=== PATIENT | male | born 1960 | race Two or more races ===

== ENCOUNTER 2017-07-05 09:19 | Inpatient (IN) | payer OTHER ==
[~2017-07-05] VITALS: Ht 182.9 cm; Wt 124.0 kg
[2017-07-05] VITALS (15 sets, daily range): BP systolic 103–157; BP diastolic 64–80; PULSE 75–94; RESP 16–24; TEMP 99–100.5; O2SAT 100
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
[2017-07-05 09:39] LABS: AUTOMATED NEUTROPHIL # 6.2 TH/MM3 (1.8-7.7); BASOPHIL # 0.1 TH/MM3 (0-0.2); BASOPHIL % 0.9 % (0.0-2.0); EOSINOPHIL # 0.1 TH/MM3 (0-0.4); EOSINOPHIL % 1.5 % (0.0-4.0); HEMATOCRIT 39.9 % (39.0-51.0); HEMOGLOBIN 13.8 GM/DL (13.0-17.0); LYMPH % 23.9 % (9.0-44.0); LYMPHOCYTE # 2.3 TH/MM3 (1.0-4.8); MEAN CELL VOLUME 92.2 FL (80.0-100.0); MEAN CORPUSCULAR HEMOGLOBIN 31.9 PG (27.0-34.0); MEAN CORPUSCULAR HGB CONC 34.6 % (32.0-36.0); MEAN PLATELET VOLUME 9.3 FL (7.0-11.0); MONO % 8.8 % (0.0-8.0); MONOCYTE # 0.8 TH/MM3 (0-0.9); NEUT % 64.9 % (16.0-70.0); PLATELET COUNT 201 TH/MM3 (150-450); RED BLOOD COUNT 4.33 MIL/MM3 (4.50-5.90); RED CELL DISTRIBUTION WIDTH 13.5 % (11.6-17.2); WHITE BLOOD COUNT 9.5 TH/MM3 (4.0-11.0)
[2017-07-05] MEDS ORDERED: ceFAZolin 2 GM PREMIX 50 ML IV STA (09:42)
[2017-07-05 09:48] LABS: PROTHROMBIN TIME - PATIENT 10.4 SEC (9.8-11.6)
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
[2017-07-05] MEDS ORDERED: DIPHTH/TETANUS/ACEL PERTUSSIS (BOOSTER) 0.5 ML VIAL/PFS IM ONE ×2 (10:00→10:08)
[2017-07-05] MEDS ORDERED: MISCELLANEOUS NURSING INFORMATION XX SCH (10:00)
[2017-07-05] MEDS ORDERED: ONDANSETRON HCL 4 MG/2 ML VIAL IV PUSH PRN (10:00)
[2017-07-05] MEDS ORDERED: SODIUM CHLOR 0.9% 1000 ML INJ 1,000 ML IV ONE ×2 (10:00→16:15)
[2017-07-05] MEDS ORDERED: SODIUM CHLOR 0.9% 1000 ML INJ 1,000 ML IV SCH (10:00)
[2017-07-05] MEDS ORDERED: CHLORHEXIDINE GLUCONATE 2 % 1 PACK (2 CLOTHS) TOP PRN (10:00)
[2017-07-05] MEDS ORDERED: SODIUM CHLORIDE 0.9% FLUSH 10 ML FLUSH IV FLUSH PRN (10:00)
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
[2017-07-05] MEDS ORDERED: ceFAZolin 2 GM PREMIX 50 ML ONE ×2 (10:08→23:28)
[2017-07-05] MEDS: DOCUSATE SODIUM 100 MG CAP PO SCH ×2 (10:15→20:30)
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
[2017-07-05] MEDS: PROPOFOL 1000 MG/100 ML INJ 100 ML IV PRN ×3 (10:30→20:29)
[2017-07-05] MEDS ORDERED: ROCURONIUM INJ 50 MG/5 ML VIAL ONE (10:38)
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
[2017-07-05] MEDS ORDERED: LIDOCAINE HCL 1% 50 ML VIAL ONE (10:45)
[2017-07-05] MEDS: PANTOPRAZOLE SODIUM 40 MG VIAL IVP SCH (11:00)
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
[2017-07-05] MEDS ORDERED: IOHEXOL 350 MG/ML 10 ML VIAL (for RAD DIAG) IVCONTRAST ONE ×2 (11:23→18:32)
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
[2017-07-05] MEDS ORDERED: Post-op Orders (for Pharmacy) XX ONE (12:15)
[2017-07-05] MEDS ORDERED: fentaNYL DRIP 250 ML IV PRN (12:15)
[2017-07-05] MEDS ORDERED: NALOXONE HCL 0.4 MG/ML AMP IV PUSH PRN (12:15)
[2017-07-05] MEDS: SODIUM CHLOR 0.9% 1000 ML INJ 1,000 ML IV SCH ×4 (12:15→22:15)
[2017-07-05] MEDS ORDERED: ALBUMIN 5% INJ 500 ML IV ONE ×2 (12:15→12:30)
[2017-07-05] MEDS ORDERED: PROPOFOL 1000 MG/100 ML INJ 100 ML IV PRN (12:15)
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
[2017-07-05 13:16] LABS: BILIRUBIN, URINE NEG (NEG); BLOOD, URINE MOD (NEG); GLUCOSE,URINE 300 mg/dL (NEG); KETONE, URINE TRACE mg/dL (NEG); NITRITE,URINE NEG (NEG); PH, URINE 6.5 (5.0-8.5); SQUAMOUS EPITHELIAL CELL URINE <1 /hpf (0-5); URINE COLOR YELLOW (YELLW/STRAW); URINE LEUKOCYTE ESTERASE NEG (NEG)
--- NOTE | 2017-07-05 15:02 | RADRPT ---
EXAM DATE/TIME: 07/05/2017 14:38 [facility] COMPARISON: CHEST SINGLE AP, July 05, 2017, 9:22. INDICATIONS : Central line and chest tube placement. MEDICAL HISTORY : None. SURGICAL HISTORY : None. ENCOUNTER: Initial ACUITY: 1 day PAIN SCORE: Non-responsive. LOCATION: Bilateral chest FINDINGS: A single AP supine portable view of the chest was obtained and demonstrates interval placement of a r ight-sided chest tube with no visualized pneumothorax. A right subclavian central venous line has bee n place with tip projected over the superior vena cava. The endotracheal tube remains in place with t he tip 3 cm above the chung. A nasogastric tube is been placed and is seen coursing through the esop hagus and into the stomach. The heart size remains within normal limits. There are no confluent infil trates or effusions. The known rib fractures are not distinctly visualized. CONCLUSION: 1. Interval placement of right-sided chest tube and right subclavian central venous line with no visu alized pneumothorax. 2. The patient remains intubated with no acute cardiopulmonary disease. 3. Interval placement of nasogastric tube. Joselo Ortega MD on July 05, 2017 at 14:59 Board Certified Radiologist. This report was verified electronically.
[2017-07-05] MEDS: fentaNYL DRIP 250 ML IV PRN (15:22)
[2017-07-05 15:45] LABS: AUTOMATED NEUTROPHIL # 11.6 TH/MM3 (1.8-7.7); BASOPHIL % 0.1 % (0.0-2.0); HEMATOCRIT 26.3 % (39.0-51.0); HEMOGLOBIN 9.1 GM/DL (13.0-17.0); LYMPH % 6.5 % (9.0-44.0); LYMPHOCYTE # 0.9 TH/MM3 (1.0-4.8); MEAN CELL VOLUME 94.7 FL (80.0-100.0); MEAN CORPUSCULAR HEMOGLOBIN 32.6 PG (27.0-34.0); MEAN CORPUSCULAR HGB CONC 34.4 % (32.0-36.0); MEAN PLATELET VOLUME 9.8 FL (7.0-11.0); MONO % 11.6 % (0.0-8.0); MONOCYTE # 1.6 TH/MM3 (0-0.9); NEUT % 81.8 % (16.0-70.0); PLATELET COUNT 136 TH/MM3 (150-450); RED BLOOD COUNT 2.78 MIL/MM3 (4.50-5.90); RED CELL DISTRIBUTION WIDTH 13.3 % (11.6-17.2); WHITE BLOOD COUNT 14.2 TH/MM3 (4.0-11.0)
--- NOTE | 2017-07-05 16:06 | PD.PROCEDR ---
Procedure Note Procedure DX: Closed head injury, coma OP: Insertion left radial arterial line ([id number]) Procedure: Gerald test normal left hand. Left wrist supinated, prepped and draped. Left radial artery cannulated with 20 guage needle and wire easily advanced. Cannula passed over wire to 3 cm. Good waveform observed. Dressing applied. Circulation to left hand intact after procedure. Juanjose Allen MD Jul 05, 2017 16:06
[2017-07-05 16:11] LABS: BICARBONATE 21.9 MEQ/L (21.0-32.0); CALCIUM 8.2 MG/DL (8.5-10.1); CREATININE 1.89 MG/DL (0.60-1.30)
--- NOTE | 2017-07-05 16:56 | RADRPT ---
EXAM DATE/TIME: 07/05/2017 16:14 [facility] COMPARISON: CT THORACIC SPINE W CONTRAST, July 05, 2017, 9:52. INDICATIONS : Trauma. T9 fracture. MEDICAL HISTORY : Unknown. Cleared by Rad. SURGICAL HISTORY : Unknown. ENCOUNTER: Initial ACUITY: 1 day PAIN SCORE: Nonresponsive. LOCATION: t-spine TECHNIQUE: Multiplanar multisequence MRI of the thoracic spine was performed. FINDINGS: MRI examination again demonstrates a transverse 3 column T9 superior endplate fracture with associate d distraction and subluxation of the T8-T9 facet joints. There is a 3 mm anterolisthesis of T9 on T8. There is disruption of the anterior and posterior longitudinal ligaments as well as the interspinous ligaments. There is heterogeneous signal posterior epidural hematoma at T8-9 with complete effacemen t of the anterior thecal sac. There is increased T2 signal in the anterior thoracic cord at T9. Remai gualberto vertebral body heights are intact. Central canal is otherwise patent. CONCLUSION: 1. Redemonstration of 3 column chance fracture at T9 with associated distraction and subluxation of t he T8-T9 facet joints and disruption of the longitudinal and interspinous ligaments. 2. Large posterior epidural hematoma with near complete effacement of the thecal sac at T9 level. 3. Focal anterior thoracic cord edema at T9 level like reflects cord contusion. Seven Franco MD on July 05, 2017 at 16:45 Board Certified Radiologist. This report was verified electronically.
--- NOTE | 2017-07-05 16:59 | RADRPT ---
EXAM DATE/TIME: 07/05/2017 16:14 [facility] COMPARISON: CT BRAIN W/O CONTRAST, July 05, 2017, 9:35. INDICATIONS : Trauma. MEDICAL HISTORY : Drain placed in head. SURGICAL HISTORY : Unknown. Cleared by Rad. ENCOUNTER: Initial ACUITY: 1 day PAIN SCORE: Nonresponsive. LOCATION: head TECHNIQUE: Multiplanar, multisequence MRI of the brain was performed without contrast. FINDINGS: Traumatic brain injury which includes small amount of subarachnoid hemorrhage, intraventricular blood and posterior interhemispheric small subdural hematoma is again noted and has remained stable compar ed to the recent CT. A right frontal ventriculostomy has been placed. There is no evidence of significant restricted diffusion or mass effect. No discrete parenchymal hemo rrhages are noted. CONCLUSION: Stable hemorrhage status post traumatic brain injury as described above. No evidence of acute infarct, significant mass effect or edema. New right frontal ventriculostomy. Kade Lima MD on July 05, 2017 at 16:52 Board Certified Radiologist. This report was verified electronically.
--- NOTE | 2017-07-05 18:00 | PD.OP ---
Operative Report Date of Surgery: Jul 05, 2017 Preoperative Diagnosis: (1) Intracranial hemorrhage Intracranial - subarachnoid hemorrhage Postoperative Diagnosis: (1) Intracranial hemorrhage Intracranial - subarachnoid hemorrhage Procedure: Right frontal twist drill for ventriculostomy placement Anesthesia: Intravenous sedation. 1% Xylocaine local anesthetic Surgeon: Martin Akins Pole Incisor Operator(s): None Operation and Findings: The procedure was performed in the surgical intensive care unit. No family was available for informed consent. The procedure was considered medically necessary on a emergency basis. Appropriate timeout procedure was performed with all personnel present and in agreement The patient was placed in supine position with the head and neck in neutral position and the head of the bed elevated approximately 20 The right frontal region was shaved with clippers and sterilely prepped and draped. One percent Xylocaine without epinephrine was used for local infiltration over the small incision site which was made approximately 9-10 cm above the right supraorbital rim, approximately 3-1/2 to 4 cm lateral to the midline, in the mid pupillary line just anterior to the coronal suture. The hand drill was used to make a single twist drill opening in the cranium and the dura was perforated with the trocar. The Codman Bactiseal ventriculostomy catheter was advanced to a depth of 6-7 cm intracranial in a single pass with good return of spinal fluid. Opening pressure was 5 centimeter water The catheter was tunneled to the posterior frontal region with a trocar and secured to the skin with 3-0 nylon suture which was also used to close the small incision. A sterile bactericidal dressing was applied The catheter was connected to the drainage reservoir, and there was good drainage of fluid. The patient's neurologic exam remained stable following the procedure No specimen was sent There was no significant bleeding Martin Akins MD Jul 05, 2017 18:00
--- NOTE | 2017-07-05 18:10 | RADRPT ---
EXAM DATE/TIME: 07/05/2017 17:04 [facility] COMPARISON: CT BRAIN W/O CONTRAST, July 05, 2017, 9:35. INDICATIONS : Tramatic bleed,evaluate for aneurysm IV CONTRAST: 70 cc Omnipaque 350 (iohexol) IV ; Cumulative dose for multiple exams. RADIATION DOSE: 18.62 CTDIvol (mGy) ; Combined studies MEDICAL HISTORY : Non-responsive. SURGICAL HISTORY : Non-responsive. ENCOUNTER: Initial ACUITY: 1 day PAIN SCALE: Non-responsive LOCATION: CTA Brain TECHNIQUE: Volumetric scanning was performed using a multi-row detector CT scanner. The data was post processed with a variety of visualization algorithms including full volume maximum intensity projection, multi -planar sliding thin slab reformation, curved planar reformation, and surface rendering techniques. Using automated exposure control and adjustment of the mA and/or kV according to patient size, radiat ion dose was kept as low as reasonably achievable to obtain optimal diagnostic quality images. DICO M format image data is available electronically for review and comparison. FINDINGS: Anterior circulation: Distal intracranial internal carotid arteries are patent with flow extending to the middle and anteri or cerebral arteries. There is no evidence for aneurysm, vessel truncation or stenosis, and no eviden ce for vascular malformation. Posterior circulation: Symmetric distal vertebral arteries with flow extending to basilar artery. Left [employer] origin. Th ere is no evidence for aneurysm, vessel truncation or stenosis, and no evidence for vascular malforma tion. Interval placement of right frontal ventriculostomy catheter with tip near the third ventricle. CONCLUSION: 1. Unremarkable CTA examination of the brain. Specifically, no evidence for aneurysm or vascular malf ormation. Seven Franco MD on July 05, 2017 at 18:06 Board Certified Radiologist. This report was verified electronically.
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
[2017-07-05] MEDS: CHLORHEXIDINE 0.12% (ORAL KIT) 15 ML CUP MT SCH (20:00)
[2017-07-05] MEDS: levETIRAcetam INJ 500 MG in SODIUM CHLORIDE 0.9% INJ 100 ML IV SCH (20:30)
[2017-07-06] VITALS (18 sets, daily range): BP systolic 116–145; BP diastolic 54–79; PULSE 54–93; RESP 11–19; TEMP 97.8–101.4; O2SAT 98–100
[2017-07-06] MEDS: PROPOFOL 1000 MG/100 ML INJ 100 ML IV PRN ×5 (01:40→22:03)
[2017-07-06] MEDS: fentaNYL DRIP 250 ML IV PRN ×2 (02:24→14:27)
[2017-07-06 03:28] LABS: AUTOMATED NEUTROPHIL # 9.3 TH/MM3 (1.8-7.7); BASOPHIL % 0.2 % (0.0-2.0); HEMATOCRIT 25.8 % (39.0-51.0); HEMOGLOBIN 8.8 GM/DL (13.0-17.0); LYMPH % 14.3 % (9.0-44.0); LYMPHOCYTE # 1.9 TH/MM3 (1.0-4.8); MEAN CELL VOLUME 93.2 FL (80.0-100.0); MEAN CORPUSCULAR HEMOGLOBIN 31.7 PG (27.0-34.0); MEAN PLATELET VOLUME 9.9 FL (7.0-11.0); MONO % 13.5 % (0.0-8.0); MONOCYTE # 1.7 TH/MM3 (0-0.9); PLATELET COUNT 131 TH/MM3 (150-450); RED BLOOD COUNT 2.76 MIL/MM3 (4.50-5.90); RED CELL DISTRIBUTION WIDTH 13.8 % (11.6-17.2); WHITE BLOOD COUNT 12.9 TH/MM3 (4.0-11.0)
[2017-07-06 03:43] LABS: BICARBONATE 22.1 MEQ/L (21.0-32.0); CALCIUM 7.5 MG/DL (8.5-10.1); CREATININE 2.41 MG/DL (0.60-1.30)
[2017-07-06] MEDS: CHLORHEXIDINE GLUCONATE 2 % 1 PACK (2 CLOTHS) TOP SCH (04:00)
[2017-07-06] MEDS ORDERED: SODIUM CHLORID 0.9% 500 ML INJ 500 ML IV ONE (04:15)
[2017-07-06] MEDS ORDERED: SODIUM CHLOR 0.9% 250 ML INJ 250 ML IV ONE (04:15)
[2017-07-06] MEDS ORDERED: ACETAMINOPHEN 1000 MG/100 ML 65 ML IV ONE (04:15)
[2017-07-06 04:30] LABS: DIRECT BILIRUBIN ADULT 0.1 MG/DL (0.0-0.2)
[2017-07-06 04:32] LABS: INDIRECT BILIRUBIN 0.2 MG/DL (0.0-0.8); TOTAL BILIRUBIN ADULT 0.3 MG/DL (0.2-1.0); TOTAL PROTEIN 5.7 GM/DL (6.4-8.2)
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
--- NOTE | 2017-07-06 06:47 | MP ---
cc: ANTONY COPELAND MD DATE OF SURGERY 07/05/2017 PREOPERATIVE DIAGNOSIS Right hemothorax, trauma. POSTOPERATIVE DIAGNOSIS Right hemothorax, trauma. OPERATIVE PROCEDURE Chest tube placement. SURGEON Antony Copeland MD ANESTHESIA 1% Xylocaine ESTIMATED BLOOD LOSS Minimal PROCEDURE NOTE The patient prepped and draped in the usual fashion. I infiltrated 1% Xylocaine. An incision made in the midaxillary line at about the sixth intercostal space, deepened down with a hemostat into the pleural space and then a 32-[place] chest tube placed in the posterior sulcus, sutured in place with 0-silk and connected to Pleur-Evac. About 700 cc of dark old blood is drained and lung fully expanded. Antony TREVIZO/DJL /2:14 PM /6:21 AM
[2017-07-06] MEDS: DOCUSATE SODIUM 100 MG CAP PO SCH ×2 (08:31→21:00)
[2017-07-06] MEDS: levETIRAcetam INJ 500 MG in SODIUM CHLORIDE 0.9% INJ 100 ML IV SCH ×2 (08:32→21:56)
[2017-07-06] MEDS: SODIUM CHLOR 0.9% 1000 ML INJ 1,000 ML IV SCH ×2 (08:32→21:55)
[2017-07-06] MEDS: CHLORHEXIDINE 0.12% (ORAL KIT) 15 ML CUP MT SCH ×2 (08:37→21:43)
[2017-07-06] MEDS ORDERED: GLUCAGON 1 MG/ML VIAL OTHER PRN (09:45)
[2017-07-06] MEDS ORDERED: DEXTROSE 50% IN WATER 50 ML SYRINGE IV PUSH PRN (09:45)
[2017-07-06] MEDS: MAGNESIUM HYDROXIDE SUSP 30 ML CUP PO SCH ×2 (10:09→21:55)
[2017-07-06] MEDS: PANTOPRAZOLE SODIUM 40 MG VIAL IVP SCH (10:09)
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
[2017-07-06] MEDS: INSULIN ASPART SUPPLEMENTAL SCALE SQ SCH ×2 (11:29→23:13)
[2017-07-06 11:36] LABS: HEMATOCRIT 25.8 % (39.0-51.0); HEMOGLOBIN 8.7 GM/DL (13.0-17.0)
[2017-07-06] MEDS ORDERED: ROCURONIUM INJ 50 MG/5 ML SYRINGE IV PUSH ONE (12:00)
[2017-07-06] MEDS ORDERED: PHENYLEPH/NS 1000 MCG/10 ML SYR IV ONE (12:00)
[2017-07-06] MEDS ORDERED: NORMOSOL R INJ 2,000 ML IV ONE (12:00)
[2017-07-06] MEDS ORDERED: PHENYLEPHRINE HCL 10 MG/ML VIAL IV ONE (12:00)
[2017-07-06] MEDS ORDERED: PROPOFOL 200 MG/20 ML AMP IV ONE (12:00)
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
[2017-07-06] MEDS ORDERED: HEPARIN SODIUM - SQ 10,000 UNITS/ML VIAL ONE (13:15)
[2017-07-06] MEDS ORDERED: GENTAMICIN SULFATE 80 MG/2 ML VIAL ONE (13:16)
[2017-07-06] MEDS ORDERED: LIDOCAINE 1%/EPINEPHrine 1:100,000 SOLN 20 ML VIAL ONE (13:16)
[2017-07-06] MEDS ORDERED: THROMBIN (TOPICAL) 5,000 UNIT VIAL ONE (13:16)
[2017-07-06] MEDS ORDERED: GELFOAM SIZE 100 ONE (13:16)
[2017-07-06] MEDS ORDERED: PROPOFOL 500 MG/50 ML INJ 100 ML ONE (15:31)
[2017-07-06] MEDS ORDERED: ARTIFICIAL TEARS OPTH OINT 3.5 APPLIC/3.5 GM TUBO ONE (15:31)
[2017-07-06] MEDS ORDERED: ceFAZolin 2 GM PREMIX 50 ML ONE (15:41)
[2017-07-06] MEDS ORDERED: BUPIVACAINE LIPOSOME PF 1.3% 20 ML VIAL ONE (15:41)
[2017-07-06] MEDS ORDERED: BUPIVACAINE HCL PF 0.25% 30 ML VIAL ONE (15:44)
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
--- NOTE | 2017-07-06 23:20 | EKG ---
Date Performed: 07/05/2017 Time Performed: 14:54:38 PTAGE: 89 years EKG: Sinus rhythm . Normal ECG NO PREVIOUS TRACING DOCTOR: Shawn Hodgson Interpretating Date/Time 07/06/2017 23:19:48
[2017-07-07] VITALS (19 sets, daily range): BP systolic 121–149; BP diastolic 50–68; PULSE 69–100; RESP 11–17; TEMP 97.3–99.7; O2SAT 100
[2017-07-07] MEDS: fentaNYL DRIP 250 ML IV PRN ×2 (02:28→15:14)
[2017-07-07] MEDS: PROPOFOL 1000 MG/100 ML INJ 100 ML IV PRN ×5 (02:28→20:23)
[2017-07-07] MEDS: CHLORHEXIDINE GLUCONATE 2 % 1 PACK (2 CLOTHS) TOP SCH (04:00)
[2017-07-07 04:06] LABS: AUTOMATED NEUTROPHIL # 8.1 TH/MM3 (1.8-7.7); BASOPHIL # 0.1 TH/MM3 (0-0.2); BASOPHIL % 0.6 % (0.0-2.0); EOSINOPHIL # 0.2 TH/MM3 (0-0.4); EOSINOPHIL % 1.6 % (0.0-4.0); LYMPHOCYTE # 1.7 TH/MM3 (1.0-4.8); MEAN CELL VOLUME 93.7 FL (80.0-100.0); MEAN CORPUSCULAR HEMOGLOBIN 32.6 PG (27.0-34.0); MEAN CORPUSCULAR HGB CONC 34.8 % (32.0-36.0); MEAN PLATELET VOLUME 9.3 FL (7.0-11.0); MONO % 11.7 % (0.0-8.0); MONOCYTE # 1.3 TH/MM3 (0-0.9); NEUT % 71.1 % (16.0-70.0); PLATELET COUNT 98 TH/MM3 (150-450); RED BLOOD COUNT 2.45 MIL/MM3 (4.50-5.90); RED CELL DISTRIBUTION WIDTH 13.8 % (11.6-17.2); WHITE BLOOD COUNT 11.4 TH/MM3 (4.0-11.0)
[2017-07-07] MEDS: SODIUM CHLOR 0.9% 1000 ML INJ 1,000 ML IV SCH ×2 (04:15→13:48)
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
[2017-07-07 04:50] LABS: ALBUMIN 2.4 GM/DL (3.4-5.0); BICARBONATE 20.2 MEQ/L (21.0-32.0); CALCIUM 7.2 MG/DL (8.5-10.1); CALCIUM-PROTEIN CORRECTED 8.3 MG/DL (8.5-10.1); CREATININE 1.65 MG/DL (0.60-1.30); TOTAL BILIRUBIN ADULT 0.4 MG/DL (0.2-1.0)
[2017-07-07] MEDS: INSULIN ASPART SUPPLEMENTAL SCALE SQ SCH ×2 (05:04→11:38)
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
[2017-07-07] MEDS: DOCUSATE SODIUM 100 MG CAP PO SCH ×2 (09:26→20:22)
[2017-07-07] MEDS: MAGNESIUM HYDROXIDE SUSP 30 ML CUP PO SCH ×2 (09:27→20:22)
[2017-07-07] MEDS: levETIRAcetam INJ 500 MG in SODIUM CHLORIDE 0.9% INJ 100 ML IV SCH ×2 (09:27→20:22)
[2017-07-07] MEDS: CHLORHEXIDINE 0.12% (ORAL KIT) 15 ML CUP MT SCH ×2 (09:27→20:00)
[2017-07-07] MEDS: PROPRANOLOL HCL 10 MG TAB PO SCH ×3 (10:47→21:45)
[2017-07-07] MEDS: PANTOPRAZOLE SODIUM 40 MG VIAL IVP SCH (10:47)
[2017-07-07] MEDS ORDERED: SODIUM CHLOR 0.9% 1000 ML INJ 1,000 ML IV ONE (15:30)
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
[2017-07-07] MEDS ORDERED: GLUCAGON 1 MG/ML VIAL OTHER PRN (16:00)
[2017-07-07] MEDS ORDERED: DEXTROSE 50% IN WATER 50 ML VIAL(D50) IV PUSH PRN (16:00)
[2017-07-07] MEDS: MEDIUM DOSE INSULIN NOVOLOG SUPPLEMENTAL SCALE SQ SCH ×2 (18:34→23:37)
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
[2017-07-08] VITALS (24 sets, daily range): BP systolic 120–165; BP diastolic 53–72; PULSE 76–101; RESP 14–16; TEMP 98.9–100.6; O2SAT 96–100
[2017-07-08] MEDS: SODIUM CHLOR 0.9% 1000 ML INJ 1,000 ML IV SCH ×2 (00:33→14:17)
[2017-07-08] MEDS: hydrALAZINE HCL 20 MG/ML VIAL IV PRN ×3 (03:23→20:09)
[2017-07-08] MEDS: CHLORHEXIDINE GLUCONATE 2 % 1 PACK (2 CLOTHS) TOP SCH (04:00)
[2017-07-08 04:43] LABS: AUTOMATED NEUTROPHIL # 5.7 TH/MM3 (1.8-7.7); BASOPHIL % 0.3 % (0.0-2.0); EOSINOPHIL # 0.3 TH/MM3 (0-0.4); HEMOGLOBIN 7.2 GM/DL (13.0-17.0); LYMPH % 11.7 % (9.0-44.0); LYMPHOCYTE # 0.9 TH/MM3 (1.0-4.8); MEAN CELL VOLUME 94.5 FL (80.0-100.0); MEAN CORPUSCULAR HEMOGLOBIN 32.5 PG (27.0-34.0); MEAN CORPUSCULAR HGB CONC 34.4 % (32.0-36.0); MEAN PLATELET VOLUME 9.6 FL (7.0-11.0); MONO % 12.5 % (0.0-8.0); NEUT % 71.5 % (16.0-70.0); PLATELET COUNT 99 TH/MM3 (150-450); RED BLOOD COUNT 2.22 MIL/MM3 (4.50-5.90); RED CELL DISTRIBUTION WIDTH 13.8 % (11.6-17.2)
[2017-07-08 05:06] LABS: ALBUMIN 2.1 GM/DL (3.4-5.0); ALT (GPT) 50 U/L (12-78); AST (GOT) 44 U/L (15-37); BICARBONATE 21.5 MEQ/L (21.0-32.0); BLOOD UREA NITROGEN 24 MG/DL (7-18); CALCIUM 7.7 MG/DL (8.5-10.1); CHLORIDE 117 MEQ/L (98-107); CREATININE 1.18 MG/DL (0.60-1.30); GLOMERULAR FILTRATION RATE 64 ML/MIN (>89); GLUCOSE,RANDOM 237 MG/DL (74-106); SODIUM (NA) 146 MEQ/L (136-145)
[2017-07-08 05:09] LABS: ALKALINE PHOSPHATASE 52 U/L (45-117); TOTAL BILIRUBIN ADULT 0.3 MG/DL (0.2-1.0); TOTAL PROTEIN 5.2 GM/DL (6.4-8.2)
[2017-07-08] MEDS: MEDIUM DOSE INSULIN NOVOLOG SUPPLEMENTAL SCALE SQ SCH ×3 (06:00→19:57)
[2017-07-08] MEDS: PROPRANOLOL HCL 10 MG TAB PO SCH ×2 (06:00→22:38)
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
[2017-07-08] MEDS: CHLORHEXIDINE 0.12% (ORAL KIT) 15 ML CUP MT SCH ×2 (08:58→20:10)
[2017-07-08] MEDS: levETIRAcetam INJ 500 MG in SODIUM CHLORIDE 0.9% INJ 100 ML IV SCH ×2 (09:02→20:09)
[2017-07-08] MEDS: DOCUSATE SODIUM 100 MG CAP PO SCH ×2 (09:02→20:09)
[2017-07-08] MEDS: MAGNESIUM HYDROXIDE SUSP 30 ML CUP PO SCH ×2 (09:02→20:09)
[2017-07-08] MEDS ORDERED: FUROSEMIDE 40 MG/4 ML VIAL IV PUSH ONE (10:00)
[2017-07-08] MEDS ORDERED: SODIUM CHLOR 0.9% 250 ML INJ 250 ML IV ONE (10:00)
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
[2017-07-08] MEDS: INSULIN DETEMIR 100 UNITS/ML VIAL SQ SCH ×2 (12:49→20:10)
[2017-07-08] MEDS: PANTOPRAZOLE SODIUM 40 MG VIAL IVP SCH (12:49)
[2017-07-08] MEDS: ENOXAPARIN SODIUM 40 MG/0.4 ML SYRINGE SQ SCH (13:00)
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
[2017-07-08] MEDS: PROPOFOL 1000 MG/100 ML INJ 100 ML IV PRN (22:39)
[2017-07-09] VITALS (18 sets, daily range): BP systolic 120–160; BP diastolic 54–77; PULSE 8–100; RESP 14–18; TEMP 98.7–99.7; O2SAT 97–100
[2017-07-09] MEDS: MEDIUM DOSE INSULIN NOVOLOG SUPPLEMENTAL SCALE SQ SCH ×4 (00:11→18:55)
[2017-07-09] MEDS: SODIUM CHLOR 0.9% 1000 ML INJ 1,000 ML IV SCH (03:37)
[2017-07-09] MEDS: CHLORHEXIDINE GLUCONATE 2 % 1 PACK (2 CLOTHS) TOP SCH (04:00)
[2017-07-09] MEDS: PROPRANOLOL HCL 10 MG TAB PO SCH ×3 (05:01→22:25)
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
[2017-07-09] MEDS: hydrALAZINE HCL 20 MG/ML VIAL IV PRN (06:01)
[2017-07-09] MEDS: PROPOFOL 1000 MG/100 ML INJ 100 ML IV PRN ×3 (06:02→21:05)
[2017-07-09 06:12] LABS: BASOPHIL % 0.3 % (0.0-2.0); EOSINOPHIL # 0.6 TH/MM3 (0-0.4); EOSINOPHIL % 5.1 % (0.0-4.0); HEMATOCRIT 26.5 % (39.0-51.0); HEMOGLOBIN 9.4 GM/DL (13.0-17.0); LYMPHOCYTE # 1.1 TH/MM3 (1.0-4.8); MEAN CELL VOLUME 90.8 FL (80.0-100.0); MEAN CORPUSCULAR HEMOGLOBIN 32.1 PG (27.0-34.0); MEAN CORPUSCULAR HGB CONC 35.3 % (32.0-36.0); MEAN PLATELET VOLUME 9.8 FL (7.0-11.0); MONO % 10.3 % (0.0-8.0); MONOCYTE # 1.2 TH/MM3 (0-0.9); NEUT % 75.3 % (16.0-70.0); PLATELET COUNT 133 TH/MM3 (150-450); RED BLOOD COUNT 2.91 MIL/MM3 (4.50-5.90); RED CELL DISTRIBUTION WIDTH 15.1 % (11.6-17.2); WHITE BLOOD COUNT 11.9 TH/MM3 (4.0-11.0)
[2017-07-09 06:31] LABS: ALBUMIN 2.1 GM/DL (3.4-5.0); AST (GOT) 35 U/L (15-37); BICARBONATE 27.2 MEQ/L (21.0-32.0); BLOOD UREA NITROGEN 24 MG/DL (7-18); CHLORIDE 116 MEQ/L (98-107); CREATININE 1.11 MG/DL (0.60-1.30); GLOMERULAR FILTRATION RATE 68 ML/MIN (>89); GLUCOSE,RANDOM 141 MG/DL (74-106); SODIUM (NA) 150 MEQ/L (136-145)
[2017-07-09 06:34] LABS: ALKALINE PHOSPHATASE 55 U/L (45-117); ALT (GPT) 44 U/L (12-78); TOTAL BILIRUBIN ADULT 0.4 MG/DL (0.2-1.0); TOTAL PROTEIN 5.9 GM/DL (6.4-8.2)
[2017-07-09] MEDS: CHLORHEXIDINE 0.12% (ORAL KIT) 15 ML CUP MT SCH ×2 (08:00→20:00)
[2017-07-09] MEDS: DOCUSATE SODIUM 100 MG CAP PO SCH ×2 (09:42→22:24)
[2017-07-09] MEDS: LACTULOSE SYRUP 20 GM/30 ML CUP PO SCH (09:42)
[2017-07-09] MEDS: levETIRAcetam INJ 500 MG in SODIUM CHLORIDE 0.9% INJ 100 ML IV SCH ×2 (09:42→22:24)
[2017-07-09] MEDS: MAGNESIUM HYDROXIDE SUSP 30 ML CUP PO SCH ×2 (09:43→22:25)
[2017-07-09] MEDS: INSULIN DETEMIR 100 UNITS/ML VIAL SQ SCH ×2 (09:53→22:25)
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
[2017-07-09] MEDS: RESP: ALBUTEROL 2.5 MG/IPRATROPIUM 0.5 MG NEB (PRN) NEB (11:21)
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
[2017-07-09] MEDS: PANTOPRAZOLE SODIUM 40 MG VIAL IVP SCH (11:48)
[2017-07-09] MEDS: ENOXAPARIN SODIUM 40 MG/0.4 ML SYRINGE SQ SCH (13:50)
[2017-07-09] MEDS: fentaNYL DRIP 250 ML IV PRN (14:03)
[2017-07-09] MEDS: RESP: ALBUTEROL 2.5 MG/IPRATROPIUM 0.5 MG NEB (SCH) NEB ×2 (16:23→20:29)
[2017-07-10] VITALS (20 sets, daily range): BP systolic 112–179; BP diastolic 52–99; PULSE 69–121; RESP 14–15; TEMP 97.4–100.7; O2SAT 93–100
[2017-07-10] MEDS: MEDIUM DOSE INSULIN NOVOLOG SUPPLEMENTAL SCALE SQ SCH ×4 (00:24→18:00)
[2017-07-10] MEDS: CHLORHEXIDINE GLUCONATE 2 % 1 PACK (2 CLOTHS) TOP SCH ×2 (03:19→19:45)
[2017-07-10] MEDS: PROPOFOL 1000 MG/100 ML INJ 100 ML IV PRN ×2 (03:19→06:11)
[2017-07-10] MEDS: RESP: ALBUTEROL 2.5 MG/IPRATROPIUM 0.5 MG NEB (SCH) NEB ×4 (04:09→20:07)
[2017-07-10 05:26] LABS: AUTOMATED NEUTROPHIL # 8.1 TH/MM3 (1.8-7.7); BASOPHIL % 0.4 % (0.0-2.0); EOSINOPHIL # 0.8 TH/MM3 (0-0.4); EOSINOPHIL % 7.2 % (0.0-4.0); HEMATOCRIT 27.5 % (39.0-51.0); HEMOGLOBIN 9.4 GM/DL (13.0-17.0); LYMPH % 10.9 % (9.0-44.0); LYMPHOCYTE # 1.3 TH/MM3 (1.0-4.8); MEAN CELL VOLUME 92.3 FL (80.0-100.0); MEAN CORPUSCULAR HEMOGLOBIN 31.5 PG (27.0-34.0); MEAN CORPUSCULAR HGB CONC 34.1 % (32.0-36.0); MEAN PLATELET VOLUME 9.4 FL (7.0-11.0); MONO % 12.1 % (0.0-8.0); MONOCYTE # 1.4 TH/MM3 (0-0.9); NEUT % 69.4 % (16.0-70.0); PLATELET COUNT 156 TH/MM3 (150-450); RED BLOOD COUNT 2.98 MIL/MM3 (4.50-5.90); RED CELL DISTRIBUTION WIDTH 14.7 % (11.6-17.2); WHITE BLOOD COUNT 11.6 TH/MM3 (4.0-11.0)
[2017-07-10 05:44] LABS: ALBUMIN 1.9 GM/DL (3.4-5.0); AST (GOT) 28 U/L (15-37); BICARBONATE 28.2 MEQ/L (21.0-32.0); BLOOD UREA NITROGEN 28 MG/DL (7-18); CALCIUM 8.4 MG/DL (8.5-10.1); CHLORIDE 114 MEQ/L (98-107); CREATININE 1.03 MG/DL (0.60-1.30); GLOMERULAR FILTRATION RATE 74 ML/MIN (>89); GLUCOSE,RANDOM 231 MG/DL (74-106); SODIUM (NA) 147 MEQ/L (136-145)
[2017-07-10 05:45] LABS: ALT (GPT) 41 U/L (12-78)
[2017-07-10 05:47] LABS: ALKALINE PHOSPHATASE 110 U/L (45-117); TOTAL BILIRUBIN ADULT 0.4 MG/DL (0.2-1.0); TOTAL PROTEIN 6.1 GM/DL (6.4-8.2)
--- NOTE | 2017-07-10 06:05 | RADRPT ---
EXAM DATE/TIME: 07/10/2017 05:11 [facility] COMPARISON: CHEST SINGLE AP, July 09, 2017, 4:15. INDICATIONS : Shortness of breath, possible pulmonary disease. MEDICAL HISTORY : None. SURGICAL HISTORY : None. ENCOUNTER: Subsequent ACUITY: 1 week PAIN SCORE: Non-responsive. LOCATION: Bilateral chest FINDINGS: Single portable frontal view of the chest shows a right thoracostomy tube and right subclavian centra l line. Tip of the endotracheal tube 1 cm from the chung. Nasogastric tube coiled in the stomach. No pneumothorax. Bibasilar consolidations left more so than right. These are unchanged. Heart is normal in size. Orthopedic hardware. CONCLUSION: Unchanged bibasilar infiltrates. Giacomo Ervin Jr., MD on July 10, 2017 at 6:03 Board Certified Radiologist. This report was verified electronically.
[2017-07-10] MEDS: PROPRANOLOL HCL 10 MG TAB PO SCH ×3 (06:10→22:58)
[2017-07-10] MEDS: CHLORHEXIDINE 0.12% (ORAL KIT) 15 ML CUP MT SCH ×2 (08:00→20:00)
[2017-07-10] MEDS: LACTULOSE SYRUP 20 GM/30 ML CUP PO SCH (08:55)
[2017-07-10] MEDS: MAGNESIUM HYDROXIDE SUSP 30 ML CUP PO SCH ×2 (08:55→22:57)
[2017-07-10] MEDS: levETIRAcetam INJ 500 MG in SODIUM CHLORIDE 0.9% INJ 100 ML IV SCH ×2 (08:55→22:57)
[2017-07-10] MEDS: INSULIN DETEMIR 100 UNITS/ML VIAL SQ SCH ×2 (08:56→22:58)
[2017-07-10] MEDS: DOCUSATE SODIUM 100 MG CAP PO SCH ×2 (09:00→19:44)
[2017-07-10] MEDS: SODIUM CHLORIDE FLUSH BID IV FLUSH SCH ×2 (09:00→22:57)
[2017-07-10] MEDS: hydrALAZINE HCL 20 MG/ML VIAL IV PRN (09:33)
[2017-07-10] MEDS: PANTOPRAZOLE SODIUM 40 MG VIAL IVP SCH (09:33)
[2017-07-10] MEDS ORDERED: BISACODYL 10 MG SUPP RECTAL ONE (10:00)
[2017-07-10] MEDS ORDERED: FUROSEMIDE 40 MG/4 ML VIAL IV PUSH ONE (10:15)
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
[2017-07-10] MEDS: ENOXAPARIN SODIUM 40 MG/0.4 ML SYRINGE SQ SCH (13:00)
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
[2017-07-10] MEDS ORDERED: IOHEXOL 350 MG/ML 10 ML VIAL (for RAD DIAG) IVCONTRAST ONE (17:05)
--- NOTE | 2017-07-10 17:26 | RADRPT ---
EXAM DATE/TIME: 07/10/2017 16:39 [facility] COMPARISON: CT THORAX W CONTRAST, July 05, 2017, 9:52. INDICATIONS : Respiratory distress. IV CONTRAST: 65 cc Omnipaque 350 (iohexol) IV RADIATION DOSE: 21.66 CTDIvol (mGy) ; Patient body habitus MEDICAL HISTORY : Hypertension. diabetes SURGICAL HISTORY : None. ENCOUNTER: Initial ACUITY: 1 day PAIN SCALE: Non-responsive LOCATION: Bilateral chest TECHNIQUE: Volumetric scanning of the chest was performed using a pulmonary embolism protocol MIP images were re constructed. Using automated exposure control and adjustment of the mA and/or kV according to patien t size, radiation dose was kept as low as reasonably achievable to obtain optimal diagnostic quality images. DICOM format image data is available electronically for review and comparison. Follow-up recommendations for detected pulmonary nodules are based at a minimum on nodule size and pa tient risk factors according to Fleischner Society Guidelines. FINDINGS: Multiple fractures are again seen. Chest tube is present on the right side. There is a small ant erior pneumothorax on the right. Extensive bibasilar consolidation is present with scattered parenchy mal infiltrates in both lungs. There is a tiny left pleural effusion. There is no evidence for PE for technique. There is an approximate 3.7 cm soft tissue density within the mediastinum in the substern al location probably a hematoma slightly larger since the prior study at which time it measured 3.4 c m. There are postsurgical changes in lower thoracic spine otherwise no change. CONCLUSION: 1. Substernal hematoma is slightly larger. 2. Small left pleural effusion and right pneumothorax. 3. Bibasilar consolidation and bilateral infiltrates. Kaylene Sharp MD on July 10, 2017 at 17:19 Board Certified Radiologist. This report was verified electronically.
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
[2017-07-11] VITALS (17 sets, daily range): BP systolic 103–151; BP diastolic 46–70; PULSE 69–106; RESP 14–18; TEMP 98.8–99.6; O2SAT 90–100
[2017-07-11] MEDS: PROPOFOL 1000 MG/100 ML INJ 100 ML IV PRN ×3 (03:16→17:28)
[2017-07-11] MEDS: RESP: ALBUTEROL 2.5 MG/IPRATROPIUM 0.5 MG NEB (SCH) NEB ×4 (03:31→20:55)
[2017-07-11 04:13] LABS: AUTOMATED NEUTROPHIL # 7.4 TH/MM3 (1.8-7.7); BASOPHIL # 0.1 TH/MM3 (0-0.2); BASOPHIL % 0.7 % (0.0-2.0); EOSINOPHIL # 0.6 TH/MM3 (0-0.4); EOSINOPHIL % 5.6 % (0.0-4.0); HEMATOCRIT 25.5 % (39.0-51.0); HEMOGLOBIN 8.6 GM/DL (13.0-17.0); LYMPH % 15.8 % (9.0-44.0); LYMPHOCYTE # 1.8 TH/MM3 (1.0-4.8); MEAN CELL VOLUME 92.5 FL (80.0-100.0); MEAN CORPUSCULAR HEMOGLOBIN 31.3 PG (27.0-34.0); MEAN CORPUSCULAR HGB CONC 33.9 % (32.0-36.0); MEAN PLATELET VOLUME 9.5 FL (7.0-11.0); MONO % 12.2 % (0.0-8.0); MONOCYTE # 1.4 TH/MM3 (0-0.9); NEUT % 65.7 % (16.0-70.0); PLATELET COUNT 202 TH/MM3 (150-450); RED BLOOD COUNT 2.75 MIL/MM3 (4.50-5.90); RED CELL DISTRIBUTION WIDTH 14.6 % (11.6-17.2); WHITE BLOOD COUNT 11.3 TH/MM3 (4.0-11.0)
[2017-07-11 04:57] LABS: ALBUMIN 1.8 GM/DL (3.4-5.0); ALKALINE PHOSPHATASE 74 U/L (45-117); ALT (GPT) 41 U/L (12-78); AST (GOT) 28 U/L (15-37); BLOOD UREA NITROGEN 41 MG/DL (7-18); CALCIUM 8.4 MG/DL (8.5-10.1); CHLORIDE 113 MEQ/L (98-107); CREATININE 1.47 MG/DL (0.60-1.30); GLOMERULAR FILTRATION RATE 49 ML/MIN (>89); GLUCOSE,RANDOM 238 MG/DL (74-106); SODIUM (NA) 149 MEQ/L (136-145); TOTAL BILIRUBIN ADULT 0.4 MG/DL (0.2-1.0)
[2017-07-11] MEDS: MEDIUM DOSE INSULIN NOVOLOG SUPPLEMENTAL SCALE SQ SCH ×4 (05:19→18:00)
--- NOTE | 2017-07-11 05:28 | RADRPT ---
EXAM DATE/TIME: 07/11/2017 04:58 [facility] COMPARISON: CHEST SINGLE AP, July 10, 2017, 5:11. INDICATIONS : Respiratory distress. MEDICAL HISTORY : Hypertension. Diabetes. SURGICAL HISTORY : None. ENCOUNTER: Subsequent ACUITY: 1 week PAIN SCORE: Non-responsive. LOCATION: Bilateral chest FINDINGS: 2 portable frontal views of the chest show bilateral pulmonary infiltrates more pronounced on the lef t. These have progressed in the prior study. Heart is normal in size. Right thoracostomy tube without pneumothorax. Right subclavian central line. Tip of the endotracheal tube 2 cm from the chung. Naso gastric tube coiled in the body the stomach. Heart is normal in size. Orthopedic hardware involving t he thoracic spine. CONCLUSION: Worsening bilateral pulmonary infiltrates. Giacomo Ervin Jr., MD on July 11, 2017 at 5:26 Board Certified Radiologist. This report was verified electronically.
[2017-07-11] MEDS: PROPRANOLOL HCL 10 MG TAB PO SCH ×3 (06:00→20:53)
[2017-07-11] MEDS ORDERED: BISACODYL 10 MG SUPP RECTAL ONE (07:15)
[2017-07-11] MEDS ORDERED: BISACODYL 10 MG SUPP RECTAL PRN (07:15)
[2017-07-11] MEDS: INSULIN DETEMIR 100 UNITS/ML VIAL SQ SCH ×2 (07:52→21:00)
[2017-07-11] MEDS: LACTULOSE SYRUP 20 GM/30 ML CUP PO SCH (07:52)
[2017-07-11] MEDS: LANSOPRAZOLE SOLUTAB 30 MG TAB NG SCH (07:52)
[2017-07-11] MEDS: MAGNESIUM HYDROXIDE SUSP 30 ML CUP PO SCH ×2 (07:52→20:53)
[2017-07-11] MEDS: CHLORHEXIDINE 0.12% (ORAL KIT) 15 ML CUP MT SCH ×2 (07:53→20:00)
[2017-07-11] MEDS: fentaNYL DRIP 250 ML IV PRN ×2 (07:53→22:38)
[2017-07-11] MEDS: SODIUM CHLORIDE FLUSH BID IV FLUSH SCH ×2 (07:53→20:53)
[2017-07-11] MEDS: levETIRAcetam INJ 500 MG in SODIUM CHLORIDE 0.9% INJ 100 ML IV SCH ×2 (07:53→20:48)
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
--- NOTE | 2017-07-11 12:57 | RADRPT ---
EXAM DATE/TIME: 07/11/2017 11:44 [facility] COMPARISON: MRI BRAIN W/O CONTRAST, July 05, 2017, 16:14. INDICATIONS : Hemorrhage. Trauma. MEDICAL HISTORY : None. SURGICAL HISTORY : Fusion, thoracic. ENCOUNTER: Subsequent ACUITY: 4-6 days PAIN SCORE: Nonresponsive. LOCATION: head. TECHNIQUE: Multiplanar, multisequence MRI of the brain was performed without contrast. FINDINGS: Again seen are changes of traumatic brain injury with a persistent small amount of subarachnoid hemor rhage. There is also persistent intraventricular hemorrhage and trace residual subdural hemorrhage po steriorly. Bifrontal ventriculostomy present. Ventricular size is stable. No recent infarct. No mass effect or shift. CONCLUSION: 1. Relatively stable posttraumatic changes in the brain as above compared with July 05. Right fro ntal ventriculostomy. No recent infarct. Billy Aponte MD on July 11, 2017 at 12:51 Board Certified Radiologist. This report was verified electronically.
--- NOTE | 2017-07-11 12:59 | RADRPT ---
EXAM DATE/TIME: 07/11/2017 11:44 [facility] COMPARISON: CT CERVICAL SPINE W/O CONTRAST, July 05, 2017, 9:35. INDICATIONS : Quadriparesis. Post op. MEDICAL HISTORY : None. SURGICAL HISTORY : Fusion, thoracic. ENCOUNTER: Subsequent ACUITY: 4-6 days PAIN SCORE: Nonresponsive. LOCATION: neck. TECHNIQUE: Multiplanar, multisequence MRI examination of the cervical spine was performed. FINDINGS: The marrow signal appears intact, and the spinal cord appears intact with technique. C2-C3: No appreciable compromise to the thecal sac, exiting nerve roots are seen. The neural forami na are patent bilaterally. No appreciable thecal sac stenosis is seen. C3-C4: No appreciable compromise to the thecal sac, exiting nerve roots are seen. The neural forami na are patent bilaterally. No appreciable thecal sac stenosis is seen. C4-C5: There is slight neural foramina compromise on the right due to asymmetrical bulging disc and hypertrophic changes. C5-C6: No appreciable compromise to the thecal sac, exiting nerve roots are seen. The neural foramin a are patent bilaterally. No appreciable thecal sac stenosis is seen. C6-C7: No appreciable compromise to the thecal sac, exiting nerve roots are seen. The neural foramin a are patent bilaterally. No appreciable thecal sac stenosis is seen. C7-T1: No appreciable compromise to the thecal sac, exiting nerve roots are seen. The neural foramin a are patent bilaterally. No appreciable thecal sac stenosis is seen. CONCLUSION: Slight neural foramina compromise right C4-C5 and spinal cord appears intact without any significant thecal sac stenosis. Kaylene Sharp MD on July 11, 2017 at 12:51 Board Certified Radiologist. This report was verified electronically.
[2017-07-11] MEDS: ENOXAPARIN SODIUM 40 MG/0.4 ML SYRINGE SQ SCH (13:00)
--- NOTE | 2017-07-11 13:05 | RADRPT ---
EXAM DATE/TIME: 07/11/2017 11:44 [facility] COMPARISON: MRI THORACIC SPINE W/O CONTRAST, July 05, 2017, 16:14. CT THORACIC SPINE W CONTRAST, June, 9:52. CT THORAX W CONTRAST, July 05, 2017, 9:52. INDICATIONS : Myelopathy. Post op. MEDICAL HISTORY : None. SURGICAL HISTORY : Fusion, thoracic. ENCOUNTER: Subsequent ACUITY: 4-6 days PAIN SCORE: Nonresponsive. LOCATION: spine. TECHNIQUE: Multiplanar multisequence MRI of the thoracic spine was performed. FINDINGS: The marrow signal appears intact. No significant compression deformities are seen. No significant c ord compression is identified. The spinal cord appears intact. Surgical screws traverse the bodies of T7, T8, T9, T10 with posterior stabilization hardware in place. Right chest tube is present with p arenchymal consolidation in the right lung not adequately characterized. Previously seen fracture of T9 vertebrae is difficult to visualize due to magnetic susceptibility artifact. T1-T2: No appreciable compromise to the thecal sac, spinal cord, or the exiting nerve roots are seen. The neural foramina are grossly patent bilaterally. T2-T3: No appreciable compromise to the thecal sac, spinal cord, or the exiting nerve roots are seen. The neural foramina are grossly patent bilaterally. T3-T4: No appreciable compromise to the thecal sac, spinal cord, or the exiting nerve roots are seen. The neural foramina are grossly patent bilaterally. T4-T5: No appreciable compromise to the thecal sac, spinal cord, or the exiting nerve roots are seen. The neural foramina are grossly patent bilaterally. T5-T6: No appreciable compromise to the thecal sac, spinal cord, or the exiting nerve roots are seen. The neural foramina are grossly patent bilaterally. T6-T7: No appreciable compromise to the thecal sac, spinal cord, or the exiting nerve roots are seen. The neural foramina are grossly patent bilaterally. T7-T8: There is effacement of the anterior CSF space due to chronic hypertrophic changes with co mpromise to the anterior CSF space, however overall no significant thecal sac stenosis is seen. T8-T9: There is significant thecal sac stenosis due to anterior extradural impression at this lev el from mixed signal intensity material probably hemorrhage causing cord compression. T9-T10: No appreciable compromise to the thecal sac, spinal cord, or the exiting nerve roots are see n. The neural foramina are grossly patent bilaterally. T10-T11: No appreciable compromise to the thecal sac, spinal cord, or the exiting nerve roots are se en. The neural foramina are grossly patent bilaterally. T11-T12: No appreciable compromise to the thecal sac, spinal cord, or the exiting nerve roots are se en. The neural foramina are grossly patent bilaterally. T12-L1: No appreciable compromise to the thecal sac, spinal cord, or the exiting nerve roots are s een. The neural foramina are grossly patent bilaterally. CONCLUSION: Postsurgical changes and significant stenosis at T8-T9 causing cord compression. Kaylene Sharp MD on July 11, 2017 at 12:57 Board Certified Radiologist. This report was verified electronically.
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
[2017-07-11] MEDS: CEFEPIME INJ 2,000 MG in SODIUM CHLORIDE 0.9% INJ 100 ML IV SCH ×2 (16:00→22:37)
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
[2017-07-12] VITALS (17 sets, daily range): BP systolic 127–176; BP diastolic 54–72; PULSE 72–100; RESP 14–19; TEMP 98.5–100.9; O2SAT 92–100
[2017-07-12] MEDS: RESP: ALBUTEROL 2.5 MG/IPRATROPIUM 0.5 MG NEB (SCH) NEB ×4 (03:14→19:39)
[2017-07-12] MEDS: CHLORHEXIDINE GLUCONATE 2 % 1 PACK (2 CLOTHS) TOP SCH (04:00)
[2017-07-12 05:37] LABS: HEMOGLOBIN 8.1 GM/DL (13.0-17.0); MEAN CELL VOLUME 93.8 FL (80.0-100.0); MEAN CORPUSCULAR HEMOGLOBIN 31.6 PG (27.0-34.0); MEAN CORPUSCULAR HGB CONC 33.7 % (32.0-36.0); MEAN PLATELET VOLUME 9.6 FL (7.0-11.0); PLATELET COUNT 216 TH/MM3 (150-450); RED BLOOD COUNT 2.56 MIL/MM3 (4.50-5.90); RED CELL DISTRIBUTION WIDTH 14.5 % (11.6-17.2); WHITE BLOOD COUNT 10.3 TH/MM3 (4.0-11.0)
[2017-07-12 05:56] LABS: ALBUMIN 1.7 GM/DL (3.4-5.0); ALT (GPT) 51 U/L (12-78); AST (GOT) 51 U/L (15-37); BLOOD UREA NITROGEN 46 MG/DL (7-18); CALCIUM 8.5 MG/DL (8.5-10.1); CHLORIDE 116 MEQ/L (98-107); CREATININE 1.39 MG/DL (0.60-1.30); GLOMERULAR FILTRATION RATE 53 ML/MIN (>89); GLUCOSE,RANDOM 234 MG/DL (74-106); SODIUM (NA) 152 MEQ/L (136-145)
[2017-07-12 05:59] LABS: ALKALINE PHOSPHATASE 97 U/L (45-117); TOTAL BILIRUBIN ADULT 0.4 MG/DL (0.2-1.0)
[2017-07-12] MEDS: PROPRANOLOL HCL 10 MG TAB PO SCH ×3 (06:00→21:16)
[2017-07-12] MEDS: MEDIUM DOSE INSULIN NOVOLOG SUPPLEMENTAL SCALE SQ SCH ×4 (06:00→18:00)
--- NOTE | 2017-07-12 06:02 | RADRPT ---
EXAM DATE/TIME: 07/12/2017 05:30 [facility] COMPARISON: CHEST SINGLE AP, July 11, 2017, 4:58. INDICATIONS : Shortness of breath. MEDICAL HISTORY : Hypertension. Diabetes SURGICAL HISTORY : None. ENCOUNTER: Initial ACUITY: 1 week PAIN SCORE: Non-responsive. LOCATION: Bilateral chest FINDINGS: Single portable frontal view the chest shows the tip of the endotracheal tube 2 cm proximal to the ca felicia. Right subclavian central line and nasogastric tube noted. There has been improvement in the dax ateral pulmonary infiltrates. Tiny left effusion suspected. Heart is at the upper limits of normal in terms of size. Orthopedic hardware noted. CONCLUSION: Improvement in the bilateral pulmonary infiltrates. Giacomo Ervin Jr., MD on July 12, 2017 at 6:00 Board Certified Radiologist. This report was verified electronically.
[2017-07-12 07:06] LABS: BANDS 4 % (0-6); LYMPHOCYTES 14 % (9-44); MONOCYTES 15 % (0-8); MYELOCYTES 1 % (0-0); NEUTROPHIL # MANUAL DIFF 6.5 TH/MM3 (1.8-7.7); POLYS (SEG NEUTROPHILS) 58 % (16-70)
[2017-07-12] MEDS: SODIUM CHLOR 0.45% 1000 ML INJ 1,000 ML IV SCH ×2 (07:41→20:20)
[2017-07-12] MEDS: CEFEPIME INJ 2,000 MG in SODIUM CHLORIDE 0.9% INJ 100 ML IV SCH ×2 (07:41→16:00)
[2017-07-12] MEDS: CHLORHEXIDINE 0.12% (ORAL KIT) 15 ML CUP MT SCH ×2 (07:42→20:00)
[2017-07-12] MEDS: levETIRAcetam INJ 500 MG in SODIUM CHLORIDE 0.9% INJ 100 ML IV SCH ×2 (07:42→21:00)
[2017-07-12] MEDS: LACTULOSE SYRUP 20 GM/30 ML CUP PO SCH (07:42)
[2017-07-12] MEDS: SODIUM CHLORIDE FLUSH BID IV FLUSH SCH ×2 (07:42→21:00)
[2017-07-12] MEDS: MAGNESIUM HYDROXIDE SUSP 30 ML CUP PO SCH ×2 (07:42→21:00)
[2017-07-12] MEDS: INSULIN DETEMIR 100 UNITS/ML VIAL SQ SCH ×2 (07:42→21:00)
[2017-07-12] MEDS: LANSOPRAZOLE SOLUTAB 30 MG TAB NG SCH (07:42)
[2017-07-12] MEDS: PROPOFOL 1000 MG/100 ML INJ 100 ML IV PRN ×2 (07:45→13:30)
[2017-07-12] MEDS: fentaNYL DRIP 250 ML IV PRN (08:15)
[2017-07-12] MEDS ORDERED: THROMBIN (TOPICAL) 5,000 UNIT VIAL ONE (11:19)
[2017-07-12] MEDS ORDERED: GELFOAM SIZE 100 ONE (11:19)
[2017-07-12] MEDS ORDERED: LIDOCAINE 1%/EPINEPHrine 1:100,000 SOLN 20 ML VIAL ONE (11:20)
[2017-07-12] MEDS ORDERED: GENTAMICIN SULFATE 80 MG/2 ML VIAL ONE (11:20)
[2017-07-12] MEDS ORDERED: PHENYLEPHRINE HCL 10 MG/ML VIAL IV ONE (12:00)
[2017-07-12] MEDS: FREE WATER G-TUBE SCH ×2 (12:00→18:00)
[2017-07-12] MEDS ORDERED: ROCURONIUM INJ 50 MG/5 ML SYRINGE IV PUSH ONE (12:00)
[2017-07-12] MEDS ORDERED: PHENYLEPH/NS 1000 MCG/10 ML SYR IV ONE (12:00)
[2017-07-12] MEDS: ENOXAPARIN SODIUM 40 MG/0.4 ML SYRINGE SQ SCH (12:15)
[2017-07-12] MEDS: ENALAPRILAT 1.25 MG/ML VIAL IV PUSH PRN (13:07)
[2017-07-12] MEDS: hydrALAZINE HCL 20 MG/ML VIAL IV PRN ×2 (13:13→21:16)
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
[2017-07-12] MEDS ORDERED: ceFAZolin 2 GM PREMIX 50 ML ONE (16:16)
[2017-07-12] MEDS ORDERED: fentaNYL CITRATE 250 MCG/5 ML AMP ONE (16:17)
--- NOTE | 2017-07-12 21:27 | PD.OP ---
Operative Report Date of Surgery: Jul 12, 2017 Preoperative Diagnosis: (1) Fracture of thoracic spine with cord lesion T8-9 fracture subluxation with spinal cord contusion. Status post T7-10 posterior fusion with instrumentation, T8-9 decompression with semi- hemilaminectomy, discectomy, interbody fusion. Postoperative MRI with persistent residual spinal cord compression. Possible postoperative epidural hematoma versus residual disc material, graft material dislodgment with cord compression. Postoperative Diagnosis: (1) Fracture of thoracic spine with cord lesion T8-9 fracture subluxation with spinal cord contusion. Status post T7-10 posterior fusion with instrumentation, T8-9 decompression with semi- hemilaminectomy, discectomy, interbody fusion. 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 Postoperative epidural hematoma. Procedure: 1. Revision T8-T9 decompressive semi-laminectomy 2. Evacuation of postoperative epidural hematoma 3. Right T8-9 discectomy, resection sequestered disc fragments 4. Revision-supplementation right T8-9 interbody fusion with lamina autograft bone Anesthesia: General Surgeon: Martin Akins Car Builder(s): Xochitl Guillaume Operation and Findings: Findings: Moderate epidural hematoma surrounding T8-9 level thecal sac. Edematous torn posterior longitudinal ligament and ligamentum flavum with some thecal sac compression. Small fragments of herniated disc at the right anterolateral canal with mild thecal sac impingement. Procedure in detail: The patient was brought into the operating room already intubated and general endotracheal anesthesia induced without difficulty. JAIME hose and sequential compression devices were placed. The Mabry catheter was in place Lines were established by anesthesia. The patient was positioned on the [facility] Kyrie table with the side bolsters and all extremities appropriately padded. Appropriate time-out procedure was performed with all personnel present and in agreement. 1% Xylocaine with epinephrine was used for local infiltration over the incision site which was made at the previous midthoracic incision. Previously placed sutures were removed. The previous operative site was reopened and the cerebellar retractors placed. There was noted to be moderate amount of epidural hematoma surrounding the thecal sac at the T8-9 level. This was carefully elevated away from the thecal sac with the thin ligament dissector. There was noted to be some thickening and edema and retraction of the ligament of flavum ventral to the residual T8-T9 lamina. This was freed up with the thin ligament dissector and removed with the 2 and 3 mm Kerrison rongeur along with a further portion of the ventral T8 and T9 lamina in order to better decompress the thecal sac. The thecal sac was carefully inspected, there was a complete tear through the dura at the right lateral T9 level which was better visualized after additional removal of T9 lamina and ligamentum flavum. Small amount of CSF leakage was encountered in this region. Due to the extensive nature of the dural tear from the previous trauma it was not felt that direct repair of the dura in this region could be accomplished. An additional portion of the right T8-9 facet was removed to better access the right lateral recess. In this area as some fragments of residual herniated disc material were encountered lateral and ventral to the right lateral thecal sac. These appear to be causing only some mild impingement. They were carefully pushed out away from the thecal sac and spinal cord and removed with the pituitary biopsy forceps which were also used to further remove disc material to the right of the previously placed interbody cage. The vertebral endplate at the right T8-9 level was further scraped down to cancellus bone with the reverse curette and any debris removed with the biopsy forceps. The retained lamina autograft from the new T8-T9 laminectomy was placed at the right T8-9 interspace and packed over the anterior interspace with the impactor against the previously placed interbody cage which appeared to be firmly in place. There was some torn edematous posterior longitudinal ligament ventral to the thecal sac which was carefully freed up and removed with the 11 blade knife and the pituitary biopsy forceps. A careful inspection was made surrounding the entire thecal sac at the T8-9 level. There did not appear to be any significant residual spinal cord compression. As noted in the previous operative report, the spinal cord appeared very contused and edematous. The exiting nerve roots were followed to the level of the medial pedicle to ensure that they were well decompressed. Bleeding was carefully controlled with the bipolar forceps. A 7 mm flat fluted drain was left in place at the operative site and brought out through an incision in the mid lumbar region and secured to the skin with nylon suture and attached to a bulb suction. The closure was performed with 0 Vicryl interrupted for the deep and superficial fascia, with 3-0 Vicryl interrupted subcutaneous closure, and 4-0 Vicryl running subcuticular closure. A dressing of sterile Mastisol, Steri- Strips, and Primapore was placed. The patient was taken to recovery room in stable condition. All counts were correct at the end of the case. Estimated blood loss was 50 cc. No specimen was sent to pathology Martin Akins MD Jul 12, 2017 21:27
[2017-07-13] VITALS (17 sets, daily range): BP systolic 143–176; BP diastolic 62–87; PULSE 66–100; RESP 15–18; TEMP 98.9–100; O2SAT 93–99
[2017-07-13] MEDS: ENALAPRILAT 1.25 MG/ML VIAL IV PUSH PRN (01:20)
[2017-07-13] MEDS: PROPOFOL 1000 MG/100 ML INJ 100 ML IV PRN ×5 (01:46→19:58)
[2017-07-13] MEDS: fentaNYL DRIP 250 ML IV PRN ×2 (02:24→14:47)
[2017-07-13] MEDS: hydrALAZINE HCL 20 MG/ML VIAL IV PRN ×2 (02:59→05:15)
[2017-07-13] MEDS: CHLORHEXIDINE GLUCONATE 2 % 1 PACK (2 CLOTHS) TOP SCH (04:00)
[2017-07-13] MEDS: RESP: ALBUTEROL 2.5 MG/IPRATROPIUM 0.5 MG NEB (SCH) NEB ×3 (04:41→15:52)
[2017-07-13] MEDS: PROPRANOLOL HCL 10 MG TAB PO SCH ×3 (05:15→21:33)
[2017-07-13] MEDS: FREE WATER G-TUBE SCH ×5 (05:58→23:08)
[2017-07-13] MEDS: MEDIUM DOSE INSULIN NOVOLOG SUPPLEMENTAL SCALE SQ SCH ×5 (06:00→23:19)
[2017-07-13 06:23] LABS: AUTOMATED NEUTROPHIL # 7.6 TH/MM3 (1.8-7.7); BASOPHIL # 0.1 TH/MM3 (0-0.2); BASOPHIL % 0.6 % (0.0-2.0); EOSINOPHIL # 0.6 TH/MM3 (0-0.4); EOSINOPHIL % 5.5 % (0.0-4.0); HEMATOCRIT 23.2 % (39.0-51.0); HEMOGLOBIN 8.1 GM/DL (13.0-17.0); LYMPH % 14.9 % (9.0-44.0); LYMPHOCYTE # 1.7 TH/MM3 (1.0-4.8); MEAN CELL VOLUME 93.4 FL (80.0-100.0); MEAN CORPUSCULAR HEMOGLOBIN 32.4 PG (27.0-34.0); MEAN CORPUSCULAR HGB CONC 34.7 % (32.0-36.0); MEAN PLATELET VOLUME 9.6 FL (7.0-11.0); MONO % 11.6 % (0.0-8.0); MONOCYTE # 1.3 TH/MM3 (0-0.9); NEUT % 67.4 % (16.0-70.0); PLATELET COUNT 255 TH/MM3 (150-450); RED BLOOD COUNT 2.49 MIL/MM3 (4.50-5.90); RED CELL DISTRIBUTION WIDTH 14.2 % (11.6-17.2); WHITE BLOOD COUNT 11.3 TH/MM3 (4.0-11.0)
[2017-07-13 06:46] LABS: BICARBONATE 28.5 MEQ/L (21.0-32.0); CALCIUM 8.4 MG/DL (8.5-10.1); CREATININE 1.13 MG/DL (0.60-1.30)
[2017-07-13] MEDS: CHLORHEXIDINE 0.12% (ORAL KIT) 15 ML CUP MT SCH ×2 (08:00→21:34)
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
[2017-07-13] MEDS: INSULIN DETEMIR 100 UNITS/ML VIAL SQ SCH ×2 (09:00→21:34)
[2017-07-13] MEDS: LACTULOSE SYRUP 20 GM/30 ML CUP PO SCH (09:00)
[2017-07-13] MEDS: SODIUM CHLORIDE FLUSH BID IV FLUSH SCH ×2 (09:00→21:34)
[2017-07-13] MEDS: LANSOPRAZOLE SOLUTAB 30 MG TAB NG SCH (09:00)
[2017-07-13] MEDS: MAGNESIUM HYDROXIDE SUSP 30 ML CUP PO SCH ×2 (09:00→21:33)
[2017-07-13] MEDS ORDERED: AMANTADINE HCL SOLN 100 MG/10 ML UDC PO ONE (09:45)
[2017-07-13] MEDS: CEFEPIME INJ 2,000 MG in SODIUM CHLORIDE 0.9% INJ 100 ML IV SCH ×5 (10:12→23:19)
[2017-07-13] MEDS: METOPROLOL TARTRATE 100 MG TAB PO SCH ×2 (10:38→21:33)
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
[2017-07-13] MEDS ORDERED: PROPOFOL 200 MG/20 ML AMP IV ONE (12:00)
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
[2017-07-13] MEDS ORDERED: AMANTADINE HCL SOLN 100 MG/10 ML UDC PO SCH (14:00)
[2017-07-14] VITALS (19 sets, daily range): BP systolic 124–166; BP diastolic 68–79; PULSE 64–88; RESP 16–25; TEMP 99.4–101; O2SAT 91–98
[2017-07-14] MEDS: PROPOFOL 1000 MG/100 ML INJ 100 ML IV PRN ×2 (00:30→05:00)
[2017-07-14] MEDS: CHLORHEXIDINE GLUCONATE 2 % 1 PACK (2 CLOTHS) TOP SCH (02:42)
[2017-07-14] MEDS: hydrALAZINE HCL 20 MG/ML VIAL IV PRN (03:12)
[2017-07-14 03:50] LABS: AUTOMATED NEUTROPHIL # 8.2 TH/MM3 (1.8-7.7); BASOPHIL # 0.1 TH/MM3 (0-0.2); BASOPHIL % 0.6 % (0.0-2.0); EOSINOPHIL # 0.7 TH/MM3 (0-0.4); EOSINOPHIL % 6.1 % (0.0-4.0); HEMATOCRIT 23.9 % (39.0-51.0); HEMOGLOBIN 8.4 GM/DL (13.0-17.0); LYMPH % 15.6 % (9.0-44.0); LYMPHOCYTE # 1.9 TH/MM3 (1.0-4.8); MEAN CELL VOLUME 92.6 FL (80.0-100.0); MEAN CORPUSCULAR HEMOGLOBIN 32.5 PG (27.0-34.0); MEAN CORPUSCULAR HGB CONC 35.1 % (32.0-36.0); MEAN PLATELET VOLUME 9.5 FL (7.0-11.0); MONO % 10.1 % (0.0-8.0); MONOCYTE # 1.2 TH/MM3 (0-0.9); NEUT % 67.6 % (16.0-70.0); PLATELET COUNT 286 TH/MM3 (150-450); RED BLOOD COUNT 2.58 MIL/MM3 (4.50-5.90); WHITE BLOOD COUNT 12.2 TH/MM3 (4.0-11.0)
[2017-07-14 03:58] LABS: CALCIUM 8.4 MG/DL (8.5-10.1); CREATININE 1.06 MG/DL (0.60-1.30)
[2017-07-14] MEDS: fentaNYL DRIP 250 ML IV PRN (04:50)
[2017-07-14] MEDS: PROPRANOLOL HCL 10 MG TAB PO SCH ×3 (05:50→22:06)
[2017-07-14] MEDS: FREE WATER G-TUBE SCH ×3 (05:50→18:00)
[2017-07-14] MEDS: MEDIUM DOSE INSULIN NOVOLOG SUPPLEMENTAL SCALE SQ SCH ×2 (06:47→12:00)
[2017-07-14] MEDS: CHLORHEXIDINE 0.12% (ORAL KIT) 15 ML CUP MT SCH ×2 (08:00→20:00)
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
[2017-07-14] MEDS: SODIUM CHLORIDE FLUSH BID IV FLUSH SCH ×2 (09:00→21:00)
[2017-07-14] MEDS: INSULIN DETEMIR 100 UNITS/ML VIAL SQ SCH ×2 (09:00→20:36)
[2017-07-14] MEDS ORDERED: AMANTADINE HCL SOLN 100 MG/10 ML UDC PO ONE (10:15)
[2017-07-14] MEDS ORDERED: SCOPOLAMINE 1.5 MG PATCH T-DERMAL ONE (11:00)
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
[2017-07-14] MEDS: LACTULOSE SYRUP 20 GM/30 ML CUP PO SCH (11:35)
[2017-07-14] MEDS: MAGNESIUM HYDROXIDE SUSP 30 ML CUP PO SCH ×2 (11:35→20:37)
[2017-07-14] MEDS: LANSOPRAZOLE SOLUTAB 30 MG TAB NG SCH (11:36)
[2017-07-14] MEDS: METOPROLOL TARTRATE 100 MG TAB PO SCH ×2 (11:37→20:37)
[2017-07-14] MEDS: CEFEPIME INJ 2,000 MG in SODIUM CHLORIDE 0.9% INJ 100 ML IV SCH ×2 (11:37→16:00)
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
[2017-07-14] MEDS: AMANTADINE HCL SOLN 100 MG/10 ML UDC PO SCH (14:39)
[2017-07-14] MEDS: ENOXAPARIN SODIUM 40 MG/0.4 ML SYRINGE SQ SCH (14:39)
[2017-07-15] VITALS (16 sets, daily range): BP systolic 116–162; BP diastolic 64–124; PULSE 70–94; RESP 17–24; TEMP 98.6–100; O2SAT 93–98
[2017-07-15] MEDS: CEFEPIME INJ 2,000 MG in SODIUM CHLORIDE 0.9% INJ 100 ML IV SCH ×3 (00:16→16:00)
[2017-07-15] MEDS: MEDIUM DOSE INSULIN NOVOLOG SUPPLEMENTAL SCALE SQ SCH ×5 (00:19→17:37)
[2017-07-15] MEDS: CHLORHEXIDINE GLUCONATE 2 % 1 PACK (2 CLOTHS) TOP SCH (04:00)
[2017-07-15] MEDS: FREE WATER G-TUBE SCH ×4 (05:41→17:37)
[2017-07-15] MEDS: PROPRANOLOL HCL 10 MG TAB PO SCH ×3 (05:41→22:20)
[2017-07-15 05:50] LABS: AUTOMATED NEUTROPHIL # 8.2 TH/MM3 (1.8-7.7); BASOPHIL # 0.1 TH/MM3 (0-0.2); BASOPHIL % 0.9 % (0.0-2.0); EOSINOPHIL # 0.5 TH/MM3 (0-0.4); EOSINOPHIL % 4.5 % (0.0-4.0); HEMATOCRIT 29.3 % (39.0-51.0); HEMOGLOBIN 9.7 GM/DL (13.0-17.0); LYMPH % 13.1 % (9.0-44.0); LYMPHOCYTE # 1.5 TH/MM3 (1.0-4.8); MEAN CELL VOLUME 93.3 FL (80.0-100.0); MEAN CORPUSCULAR HGB CONC 33.2 % (32.0-36.0); MEAN PLATELET VOLUME 9.1 FL (7.0-11.0); MONO % 8.7 % (0.0-8.0); NEUT % 72.8 % (16.0-70.0); PLATELET COUNT 326 TH/MM3 (150-450); RED BLOOD COUNT 3.13 MIL/MM3 (4.50-5.90); RED CELL DISTRIBUTION WIDTH 14.1 % (11.6-17.2); WHITE BLOOD COUNT 11.3 TH/MM3 (4.0-11.0)
[2017-07-15 06:20] LABS: BICARBONATE 26.5 MEQ/L (21.0-32.0); CALCIUM 8.5 MG/DL (8.5-10.1); CREATININE 1.2 MG/DL (0.60-1.30)
[2017-07-15] MEDS: AMANTADINE HCL SOLN 100 MG/10 ML UDC PO SCH ×2 (07:00→14:00)
[2017-07-15] MEDS: LACTULOSE SYRUP 20 GM/30 ML CUP PO SCH (07:48)
[2017-07-15] MEDS: CHLORHEXIDINE 0.12% (ORAL KIT) 15 ML CUP MT SCH ×2 (07:48→20:00)
[2017-07-15] MEDS: LANSOPRAZOLE SOLUTAB 30 MG TAB NG SCH (07:48)
[2017-07-15] MEDS: MAGNESIUM HYDROXIDE SUSP 30 ML CUP PO SCH ×2 (07:48→21:00)
[2017-07-15] MEDS: SODIUM CHLORIDE FLUSH BID IV FLUSH SCH ×2 (07:48→21:00)
[2017-07-15] MEDS: INSULIN DETEMIR 100 UNITS/ML VIAL SQ SCH ×2 (07:48→21:08)
[2017-07-15] MEDS: METOPROLOL TARTRATE 100 MG TAB PO SCH ×2 (07:48→21:07)
[2017-07-15] MEDS ORDERED: HALOPERIDOL LACTATE 5 MG/ML AMP IV PRN (10:00)
--- NOTE | 2017-07-15 10:29 | RADRPT ---
EXAM DATE/TIME: 07/15/2017 10:04 [facility] COMPARISON: CHEST SINGLE AP, July 12, 2017, 5:30. INDICATIONS : Shortness of breath. MEDICAL HISTORY : Hypertension. Diabetes. SURGICAL HISTORY : Fusion, thoracic. ENCOUNTER: Subsequent ACUITY: 2 weeks PAIN SCORE: Non-responsive. LOCATION: Bilateral chest FINDINGS: Endotracheal tube has its tip 1 cm above the chung. This could be pulled back 2 cm for more optimal positioning. The heart remains enlarged. Mild perihilar and bibasilar infiltrates are noted. Hardware is again noted within the thoracic spine and is stable. Small left pleural effusion is noted. CONCLUSION: 1. Endotracheal tube has its tip 1 cm above the chung. This should be pulled back 2 cm for more opti mal positioning. 2. Stable cardiomegaly. 3. Mild perihilar and bibasilar infiltrates. Nacho Cordon MD on July 15, 2017 at 10:25 Board Certified Radiologist. This report was verified electronically.
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
[2017-07-15] MEDS: ENOXAPARIN SODIUM 40 MG/0.4 ML SYRINGE SQ SCH (12:01)
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
[2017-07-16] VITALS (19 sets, daily range): BP systolic 116–143; BP diastolic 63–84; PULSE 67–100; RESP 16–28; TEMP 98.9–100.3; O2SAT 94–100
[2017-07-16] MEDS: MEDIUM DOSE INSULIN NOVOLOG SUPPLEMENTAL SCALE SQ SCH ×4 (00:26→18:08)
[2017-07-16] MEDS: CEFEPIME INJ 2,000 MG in SODIUM CHLORIDE 0.9% INJ 100 ML IV SCH ×3 (00:27→16:48)
[2017-07-16] MEDS: CHLORHEXIDINE GLUCONATE 2 % 1 PACK (2 CLOTHS) TOP SCH (04:00)
[2017-07-16 04:42] LABS: AUTOMATED NEUTROPHIL # 7.6 TH/MM3 (1.8-7.7); BASOPHIL # 0.1 TH/MM3 (0-0.2); EOSINOPHIL # 0.7 TH/MM3 (0-0.4); EOSINOPHIL % 5.8 % (0.0-4.0); HEMOGLOBIN 8.9 GM/DL (13.0-17.0); LYMPH % 18.2 % (9.0-44.0); LYMPHOCYTE # 2.1 TH/MM3 (1.0-4.8); MEAN CELL VOLUME 93.7 FL (80.0-100.0); MEAN CORPUSCULAR HEMOGLOBIN 30.8 PG (27.0-34.0); MEAN CORPUSCULAR HGB CONC 32.9 % (32.0-36.0); MEAN PLATELET VOLUME 9.1 FL (7.0-11.0); MONO % 10.4 % (0.0-8.0); MONOCYTE # 1.2 TH/MM3 (0-0.9); NEUT % 64.6 % (16.0-70.0); PLATELET COUNT 332 TH/MM3 (150-450); RED BLOOD COUNT 2.88 MIL/MM3 (4.50-5.90); RED CELL DISTRIBUTION WIDTH 14.1 % (11.6-17.2); WHITE BLOOD COUNT 11.8 TH/MM3 (4.0-11.0)
[2017-07-16 05:00] LABS: ALBUMIN 1.7 GM/DL (3.4-5.0); ALT (GPT) 55 U/L (12-78); AST (GOT) 40 U/L (15-37); BICARBONATE 27.6 MEQ/L (21.0-32.0); BLOOD UREA NITROGEN 35 MG/DL (7-18); CHLORIDE 110 MEQ/L (98-107); CREATININE 1.27 MG/DL (0.60-1.30); GLOMERULAR FILTRATION RATE 58 ML/MIN (>89); GLUCOSE,RANDOM 255 MG/DL (74-106); SODIUM (NA) 143 MEQ/L (136-145)
[2017-07-16 05:03] LABS: ALKALINE PHOSPHATASE 139 U/L (45-117); TOTAL BILIRUBIN ADULT 0.3 MG/DL (0.2-1.0); TOTAL PROTEIN 6.3 GM/DL (6.4-8.2)
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
[2017-07-16] MEDS: PROPRANOLOL HCL 10 MG TAB PO SCH ×3 (05:29→21:51)
[2017-07-16 05:59] LABS: BANDS 2 % (0-6); LYMPHOCYTES 20 % (9-44); MONOCYTES 8 % (0-8); MYELOCYTES 2 % (0-0); NEUTROPHIL # MANUAL DIFF 7.8 TH/MM3 (1.8-7.7); POLYS (SEG NEUTROPHILS) 62 % (16-70)
[2017-07-16] MEDS: FREE WATER G-TUBE SCH ×4 (06:00→18:08)
[2017-07-16] MEDS: LACTULOSE SYRUP 20 GM/30 ML CUP PO SCH (09:00)
[2017-07-16] MEDS: MAGNESIUM HYDROXIDE SUSP 30 ML CUP PO SCH ×2 (09:00→19:54)
[2017-07-16] MEDS: INSULIN DETEMIR 100 UNITS/ML VIAL SQ SCH ×2 (09:33→19:51)
[2017-07-16] MEDS: LANSOPRAZOLE SOLUTAB 30 MG TAB NG SCH (09:36)
[2017-07-16] MEDS: METOPROLOL TARTRATE 100 MG TAB PO SCH ×2 (09:37→19:51)
[2017-07-16] MEDS: CHLORHEXIDINE 0.12% (ORAL KIT) 15 ML CUP MT SCH ×2 (09:38→19:54)
[2017-07-16] MEDS: SODIUM CHLORIDE FLUSH BID IV FLUSH SCH ×2 (09:39→19:54)
[2017-07-16] MEDS: AMANTADINE HCL SOLN 100 MG/10 ML UDC PO SCH ×2 (09:41→14:49)
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
[2017-07-16] MEDS ORDERED: REMOVE OLD SCOPOLAMINE PATCH T-DERMAL SCH (10:59)
[2017-07-16] MEDS: ENOXAPARIN SODIUM 40 MG/0.4 ML SYRINGE SQ SCH (12:37)
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
[2017-07-17] VITALS (18 sets, daily range): BP systolic 119–142; BP diastolic 67–79; PULSE 68–80; RESP 15–30; TEMP 98.8–100; O2SAT 90–100
[2017-07-17] MEDS: CEFEPIME INJ 2,000 MG in SODIUM CHLORIDE 0.9% INJ 100 ML IV SCH ×4 (00:46→23:34)
[2017-07-17] MEDS: MEDIUM DOSE INSULIN NOVOLOG SUPPLEMENTAL SCALE SQ SCH ×5 (00:47→23:34)
[2017-07-17] MEDS: CHLORHEXIDINE GLUCONATE 2 % 1 PACK (2 CLOTHS) TOP SCH ×2 (00:48→23:35)
[2017-07-17 03:27] LABS: AUTOMATED NEUTROPHIL # 8.4 TH/MM3 (1.8-7.7); BASOPHIL # 0.1 TH/MM3 (0-0.2); EOSINOPHIL # 0.7 TH/MM3 (0-0.4); EOSINOPHIL % 5.4 % (0.0-4.0); HEMATOCRIT 27.7 % (39.0-51.0); LYMPH % 18.3 % (9.0-44.0); LYMPHOCYTE # 2.3 TH/MM3 (1.0-4.8); MEAN CELL VOLUME 94.3 FL (80.0-100.0); MEAN CORPUSCULAR HEMOGLOBIN 30.5 PG (27.0-34.0); MEAN CORPUSCULAR HGB CONC 32.3 % (32.0-36.0); MEAN PLATELET VOLUME 9.4 FL (7.0-11.0); MONO % 9.7 % (0.0-8.0); MONOCYTE # 1.2 TH/MM3 (0-0.9); NEUT % 65.6 % (16.0-70.0); PLATELET COUNT 340 TH/MM3 (150-450); RED BLOOD COUNT 2.94 MIL/MM3 (4.50-5.90); RED CELL DISTRIBUTION WIDTH 14.7 % (11.6-17.2); WHITE BLOOD COUNT 12.8 TH/MM3 (4.0-11.0)
[2017-07-17 03:44] LABS: ALBUMIN 1.8 GM/DL (3.4-5.0); AST (GOT) 42 U/L (15-37); BLOOD UREA NITROGEN 34 MG/DL (7-18); CALCIUM 8.1 MG/DL (8.5-10.1); CHLORIDE 111 MEQ/L (98-107); CREATININE 1.26 MG/DL (0.60-1.30); GLOMERULAR FILTRATION RATE 59 ML/MIN (>89); GLUCOSE,RANDOM 244 MG/DL (74-106); SODIUM (NA) 144 MEQ/L (136-145)
[2017-07-17 03:47] LABS: ALKALINE PHOSPHATASE 163 U/L (45-117); ALT (GPT) 55 U/L (12-78); TOTAL BILIRUBIN ADULT 0.3 MG/DL (0.2-1.0); TOTAL PROTEIN 6.5 GM/DL (6.4-8.2)
[2017-07-17] MEDS: FREE WATER G-TUBE SCH ×5 (05:06→23:35)
[2017-07-17] MEDS: PROPRANOLOL HCL 10 MG TAB PO SCH ×3 (05:06→21:28)
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
[2017-07-17 05:35] LABS: BANDS 5 % (0-6); BASOPHILS 1 % (0-2); LYMPHOCYTES 13 % (9-44); METAMYELOCYTES 1 % (0-1); MONOCYTES 7 % (0-8); MYELOCYTES 5 % (0-0); NEUTROPHIL # MANUAL DIFF 9.3 TH/MM3 (1.8-7.7); POLYS (SEG NEUTROPHILS) 62 % (16-70)
[2017-07-17 05:37] LABS: POLYCHROMASIA 3.5 % (0.0-1.9)
[2017-07-17] MEDS: SODIUM CHLORIDE FLUSH BID IV FLUSH SCH ×2 (08:15→20:11)
[2017-07-17] MEDS: METOPROLOL TARTRATE 100 MG TAB PO SCH ×2 (08:15→20:10)
[2017-07-17] MEDS: LANSOPRAZOLE SOLUTAB 30 MG TAB NG SCH (08:15)
[2017-07-17] MEDS: AMANTADINE HCL SOLN 100 MG/10 ML UDC PO SCH ×2 (08:15→14:26)
[2017-07-17] MEDS: INSULIN DETEMIR 100 UNITS/ML VIAL SQ SCH ×2 (08:16→20:10)
[2017-07-17] MEDS: LACTULOSE SYRUP 20 GM/30 ML CUP PO SCH (08:16)
[2017-07-17] MEDS: MAGNESIUM HYDROXIDE SUSP 30 ML CUP PO SCH ×2 (08:16→20:10)
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
[2017-07-17] MEDS: CHLORHEXIDINE 0.12% (ORAL KIT) 15 ML CUP MT SCH ×2 (08:17→20:00)
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
[2017-07-17] MEDS: ENOXAPARIN SODIUM 40 MG/0.4 ML SYRINGE SQ SCH (13:57)
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
[2017-07-18] VITALS (18 sets, daily range): BP systolic 119–148; BP diastolic 69–86; PULSE 64–78; RESP 20–26; TEMP 98.7–99.6; O2SAT 88–100
--- NOTE | 2017-07-18 03:55 | RADRPT ---
EXAM DATE/TIME: 07/18/2017 03:06 [facility] COMPARISON: CHEST SINGLE AP, July 17, 2017, 3:57. INDICATIONS : Respiratory distress. MEDICAL HISTORY : Diabetes mellitus type II. Hypertension. SURGICAL HISTORY : Fusion, thoracic. ENCOUNTER: Subsequent ACUITY: 2 weeks PAIN SCORE: Non-responsive. LOCATION: Bilateral chest FINDINGS: The cardiac silhouette is enlarged in transverse diameter. A tracheostomy tube is in place in the mid line. There is left lower lobe atelectasis versus pneumonia. A moderate size left sided effusion is p resent. The right lung is free of acute parenchymal opacity. CONCLUSION: 1. Cardiomegaly 2. Left lower lobe atelectasis versus pneumonia. Left effusion Jose Adkins MD on July 18, 2017 at 3:53 Board Certified Radiologist. This report was verified electronically.
[2017-07-18 05:34] LABS: AUTOMATED NEUTROPHIL # 8.1 TH/MM3 (1.8-7.7); BASOPHIL # 0.1 TH/MM3 (0-0.2); BASOPHIL % 1.1 % (0.0-2.0); EOSINOPHIL # 0.5 TH/MM3 (0-0.4); EOSINOPHIL % 3.8 % (0.0-4.0); HEMATOCRIT 28.1 % (39.0-51.0); HEMOGLOBIN 9.2 GM/DL (13.0-17.0); LYMPH % 18.4 % (9.0-44.0); LYMPHOCYTE # 2.2 TH/MM3 (1.0-4.8); MEAN CELL VOLUME 94.4 FL (80.0-100.0); MEAN CORPUSCULAR HGB CONC 32.8 % (32.0-36.0); MEAN PLATELET VOLUME 9.9 FL (7.0-11.0); MONO % 9.7 % (0.0-8.0); MONOCYTE # 1.2 TH/MM3 (0-0.9); PLATELET COUNT 349 TH/MM3 (150-450); RED BLOOD COUNT 2.98 MIL/MM3 (4.50-5.90); RED CELL DISTRIBUTION WIDTH 14.6 % (11.6-17.2); WHITE BLOOD COUNT 12.1 TH/MM3 (4.0-11.0)
[2017-07-18 06:00] LABS: ALKALINE PHOSPHATASE 198 U/L (45-117); TOTAL BILIRUBIN ADULT 0.3 MG/DL (0.2-1.0); TOTAL PROTEIN 6.9 GM/DL (6.4-8.2)
[2017-07-18] MEDS: FREE WATER G-TUBE SCH ×3 (06:00→17:34)
[2017-07-18] MEDS: MEDIUM DOSE INSULIN NOVOLOG SUPPLEMENTAL SCALE SQ SCH (06:00)
[2017-07-18] MEDS: PROPRANOLOL HCL 10 MG TAB PO SCH ×3 (06:01→20:58)
[2017-07-18 06:02] LABS: ALBUMIN 1.9 GM/DL (3.4-5.0); ALT (GPT) 52 U/L (12-78); AST (GOT) 36 U/L (15-37); BICARBONATE 25.9 MEQ/L (21.0-32.0); BLOOD UREA NITROGEN 28 MG/DL (7-18); CALCIUM 8.3 MG/DL (8.5-10.1); CHLORIDE 109 MEQ/L (98-107); CREATININE 1.14 MG/DL (0.60-1.30); GLOMERULAR FILTRATION RATE 66 ML/MIN (>89); GLUCOSE,RANDOM 231 MG/DL (74-106); SODIUM (NA) 142 MEQ/L (136-145)
[2017-07-18] MEDS: AMANTADINE HCL SOLN 100 MG/10 ML UDC PO SCH ×2 (06:05→12:30)
[2017-07-18 07:16] LABS: BANDS 1 % (0-6); BASOPHILS 1 % (0-2); CORRECTED NUCLEATED RBC 3 /100 WBC (0-0); LYMPHOCYTES 19 % (9-44); METAMYELOCYTES 1 % (0-1); MONOCYTES 7 % (0-8); MYELOCYTES 1 % (0-0); NEUTROPHIL # MANUAL DIFF 8.3 TH/MM3 (1.8-7.7); NUCLEATED RED BLOOD CELL 3 (0-0); POLYS (SEG NEUTROPHILS) 66 % (16-70)
[2017-07-18] MEDS: CEFEPIME INJ 2,000 MG in SODIUM CHLORIDE 0.9% INJ 100 ML IV SCH ×2 (07:50→17:37)
[2017-07-18] MEDS: METOPROLOL TARTRATE 100 MG TAB PO SCH ×2 (07:50→20:58)
[2017-07-18] MEDS: LANSOPRAZOLE SOLUTAB 30 MG TAB NG SCH (07:50)
[2017-07-18] MEDS: CHLORHEXIDINE 0.12% (ORAL KIT) 15 ML CUP MT SCH ×2 (07:51→20:00)
[2017-07-18] MEDS: SODIUM CHLORIDE FLUSH BID IV FLUSH SCH ×2 (07:51→20:57)
[2017-07-18] MEDS: LACTULOSE SYRUP 20 GM/30 ML CUP PO SCH ×2 (07:52→08:42)
[2017-07-18] MEDS: MAGNESIUM HYDROXIDE SUSP 30 ML CUP PO SCH ×2 (07:52→20:58)
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
[2017-07-18] MEDS: INSULIN DETEMIR 100 UNITS/ML VIAL SQ SCH ×2 (08:42→20:58)
[2017-07-18] MEDS: RESP: ALBUTEROL 2.5 MG/IPRATROPIUM 0.5 MG NEB (PRN) NEB ×3 (12:07→22:01)
[2017-07-18] MEDS: ENOXAPARIN SODIUM 40 MG/0.4 ML SYRINGE SQ SCH (12:29)
[2017-07-18] MEDS ORDERED: PROPOFOL 500 MG/50 ML INJ 50 ML ONE (12:57)
[2017-07-18] MEDS: INSULIN ASPART SUPPLEMENTAL SCALE SQ SCH ×2 (13:49→17:34)
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
--- NOTE | 2017-07-18 14:36 | RADRPT ---
EXAM DATE/TIME: 07/18/2017 13:51 [facility] COMPARISON: CHEST SINGLE AP, July 18, 2017, 3:06. INDICATIONS : Desaturation. MEDICAL HISTORY : Hypertension. Diabetes. SURGICAL HISTORY : Fusion, thoracic. ENCOUNTER: Subsequent ACUITY: 2 weeks PAIN SCORE: Non-responsive. LOCATION: Bilateral chest FINDINGS: Endotracheal tube is present in stable position with tip several centimeters above the chung. There has been some interval improvement in aeration with improved lung volumes and decrease in confluence of bilateral infiltrates. Mild persistent consolidation mainly at the left lung base, potentially wit h small associated effusion. Visualized cardiac contours are unchanged. CONCLUSION: Improving aeration Kory Hadley MD on July 18, 2017 at 14:32 Board Certified Radiologist. This report was verified electronically.
[2017-07-18] MEDS: PROPOFOL 1000 MG/100 ML IV PRN (18:46)
[2017-07-18] MEDS: CHLORHEXIDINE GLUCONATE 2 % 1 PACK (2 CLOTHS) TOP SCH (20:08)
[2017-07-19] VITALS (18 sets, daily range): BP systolic 122–143; BP diastolic 54–83; PULSE 47–82; RESP 20–33; TEMP 98.4–99; O2SAT 92–100
[2017-07-19] MEDS: CEFEPIME INJ 2,000 MG in SODIUM CHLORIDE 0.9% INJ 100 ML IV SCH ×4 (00:36→23:59)
[2017-07-19] MEDS: RESP: ALBUTEROL 2.5 MG/IPRATROPIUM 0.5 MG NEB (SCH) NEB ×4 (04:10→21:41)
[2017-07-19] MEDS: FREE WATER G-TUBE SCH ×5 (05:22→23:59)
[2017-07-19] MEDS: PROPRANOLOL HCL 10 MG TAB PO SCH ×3 (05:22→21:09)
[2017-07-19] MEDS: INSULIN ASPART SUPPLEMENTAL SCALE SQ SCH ×5 (05:23→23:59)
--- NOTE | 2017-07-19 05:57 | RADRPT ---
EXAM DATE/TIME: 07/19/2017 04:31 [facility] COMPARISON: CHEST SINGLE AP, July 18, 2017, 13:51. INDICATIONS : Shortness of breath. MEDICAL HISTORY : Hypertension. Diabetes SURGICAL HISTORY : Fusion, thoracic. ENCOUNTER: Subsequent ACUITY: 2 weeks PAIN SCORE: Non-responsive. LOCATION: Bilateral chest FINDINGS: The cardiac silhouette is enlarged in transverse diameter. There is bilateral lower lobe atelectasis versus pneumonia. Endotracheal tube is at the chung. CONCLUSION: 1. Left lower lobe atelectasis versus pneumonia. There has been no significant change when compared t o the prior exam. Jose Adkins MD on July 19, 2017 at 5:55 Board Certified Radiologist. This report was verified electronically.
[2017-07-19] MEDS: AMANTADINE HCL SOLN 100 MG/10 ML UDC PO SCH ×2 (06:04→12:14)
[2017-07-19 07:04] LABS: ALKALINE PHOSPHATASE 242 U/L (45-117); ALT (GPT) 42 U/L (12-78); TOTAL BILIRUBIN ADULT 0.4 MG/DL (0.2-1.0); TOTAL PROTEIN 6.9 GM/DL (6.4-8.2)
[2017-07-19 07:06] LABS: ALBUMIN 1.9 GM/DL (3.4-5.0); AST (GOT) 34 U/L (15-37); BICARBONATE 24.1 MEQ/L (21.0-32.0); BLOOD UREA NITROGEN 26 MG/DL (7-18); CALCIUM 8.2 MG/DL (8.5-10.1); CHLORIDE 104 MEQ/L (98-107); CREATININE 1.08 MG/DL (0.60-1.30); GLOMERULAR FILTRATION RATE 70 ML/MIN (>89); GLUCOSE,RANDOM 141 MG/DL (74-106); SODIUM (NA) 138 MEQ/L (136-145)
[2017-07-19 07:11] LABS: AUTOMATED NEUTROPHIL # 10.6 TH/MM3 (1.8-7.7); BASOPHIL # 0.1 TH/MM3 (0-0.2); BASOPHIL % 0.9 % (0.0-2.0); EOSINOPHIL # 0.6 TH/MM3 (0-0.4); EOSINOPHIL % 3.9 % (0.0-4.0); HEMATOCRIT 30.6 % (39.0-51.0); LYMPH % 17.3 % (9.0-44.0); LYMPHOCYTE # 2.7 TH/MM3 (1.0-4.8); MEAN CELL VOLUME 95.1 FL (80.0-100.0); MEAN CORPUSCULAR HEMOGLOBIN 31.2 PG (27.0-34.0); MEAN CORPUSCULAR HGB CONC 32.8 % (32.0-36.0); MONO % 9.8 % (0.0-8.0); MONOCYTE # 1.5 TH/MM3 (0-0.9); NEUT % 68.1 % (16.0-70.0); PLATELET COUNT 336 TH/MM3 (150-450); RED BLOOD COUNT 3.21 MIL/MM3 (4.50-5.90); RED CELL DISTRIBUTION WIDTH 14.5 % (11.6-17.2); WHITE BLOOD COUNT 15.5 TH/MM3 (4.0-11.0)
[2017-07-19 08:35] LABS: BANDS 3 % (0-6); BASOPHILS 3 % (0-2); CORRECTED NUCLEATED RBC 2 /100 WBC (0-0); LYMPHOCYTES 14 % (9-44); MONOCYTES 11 % (0-8); NUCLEATED RED BLOOD CELL 2 (0-0); POLYS (SEG NEUTROPHILS) 68 % (16-70)
[2017-07-19 08:36] LABS: POLYCHROMASIA 2.6 % (0.0-1.9)
[2017-07-19] MEDS: MAGNESIUM HYDROXIDE SUSP 30 ML CUP PO SCH ×2 (09:00→21:09)
[2017-07-19] MEDS: METOPROLOL TARTRATE 100 MG TAB PO SCH ×2 (09:00→21:09)
[2017-07-19] MEDS: INSULIN DETEMIR 100 UNITS/ML VIAL SQ SCH ×2 (09:00→21:00)
[2017-07-19] MEDS: LANSOPRAZOLE SOLUTAB 30 MG TAB NG SCH (09:00)
[2017-07-19] MEDS: LACTULOSE SYRUP 20 GM/30 ML CUP PO SCH (09:00)
[2017-07-19] MEDS: SODIUM CHLORIDE FLUSH BID IV FLUSH SCH ×2 (09:01→21:00)
[2017-07-19] MEDS: CHLORHEXIDINE 0.12% (ORAL KIT) 15 ML CUP MT SCH ×2 (09:01→20:00)
[2017-07-19] MEDS: ENOXAPARIN SODIUM 40 MG/0.4 ML SYRINGE SQ SCH (12:15)
[2017-07-19] MEDS: PROPOFOL 1000 MG/100 ML IV PRN (14:06)
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
[2017-07-19] MEDS: CHLORHEXIDINE GLUCONATE 2 % 1 PACK (2 CLOTHS) TOP SCH (19:45)
[2017-07-20] VITALS (17 sets, daily range): BP systolic 118–159; BP diastolic 67–93; PULSE 70–84; RESP 16–30; TEMP 99–99.5; O2SAT 95–100
[2017-07-20] MEDS: RESP: ALBUTEROL 2.5 MG/IPRATROPIUM 0.5 MG NEB (PRN) NEB (02:12)
[2017-07-20] MEDS: RESP: ALBUTEROL 2.5 MG/IPRATROPIUM 0.5 MG NEB (SCH) NEB ×4 (04:08→20:12)
--- NOTE | 2017-07-20 04:17 | RADRPT ---
EXAM DATE/TIME: 07/20/2017 03:50 [facility] COMPARISON: CHEST SINGLE AP, July 19, 2017, 4:31. INDICATIONS : Shortness of breath MEDICAL HISTORY : Hypertension. Diabetes SURGICAL HISTORY : Fusion, thoracic ENCOUNTER: Subsequent ACUITY: 2 weeks PAIN SCORE: Non-responsive. LOCATION: Bilateral chest FINDINGS: The cardiac silhouette is enlarged in transverse diameter. There is prominence of the central pulmona ry vasculature with indistinct vascular margins compatible with vascular congestion but no evidence o f overt failure. There is left lower lobe atelectasis versus pneumonia. CONCLUSION: 1. Cardiomegaly and findings of vascular congestion without overt failure. 2. Left lower lobe atelectasis versus pneumonia. Jose Adkins MD on July 20, 2017 at 4:15 Board Certified Radiologist. This report was verified electronically.
[2017-07-20 05:10] LABS: BASOPHIL # 0.1 TH/MM3 (0-0.2); BASOPHIL % 0.7 % (0.0-2.0); EOSINOPHIL # 0.4 TH/MM3 (0-0.4); EOSINOPHIL % 3.5 % (0.0-4.0); HEMATOCRIT 30.6 % (39.0-51.0); HEMOGLOBIN 9.8 GM/DL (13.0-17.0); LYMPH % 14.3 % (9.0-44.0); LYMPHOCYTE # 1.8 TH/MM3 (1.0-4.8); MEAN CELL VOLUME 93.2 FL (80.0-100.0); MEAN CORPUSCULAR HEMOGLOBIN 29.9 PG (27.0-34.0); MEAN CORPUSCULAR HGB CONC 32.1 % (32.0-36.0); MEAN PLATELET VOLUME 9.7 FL (7.0-11.0); MONO % 8.3 % (0.0-8.0); NEUT % 73.2 % (16.0-70.0); PLATELET COUNT 365 TH/MM3 (150-450); RED BLOOD COUNT 3.29 MIL/MM3 (4.50-5.90); RED CELL DISTRIBUTION WIDTH 14.4 % (11.6-17.2); WHITE BLOOD COUNT 12.2 TH/MM3 (4.0-11.0)
[2017-07-20 05:23] LABS: ALBUMIN 2.2 GM/DL (3.4-5.0); AST (GOT) 26 U/L (15-37); BLOOD UREA NITROGEN 26 MG/DL (7-18); CALCIUM 8.3 MG/DL (8.5-10.1); CHLORIDE 104 MEQ/L (98-107); CREATININE 1.17 MG/DL (0.60-1.30); GLOMERULAR FILTRATION RATE 64 ML/MIN (>89); GLUCOSE,RANDOM 159 MG/DL (74-106); SODIUM (NA) 138 MEQ/L (136-145)
[2017-07-20 05:28] LABS: ALKALINE PHOSPHATASE 280 U/L (45-117); ALT (GPT) 40 U/L (12-78); TOTAL BILIRUBIN ADULT 0.4 MG/DL (0.2-1.0); TOTAL PROTEIN 7.4 GM/DL (6.4-8.2)
[2017-07-20] MEDS: FREE WATER G-TUBE SCH ×3 (05:57→18:00)
[2017-07-20] MEDS: INSULIN ASPART SUPPLEMENTAL SCALE SQ SCH ×3 (05:57→18:00)
[2017-07-20] MEDS: AMANTADINE HCL SOLN 100 MG/10 ML UDC PO SCH ×2 (05:59→14:46)
[2017-07-20] MEDS: PROPRANOLOL HCL 10 MG TAB PO SCH (06:00)
[2017-07-20] MEDS: CEFEPIME INJ 2,000 MG in SODIUM CHLORIDE 0.9% INJ 100 ML IV SCH ×2 (08:01→15:00)
[2017-07-20] MEDS: SODIUM CHLORIDE FLUSH BID IV FLUSH SCH ×2 (08:02→20:39)
[2017-07-20] MEDS: METOPROLOL TARTRATE 100 MG TAB PO SCH ×2 (08:02→20:39)
[2017-07-20] MEDS: LANSOPRAZOLE SOLUTAB 30 MG TAB NG SCH (08:02)
[2017-07-20] MEDS: LACTULOSE SYRUP 20 GM/30 ML CUP PO SCH (08:02)
[2017-07-20] MEDS: MAGNESIUM HYDROXIDE SUSP 30 ML CUP PO SCH ×2 (08:02→20:39)
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
[2017-07-20] MEDS: INSULIN DETEMIR 100 UNITS/ML VIAL SQ SCH ×2 (09:00→20:39)
[2017-07-20] MEDS: PROPOFOL 1000 MG/100 ML IV PRN ×4 (09:20→20:47)
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
[2017-07-20] MEDS ORDERED: VECURONIUM BROMIDE 10 MG VIAL IV PUSH SCH (09:30)
[2017-07-20] MEDS ORDERED: FUROSEMIDE 40 MG/4 ML VIAL IV PUSH ONE (09:45)
--- NOTE | 2017-07-20 13:16 | RADRPT ---
EXAM DATE/TIME: 07/20/2017 12:34 [facility] COMPARISON: CHEST SINGLE AP, July 20, 2017, 3:50. INDICATIONS : Bronchoscopy with tracheostomy placement. MEDICAL HISTORY : Hypertension. Diabetes SURGICAL HISTORY : Fusion, thoracic. ENCOUNTER: Subsequent ACUITY: 1 day PAIN SCORE: Non-responsive. LOCATION: Bilateral chest FINDINGS: A hemostat overlies the midline. The patient had previous vertebral fusion. A single view of the chest demonstrates the lungs to be symmetrically aerated without evidence of mas s, infiltrate or and a small left pleural effusion. The cardiomediastinal contours are unremarkable. Osseous structures are intact. CONCLUSION: Tracheostomy tube in good position. Small left pleural effusion. Ruben Cid MD on July 20, 2017 at 13:13 Board Certified Radiologist. This report was verified electronically.
--- NOTE | 2017-07-20 13:35 | PD.PROCEDR ---
Procedure Note Procedure DATE: 07/20/2017 Fiberoptic bronchoscopy, for tracheostomy placement INDICATION: Vent dependent respiratory failure CONSENT Informed consent for procedure was obtained Procedure note The patient was placed in supine position. Patient was on ACV 14/550/8/100. saturations 100%. Patient is currently on propofol drip at 20 mics as per kilogram per minute for sedation received 10 mg vecuronium.. I entered the 7.5 ET tube with fiberoptic bronchoscopy. Through a sealed side hole in the vent circuit the scope was introduced into the airway. The tracheobronchial tree was inspected. Normal branching anatomy. Moderate amounts of thick secretions suctioned from both sides. No inflammation. The scope and orotracheal tube were then withdrawn to the level of the cricoid and used to assist with insertion of a percutaneous tracheostomy by Dr. Gusman. After insertion, the scope was introduced through the new trach, confirming good position in the mid-trachea. Sats were maintained > 80% throughout the procedure.. There is a cuff leak which was clamped post procedure. Dr. Gusman person performing procedure, reexamined patient and aware and wishes to monitor the present time. Will replace if indicated COMPLICATIONS: No apparent complications. STAT chest x-ray has adequate positioning tracheostomy. Small left pleural effusion. Cr Lamas MD Jul 20, 2017 13:35
[2017-07-20] MEDS: ENOXAPARIN SODIUM 40 MG/0.4 ML SYRINGE SQ SCH (14:45)
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
[2017-07-20] MEDS: CHLORHEXIDINE GLUCONATE 2 % 1 PACK (2 CLOTHS) TOP SCH (19:50)
[2017-07-20] MEDS: CHLORHEXIDINE 0.12% (ORAL KIT) 15 ML CUP MT SCH (20:00)
[2017-07-21] VITALS (17 sets, daily range): BP systolic 105–150; BP diastolic 62–81; PULSE 76–94; RESP 16–22; TEMP 98–99.9; O2SAT 98–100
[2017-07-21] MEDS: CEFEPIME INJ 2,000 MG in SODIUM CHLORIDE 0.9% INJ 100 ML IV SCH ×3 (01:00→15:41)
[2017-07-21] MEDS: RESP: ALBUTEROL 2.5 MG/IPRATROPIUM 0.5 MG NEB (SCH) NEB ×4 (03:27→20:20)
[2017-07-21] MEDS: INSULIN ASPART SUPPLEMENTAL SCALE SQ SCH ×4 (06:00→18:07)
[2017-07-21] MEDS: FREE WATER G-TUBE SCH ×4 (06:00→18:06)
[2017-07-21 06:06] LABS: BASOPHIL # 0.1 TH/MM3 (0-0.2); BASOPHIL % 1.2 % (0.0-2.0); EOSINOPHIL # 0.3 TH/MM3 (0-0.4); EOSINOPHIL % 2.8 % (0.0-4.0); HEMATOCRIT 32.1 % (39.0-51.0); HEMOGLOBIN 10.3 GM/DL (13.0-17.0); LYMPH % 18.8 % (9.0-44.0); LYMPHOCYTE # 2.3 TH/MM3 (1.0-4.8); MEAN CELL VOLUME 93.8 FL (80.0-100.0); MEAN CORPUSCULAR HEMOGLOBIN 30.2 PG (27.0-34.0); MEAN CORPUSCULAR HGB CONC 32.2 % (32.0-36.0); MEAN PLATELET VOLUME 10.4 FL (7.0-11.0); MONOCYTE # 1.3 TH/MM3 (0-0.9); NEUT % 66.2 % (16.0-70.0); PLATELET COUNT 370 TH/MM3 (150-450); RED BLOOD COUNT 3.42 MIL/MM3 (4.50-5.90); RED CELL DISTRIBUTION WIDTH 15.2 % (11.6-17.2); WHITE BLOOD COUNT 12.1 TH/MM3 (4.0-11.0)
[2017-07-21 06:34] LABS: ALBUMIN 2.1 GM/DL (3.4-5.0); AST (GOT) 26 U/L (15-37); BICARBONATE 25.7 MEQ/L (21.0-32.0); BLOOD UREA NITROGEN 33 MG/DL (7-18); CHLORIDE 100 MEQ/L (98-107); CREATININE 1.39 MG/DL (0.60-1.30); GLOMERULAR FILTRATION RATE 53 ML/MIN (>89); GLUCOSE,RANDOM 187 MG/DL (74-106); SODIUM (NA) 136 MEQ/L (136-145)
[2017-07-21 06:35] LABS: ALT (GPT) 32 U/L (12-78)
[2017-07-21 06:37] LABS: ALKALINE PHOSPHATASE 275 U/L (45-117); TOTAL BILIRUBIN ADULT 0.4 MG/DL (0.2-1.0); TOTAL PROTEIN 7.2 GM/DL (6.4-8.2)
[2017-07-21] MEDS: AMANTADINE HCL SOLN 100 MG/10 ML UDC PO SCH ×2 (06:37→11:06)
--- NOTE | 2017-07-21 07:05 | RADRPT ---
EXAM DATE/TIME: 07/21/2017 06:43 [facility] COMPARISON: CHEST SINGLE AP, July 20, 2017, 12:34. INDICATIONS : Evaluate for pneumonia- Respiratory failure MEDICAL HISTORY : Hypertension. Diabetes mellitus type II. SURGICAL HISTORY : Fusion, thoracic. ENCOUNTER: Subsequent ACUITY: 1 month PAIN SCORE: Non-responsive. LOCATION: Bilateral chest FINDINGS: There appear to be some mild infiltrates in both lung bases. There some prominence of the interstitia l markings bilaterally. There is a tracheostomy tube in place. There is no pneumothorax. There is james dence of previous surgery and fusion to the thoracic spine. CONCLUSION: Mild bibasilar infiltrates. Mild pulmonary venous congestion. Zechariah Day MD on July 21, 2017 at 7:02 Board Certified Radiologist. This report was verified electronically.
[2017-07-21] MEDS: INSULIN DETEMIR 100 UNITS/ML VIAL SQ SCH ×2 (07:51→20:48)
[2017-07-21] MEDS: METOPROLOL TARTRATE 100 MG TAB PO SCH ×2 (07:51→20:43)
[2017-07-21] MEDS: LANSOPRAZOLE SOLUTAB 30 MG TAB NG SCH (07:51)
[2017-07-21] MEDS: CHLORHEXIDINE 0.12% (ORAL KIT) 15 ML CUP MT SCH ×2 (07:52→20:50)
[2017-07-21] MEDS: SODIUM CHLORIDE FLUSH BID IV FLUSH SCH ×2 (07:53→20:49)
[2017-07-21] MEDS: MAGNESIUM HYDROXIDE SUSP 30 ML CUP PO SCH ×2 (07:53→20:48)
[2017-07-21] MEDS: LACTULOSE SYRUP 20 GM/30 ML CUP PO SCH (07:53)
[2017-07-21] MEDS: PROPOFOL 1000 MG/100 ML IV PRN (07:58)
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
--- NOTE | 2017-07-21 10:35 | MP ---
cc: ANTONY COPELAND MD DATE OF SURGERY 07/20/2017 PREOPERATIVE DIAGNOSIS Respiratory failure, paraplegia. POSTOPERATIVE DIAGNOSIS Respiratory failure, paraplegia. PROCEDURE Blue rhino tracheostomy SURGEON Dr. Copeland HOSPICE SPIRITUAL CARE COORDINATOR Dr. Lamas ANESTHESIA Propofol, Vecuronium and Fentanyl, 1% Xylocaine ESTIMATED BLOOD LOSS 10 cc PROCEDURE NOTE The patient prepped and draped in the usual fashion. The area filtrated with 1% Xylocaine. A vertical incision made in the lower neck just above the sternum, deepened down with a hemostat to the trachea. The space between the second and third tracheal ring is palpated with a finger and then an Angiocath is inserted. Under bronchoscopy vision, the guidewire is passed down into bronchial tree. Over the guidewire, the punch dilator, the blue rhino dilator and the tracheostomy cannula on a 28 guide is placed, secured to the neck with 2-0 nylon and with tape around the neck. The patient tolerated the procedure well. Antony TREVIZO/ASHWINI /12:35 PM /10:24 AM
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
--- NOTE | 2017-07-21 16:46 | MP ---
cc: MD DINORAH,JAGUAR DATE OF SURGERY: 07/20/2017 PREOPERATIVE DIAGNOSIS: Cuff leak on the newly placed tracheostomy. POSTOPERATIVE DIAGNOSIS: Cuff leak on the newly placed tracheostomy. OPERATIVE PROCEDURE PERFORMED: Removal and replacement exchange of Blue Rhino tracheostomy. SURGEON: Jaguar Gusman M.D. YEAST CULTURE DEVELOPER AND BRONCHOSCOPIST: Cr Lamas MD. ANESTHESIA: General. ESTIMATED BLOOD LOSS: Minimal. INDICATIONS FOR THE PROCEDURE: This gentleman had just a blue rhino tracheostomy this morning and it was noted that there is a cuff leak in the tracheostomy cannula, mainly in the exterior balloon. This was initially fixed but then the patient would maintain the breaths and return started to go down. This is obviously a manufacturers faulty tracheostomy cannula. Therefore decision made to exchange this. DESCRIPTION OF THE PROCEDURE IN DETAIL: The bronchoscopy cart was brought up and Dr. Lamas intubated the patient through the mouth above the level of the tracheostomy through the vocal cords so that in case we lost the airway, we could just slide the endotracheal tube down. I then slid down the guidewire on the bronchoscopy guidance through the old tracheal cannula and then removed it over the guidewire and inserted the immediately the new tracheostomy cannula with a 22-Hungarian guide in it. The balloon was now inflated and the patient got good return. This was now connected to the ventilator once more. The patient was bronchoscoped through the tracheostomy. This completed this part of the procedure and a new tracheostomy cannula was sutured with 2-0 Prolene to the skin. Jaguar TREVIZO/SHONDA /5:00 PM /4:36 PM
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
[2017-07-21] MEDS: ENOXAPARIN SODIUM 40 MG/0.4 ML SYRINGE SQ SCH (20:49)
[2017-07-22] VITALS (16 sets, daily range): BP systolic 103–138; BP diastolic 59–74; PULSE 64–119; RESP 16–36; TEMP 98.7–99.8; O2SAT 94–100
[2017-07-22] MEDS: CEFEPIME INJ 2,000 MG in SODIUM CHLORIDE 0.9% INJ 100 ML IV SCH ×3 (00:10→15:38)
[2017-07-22] MEDS: INSULIN ASPART SUPPLEMENTAL SCALE SQ SCH ×4 (00:11→18:00)
[2017-07-22] MEDS: CHLORHEXIDINE GLUCONATE 2 % 1 PACK (2 CLOTHS) TOP SCH (01:11)
[2017-07-22] MEDS: RESP: ALBUTEROL 2.5 MG/IPRATROPIUM 0.5 MG NEB (SCH) NEB ×4 (03:50→19:31)
[2017-07-22] MEDS: AMANTADINE HCL SOLN 100 MG/10 ML UDC PO SCH ×2 (05:34→12:00)
[2017-07-22] MEDS: FREE WATER G-TUBE SCH ×2 (05:35)
[2017-07-22] MEDS: CHLORHEXIDINE 0.12% (ORAL KIT) 15 ML CUP MT SCH ×2 (08:00→20:00)
[2017-07-22] MEDS: LANSOPRAZOLE SOLUTAB 30 MG TAB NG SCH (08:29)
[2017-07-22] MEDS: METOPROLOL TARTRATE 100 MG TAB PO SCH ×2 (08:29→20:55)
[2017-07-22] MEDS: SODIUM CHLORIDE FLUSH BID IV FLUSH SCH ×2 (08:30→20:56)
[2017-07-22] MEDS: INSULIN DETEMIR 100 UNITS/ML VIAL SQ SCH ×2 (08:31→20:55)
[2017-07-22] MEDS: LACTULOSE SYRUP 20 GM/30 ML CUP PO SCH (08:31)
[2017-07-22] MEDS: MAGNESIUM HYDROXIDE SUSP 30 ML CUP PO SCH ×2 (08:31→20:50)
[2017-07-22] MEDS: ENOXAPARIN SODIUM 40 MG/0.4 ML SYRINGE SQ SCH ×2 (08:32→20:56)
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
[2017-07-22] MEDS: oxyCODONE HCL ORAL CONC 5 MG/0.25 ML SYRINGE PO SCH ×3 (12:00→20:56)
[2017-07-22] MEDS ORDERED: LACTULOSE SYRUP 20 GM/30 ML CUP PO PRN (12:00)
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
[2017-07-23] VITALS (17 sets, daily range): BP systolic 114–127; BP diastolic 62–78; PULSE 69–96; RESP 20–33; TEMP 98.9–103.1; O2SAT 94–100
[2017-07-23] MEDS: oxyCODONE HCL ORAL CONC 5 MG/0.25 ML SYRINGE PO SCH ×7 (00:42→23:34)
[2017-07-23] MEDS: CEFEPIME INJ 2,000 MG in SODIUM CHLORIDE 0.9% INJ 100 ML IV SCH ×4 (00:42→23:34)
[2017-07-23] MEDS: INSULIN ASPART SUPPLEMENTAL SCALE SQ SCH ×5 (01:14→23:33)
[2017-07-23] MEDS: ACETAMINOPHEN 325 MG TAB PO PRN ×2 (01:15→19:54)
[2017-07-23] MEDS: CHLORHEXIDINE GLUCONATE 2 % 1 PACK (2 CLOTHS) TOP SCH ×2 (01:51→23:34)
[2017-07-23] MEDS: AMANTADINE HCL SOLN 100 MG/10 ML UDC PO SCH ×2 (06:18→12:00)
[2017-07-23] MEDS: METOPROLOL TARTRATE 100 MG TAB PO SCH ×2 (08:12→19:53)
[2017-07-23] MEDS: LANSOPRAZOLE SOLUTAB 30 MG TAB NG SCH (08:12)
[2017-07-23] MEDS: ENOXAPARIN SODIUM 40 MG/0.4 ML SYRINGE SQ SCH ×2 (08:12→19:54)
[2017-07-23] MEDS: MAGNESIUM HYDROXIDE SUSP 30 ML CUP PO SCH ×2 (08:12→19:54)
[2017-07-23] MEDS: SODIUM CHLORIDE FLUSH BID IV FLUSH SCH ×2 (08:13→19:54)
[2017-07-23] MEDS: INSULIN DETEMIR 100 UNITS/ML VIAL SQ SCH ×2 (08:18→19:55)
[2017-07-23] MEDS: CHLORHEXIDINE 0.12% (ORAL KIT) 15 ML CUP MT SCH ×2 (08:18→19:55)
[2017-07-23 09:18] LABS: BICARBONATE 22.5 MEQ/L (21.0-32.0); CALCIUM 8.6 MG/DL (8.5-10.1); CREATININE 1.2 MG/DL (0.60-1.30)
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
[2017-07-23 09:52] LABS: AUTOMATED NEUTROPHIL # 10.1 TH/MM3 (1.8-7.7); BASOPHIL # 0.1 TH/MM3 (0-0.2); BASOPHIL % 0.9 % (0.0-2.0); EOSINOPHIL # 0.2 TH/MM3 (0-0.4); EOSINOPHIL % 1.8 % (0.0-4.0); HEMATOCRIT 30.8 % (39.0-51.0); LYMPH % 14.2 % (9.0-44.0); MEAN CELL VOLUME 93.6 FL (80.0-100.0); MEAN CORPUSCULAR HEMOGLOBIN 30.2 PG (27.0-34.0); MEAN CORPUSCULAR HGB CONC 32.3 % (32.0-36.0); MEAN PLATELET VOLUME 9.9 FL (7.0-11.0); MONOCYTE # 1.4 TH/MM3 (0-0.9); NEUT % 73.1 % (16.0-70.0); PLATELET COUNT 361 TH/MM3 (150-450); RED BLOOD COUNT 3.29 MIL/MM3 (4.50-5.90); RED CELL DISTRIBUTION WIDTH 14.9 % (11.6-17.2); WHITE BLOOD COUNT 13.7 TH/MM3 (4.0-11.0)
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
[2017-07-24] VITALS (17 sets, daily range): BP systolic 117–164; BP diastolic 70–85; PULSE 73–89; RESP 20–39; TEMP 98.6–100.1; O2SAT 94–100
[2017-07-24] MEDS: oxyCODONE HCL ORAL CONC 5 MG/0.25 ML SYRINGE PO SCH ×5 (03:47→23:59)
[2017-07-24] MEDS: AMANTADINE HCL SOLN 100 MG/10 ML UDC PO SCH ×2 (05:58→12:38)
[2017-07-24] MEDS: INSULIN ASPART SUPPLEMENTAL SCALE SQ SCH ×6 (06:00→23:59)
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
[2017-07-24] MEDS: INSULIN DETEMIR 100 UNITS/ML VIAL SQ SCH ×2 (08:06→20:39)
[2017-07-24] MEDS: MAGNESIUM HYDROXIDE SUSP 30 ML CUP PO SCH ×2 (08:06→19:46)
[2017-07-24] MEDS: METOPROLOL TARTRATE 100 MG TAB PO SCH ×2 (08:06→20:39)
[2017-07-24] MEDS: ENOXAPARIN SODIUM 40 MG/0.4 ML SYRINGE SQ SCH ×2 (08:06→20:39)
[2017-07-24] MEDS: LANSOPRAZOLE SOLUTAB 30 MG TAB NG SCH (08:06)
[2017-07-24] MEDS: SODIUM CHLORIDE FLUSH BID IV FLUSH SCH ×2 (08:07→20:40)
[2017-07-24] MEDS: CHLORHEXIDINE 0.12% (ORAL KIT) 15 ML CUP MT SCH ×2 (08:07→20:00)
[2017-07-24] MEDS: CEFEPIME INJ 2,000 MG in SODIUM CHLORIDE 0.9% INJ 100 ML IV SCH ×3 (08:17→23:58)
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
[2017-07-24] MEDS: CHLORHEXIDINE GLUCONATE 2 % 1 PACK (2 CLOTHS) TOP SCH (19:45)
[2017-07-25] VITALS (18 sets, daily range): BP systolic 117–158; BP diastolic 63–84; PULSE 75–92; RESP 22–40; TEMP 98.5–99.8; O2SAT 92–100
[2017-07-25] MEDS: oxyCODONE HCL ORAL CONC 5 MG/0.25 ML SYRINGE PO SCH ×4 (05:45→23:53)
[2017-07-25] MEDS: INSULIN ASPART SUPPLEMENTAL SCALE SQ SCH ×4 (05:46→23:53)
[2017-07-25] MEDS: AMANTADINE HCL SOLN 100 MG/10 ML UDC PO SCH ×2 (06:20→12:39)
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
[2017-07-25] MEDS: ENOXAPARIN SODIUM 40 MG/0.4 ML SYRINGE SQ SCH ×2 (08:19→21:22)
[2017-07-25] MEDS: MAGNESIUM HYDROXIDE SUSP 30 ML CUP PO SCH ×2 (08:19→20:23)
[2017-07-25] MEDS: METOPROLOL TARTRATE 100 MG TAB PO SCH ×2 (08:19→21:22)
[2017-07-25] MEDS: SODIUM CHLORIDE FLUSH BID IV FLUSH SCH ×2 (08:19→21:00)
[2017-07-25] MEDS: CHLORHEXIDINE 0.12% (ORAL KIT) 15 ML CUP MT SCH ×2 (08:19→20:00)
[2017-07-25] MEDS: INSULIN DETEMIR 100 UNITS/ML VIAL SQ SCH ×2 (08:19→21:00)
[2017-07-25] MEDS: LANSOPRAZOLE SOLUTAB 30 MG TAB NG SCH (08:19)
[2017-07-25] MEDS: CEFEPIME INJ 2,000 MG in SODIUM CHLORIDE 0.9% INJ 100 ML IV SCH (08:59)
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
[2017-07-25] MEDS: CHLORHEXIDINE GLUCONATE 2 % 1 PACK (2 CLOTHS) TOP SCH (20:22)
[2017-07-25] MEDS: HYOSCYAMINE 0.125 MG TAB PO PRN (22:22)
[2017-07-25] MEDS: RESP: ALBUTEROL 2.5 MG/IPRATROPIUM 0.5 MG NEB (PRN) NEB (23:02)
[2017-07-26] VITALS (15 sets, daily range): BP systolic 113–159; BP diastolic 67–89; PULSE 73–92; RESP 28–36; TEMP 98.7–100.1; O2SAT 93–100
[2017-07-26] MEDS: HYOSCYAMINE 0.125 MG TAB PO PRN ×3 (02:15→11:48)
[2017-07-26] MEDS: INSULIN ASPART SUPPLEMENTAL SCALE SQ SCH ×3 (06:00→18:00)
[2017-07-26] MEDS: oxyCODONE HCL ORAL CONC 5 MG/0.25 ML SYRINGE PO SCH ×4 (06:02→21:38)
[2017-07-26] MEDS: AMANTADINE HCL SOLN 100 MG/10 ML UDC PO SCH ×2 (06:02→12:00)
--- NOTE | 2017-07-26 06:41 | RADRPT ---
EXAM DATE/TIME: 07/26/2017 05:05 [facility] COMPARISON: CHEST SINGLE AP, July 21, 2017, 6:43. INDICATIONS : Shortness of breath. MEDICAL HISTORY : Hypertension. Diabetes mellitus type II. SURGICAL HISTORY : Fusion, thoracic. ENCOUNTER: Subsequent ACUITY: 1 month PAIN SCORE: Non-responsive. LOCATION: Bilateral chest FINDINGS: The tracheostomy tube is well placed. There is surgical hardware in the mid thoracic spine. The heart size is enlarged. There is increased density at the right base. Left lung is grossly clear. CONCLUSION: Right base atelectasis, consolidation and possible effusion. Kory Ramires MD on July 26, 2017 at 6:38 Board Certified Radiologist. This report was verified electronically.
[2017-07-26] MEDS: MAGNESIUM HYDROXIDE SUSP 30 ML CUP PO SCH ×2 (07:27→21:00)
[2017-07-26] MEDS: CHLORHEXIDINE 0.12% (ORAL KIT) 15 ML CUP MT SCH ×2 (08:00→20:00)
[2017-07-26 08:20] LABS: AUTOMATED NEUTROPHIL # 6.9 TH/MM3 (1.8-7.7); BASOPHIL # 0.1 TH/MM3 (0-0.2); BASOPHIL % 0.8 % (0.0-2.0); EOSINOPHIL # 0.2 TH/MM3 (0-0.4); EOSINOPHIL % 2.3 % (0.0-4.0); HEMATOCRIT 30.6 % (39.0-51.0); HEMOGLOBIN 10.1 GM/DL (13.0-17.0); LYMPH % 18.1 % (9.0-44.0); LYMPHOCYTE # 1.8 TH/MM3 (1.0-4.8); MEAN CELL VOLUME 90.6 FL (80.0-100.0); MEAN CORPUSCULAR HGB CONC 33.2 % (32.0-36.0); MEAN PLATELET VOLUME 10.2 FL (7.0-11.0); MONO % 10.8 % (0.0-8.0); MONOCYTE # 1.1 TH/MM3 (0-0.9); PLATELET COUNT 447 TH/MM3 (150-450); RED BLOOD COUNT 3.38 MIL/MM3 (4.50-5.90); RED CELL DISTRIBUTION WIDTH 15.5 % (11.6-17.2); WHITE BLOOD COUNT 10.2 TH/MM3 (4.0-11.0)
[2017-07-26 08:48] LABS: BICARBONATE 26.2 MEQ/L (21.0-32.0); CALCIUM 8.5 MG/DL (8.5-10.1); CREATININE 0.92 MG/DL (0.60-1.30)
[2017-07-26] MEDS: INSULIN DETEMIR 100 UNITS/ML VIAL SQ SCH ×2 (09:00→21:40)
[2017-07-26] MEDS: SODIUM CHLORIDE FLUSH BID IV FLUSH SCH ×2 (09:00→21:39)
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
[2017-07-26] MEDS: METOPROLOL TARTRATE 100 MG TAB PO SCH ×2 (09:42→21:39)
[2017-07-26] MEDS: LANSOPRAZOLE SOLUTAB 30 MG TAB NG SCH (09:42)
[2017-07-26] MEDS: ENOXAPARIN SODIUM 40 MG/0.4 ML SYRINGE SQ SCH ×2 (09:42→21:40)
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
[2017-07-26] MEDS: CHLORHEXIDINE GLUCONATE 2 % 1 PACK (2 CLOTHS) TOP SCH (21:41)
[2017-07-27] VITALS (15 sets, daily range): BP systolic 117–142; BP diastolic 66–84; PULSE 72–92; RESP 29–49; TEMP 98.8–101.1; O2SAT 90–98
[2017-07-27] MEDS: HYOSCYAMINE 0.125 MG TAB PO PRN (01:24)
[2017-07-27] MEDS: INSULIN ASPART SUPPLEMENTAL SCALE SQ SCH ×4 (01:38→18:55)
[2017-07-27] MEDS: oxyCODONE HCL ORAL CONC 5 MG/0.25 ML SYRINGE PO SCH ×4 (01:38→18:55)
[2017-07-27 04:26] LABS: AUTOMATED NEUTROPHIL # 6.8 TH/MM3 (1.8-7.7); BASOPHIL # 0.1 TH/MM3 (0-0.2); BASOPHIL % 0.7 % (0.0-2.0); EOSINOPHIL # 0.4 TH/MM3 (0-0.4); EOSINOPHIL % 3.4 % (0.0-4.0); HEMATOCRIT 31.3 % (39.0-51.0); HEMOGLOBIN 10.1 GM/DL (13.0-17.0); MEAN CELL VOLUME 90.8 FL (80.0-100.0); MEAN CORPUSCULAR HEMOGLOBIN 29.3 PG (27.0-34.0); MEAN CORPUSCULAR HGB CONC 32.3 % (32.0-36.0); MEAN PLATELET VOLUME 9.7 FL (7.0-11.0); MONOCYTE # 1.3 TH/MM3 (0-0.9); NEUT % 64.9 % (16.0-70.0); PLATELET COUNT 410 TH/MM3 (150-450); RED BLOOD COUNT 3.45 MIL/MM3 (4.50-5.90); RED CELL DISTRIBUTION WIDTH 15.6 % (11.6-17.2); WHITE BLOOD COUNT 10.5 TH/MM3 (4.0-11.0)
[2017-07-27 04:54] LABS: ALKALINE PHOSPHATASE 241 U/L (45-117); TOTAL BILIRUBIN ADULT 0.4 MG/DL (0.2-1.0); TOTAL PROTEIN 7.5 GM/DL (6.4-8.2)
[2017-07-27 04:58] LABS: ALT (GPT) 50 U/L (12-78); AST (GOT) 48 U/L (15-37); BICARBONATE 26.9 MEQ/L (21.0-32.0); BLOOD UREA NITROGEN 34 MG/DL (7-18); CALCIUM 8.5 MG/DL (8.5-10.1); CHLORIDE 107 MEQ/L (98-107); GLOMERULAR FILTRATION RATE 77 ML/MIN (>89); GLUCOSE,RANDOM 176 MG/DL (74-106); SODIUM (NA) 141 MEQ/L (136-145)
[2017-07-27] MEDS: AMANTADINE HCL SOLN 100 MG/10 ML UDC PO SCH ×2 (07:00→12:18)
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
[2017-07-27] MEDS: SODIUM CHLORIDE FLUSH BID IV FLUSH SCH ×2 (09:00→20:28)
[2017-07-27] MEDS: LANSOPRAZOLE SOLUTAB 30 MG TAB NG SCH (09:23)
[2017-07-27] MEDS: ENOXAPARIN SODIUM 40 MG/0.4 ML SYRINGE SQ SCH ×2 (09:23→20:29)
[2017-07-27] MEDS: MAGNESIUM HYDROXIDE SUSP 30 ML CUP PO SCH ×2 (09:23→20:28)
[2017-07-27] MEDS: METOPROLOL TARTRATE 100 MG TAB PO SCH ×2 (09:24→20:28)
[2017-07-27] MEDS: INSULIN DETEMIR 100 UNITS/ML VIAL SQ SCH ×2 (09:27→20:29)
[2017-07-27] MEDS: CHLORHEXIDINE 0.12% (ORAL KIT) 15 ML CUP MT SCH ×2 (09:31→20:28)
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
[2017-07-27] MEDS: PIPERACIL-TAZO 3.375 GM PREMIX 50 ML IV SCH ×3 (11:32→22:37)
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
[2017-07-27] MEDS: ACETAMINOPHEN 325 MG TAB PO PRN ×2 (19:25→20:28)
[2017-07-28] VITALS (21 sets, daily range): BP systolic 103–156; BP diastolic 56–88; PULSE 79–98; RESP 16–45; TEMP 100.2–101.1; O2SAT 86–100
--- NOTE | 2017-07-28 00:23 | RADRPT ---
EXAM DATE/TIME: 07/27/2017 23:55 [facility] COMPARISON: CHEST SINGLE AP, July 26, 2017, 5:05. INDICATIONS : Shortness of breath. MEDICAL HISTORY : Hypertension. Diabetes mellitus type II. SURGICAL HISTORY : Fusion, thoracic. ENCOUNTER: Subsequent ACUITY: 1 month PAIN SCORE: Non-responsive. LOCATION: chest FINDINGS: Stable tracheostomy. Diffuse interstitial prominence and patchy airspace disease in the left mid to l ower lung zones. Improved patchy airspace disease in the right lower lung zone. Likely small bilatera l pleural effusions. Cardiac silhouette is enlarged with indistinct central vascularity. Remainder of the exam is unchanged. CONCLUSION: 1. Cardiomegaly with worsening pulmonary vascular congestion. 2. Improved right lower lung zone patchy airspace disease consistent with improved atelectasis. 3. Progressive right mid to lower lung zone patchy airspace disease, likely atelectasis. 4. Probable small bilateral pleural effusions. Seven Franco MD on July 28, 2017 at 0:20 Board Certified Radiologist. This report was verified electronically.
[2017-07-28] MEDS ORDERED: MIDAZOLAM HCL 5 MG/ML VIAL (1 ML) ONE (00:39)
[2017-07-28] MEDS ORDERED: PROPOFOL 500 MG/50 ML INJ 50 ML ONE (00:46)
[2017-07-28] MEDS ORDERED: ROCURONIUM INJ 50 MG/5 ML VIAL ONE (00:54)
--- NOTE | 2017-07-28 01:31 | RADRPT ---
EXAM DATE/TIME: 07/28/2017 01:03 [facility] COMPARISON: CHEST SINGLE AP, July 27, 2017, 23:55. INDICATIONS : Post Trach Exchange MEDICAL HISTORY : Hypertension. Diabetes mellitus type II. SURGICAL HISTORY : Fusion, thoracic. ENCOUNTER: Subsequent ACUITY: 1 month PAIN SCORE: Non-responsive. LOCATION: Bilateral chest FINDINGS: New tracheostomy tip is at the level of the clavicles. Redemonstration of cardiomegaly with diffuse i nterstitial prominence. Improved aeration of the right lung base with slight progression of patchy ai rspace disease in the left mid to lower lung zones. Remainder of exam is unchanged. CONCLUSION: 1. New tracheostomy tip at the level of the clavicles. 2. Improved aeration of the right lower lung zone. 3. Slight progression of patchy airspace disease in the left mid to lower lung zones consistent with slight increased atelectasis. 4. Remainder of the exam is unchanged. Seven Franco MD on July 28, 2017 at 1:28 Board Certified Radiologist. This report was verified electronically.
--- NOTE | 2017-07-28 01:33 | RADRPT ---
EXAM DATE/TIME: 07/28/2017 01:16 [facility] COMPARISON: CHEST SINGLE AP, July 28, 2017, 1:03. INDICATIONS : Post bronch MEDICAL HISTORY : Hypertension. Diabetes mellitus type II. SURGICAL HISTORY : Fusion, thoracic. ENCOUNTER: Subsequent ACUITY: 1 month PAIN SCORE: Non-responsive. LOCATION: Bilateral chest FINDINGS: Stable tracheostomy. Improved patchy airspace disease in the left mid to lower lung zones. Continued mild diffuse interstitial prominence. Cardiac silhouette remains enlarged. Remainder of the exam is u nchanged. CONCLUSION: 1. Cardiomegaly with mild positive fluid balance. 2. Improved patchy airspace disease in the left mid to lower lung zones post bronchoscopy consistent with improved atelectasis. 3. No significant pneumothorax. Seven Franco MD on July 28, 2017 at 1:30 Board Certified Radiologist. This report was verified electronically.
--- NOTE | 2017-07-28 02:07 | PD.OP ---
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 Nehal Turcios MD Jul 28, 2017 02:07
[2017-07-28] MEDS: PROPOFOL 1000 MG/100 ML IV PRN ×5 (03:08→22:00)
[2017-07-28] MEDS ORDERED: ROCURONIUM INJ 50 MG/5 ML VIAL IV ONE (03:15)
[2017-07-28] MEDS ORDERED: MIDAZOLAM HCL 5 MG/5 ML VIAL IV PUSH ONE (03:15)
[2017-07-28] MEDS: SODIUM CHLOR 0.9% 1000 ML INJ 1,000 ML IV SCH ×3 (03:21→23:15)
--- NOTE | 2017-07-28 03:22 | RADRPT ---
EXAM DATE/TIME: 07/28/2017 02:42 [facility] COMPARISON: CHEST SINGLE AP, July 28, 2017, 1:16. INDICATIONS : O2 SATS dropping MEDICAL HISTORY : Diabetes mellitus type II. Hypertension SURGICAL HISTORY : Fusion, thoracic. ENCOUNTER: Subsequent ACUITY: 1 month PAIN SCORE: Non-responsive. LOCATION: Bilateral chest FINDINGS: Stable tracheostomy. Hazy diffuse opacity in the left lung with patchy airspace consolidation in the lower lung zone. Cardiac silhouette is enlarged. Interstitial prominence with indistinct pulmonary va scularity. Remainder of exam is unchanged. CONCLUSION: 1. Stable tracheostomy. 2. Progressive diffuse hazy opacity in the left hemithorax which may reflect atypical pulmonary edema +/- pleural effusion. 3. Remainder of the exam is unchanged. eSven Franco MD on July 28, 2017 at 3:18 Board Certified Radiologist. This report was verified electronically.
[2017-07-28] MEDS: CHLORHEXIDINE GLUCONATE 2 % 1 PACK (2 CLOTHS) TOP SCH (03:55)
[2017-07-28] MEDS: PIPERACIL-TAZO 3.375 GM PREMIX 50 ML IV SCH ×4 (04:46→22:15)
[2017-07-28] MEDS: oxyCODONE HCL ORAL CONC 5 MG/0.25 ML SYRINGE PO SCH ×4 (05:29→17:08)
[2017-07-28] MEDS: ACETAMINOPHEN 325 MG TAB PO PRN (05:30)
[2017-07-28 06:51] LABS: AUTOMATED NEUTROPHIL # 9.7 TH/MM3 (1.8-7.7); BASOPHIL # 0.1 TH/MM3 (0-0.2); BASOPHIL % 0.5 % (0.0-2.0); EOSINOPHIL # 0.2 TH/MM3 (0-0.4); EOSINOPHIL % 1.6 % (0.0-4.0); HEMATOCRIT 31.5 % (39.0-51.0); HEMOGLOBIN 10.1 GM/DL (13.0-17.0); LYMPH % 10.1 % (9.0-44.0); LYMPHOCYTE # 1.3 TH/MM3 (1.0-4.8); MEAN CELL VOLUME 91.3 FL (80.0-100.0); MEAN CORPUSCULAR HEMOGLOBIN 29.4 PG (27.0-34.0); MEAN CORPUSCULAR HGB CONC 32.2 % (32.0-36.0); MONO % 10.2 % (0.0-8.0); MONOCYTE # 1.3 TH/MM3 (0-0.9); NEUT % 77.6 % (16.0-70.0); PLATELET COUNT 423 TH/MM3 (150-450); RED BLOOD COUNT 3.45 MIL/MM3 (4.50-5.90); RED CELL DISTRIBUTION WIDTH 15.6 % (11.6-17.2); WHITE BLOOD COUNT 12.5 TH/MM3 (4.0-11.0)
[2017-07-28 07:13] LABS: AST (GOT) 35 U/L (15-37); BICARBONATE 25.9 MEQ/L (21.0-32.0); BLOOD UREA NITROGEN 36 MG/DL (7-18); CALCIUM 8.6 MG/DL (8.5-10.1); CHLORIDE 105 MEQ/L (98-107); CREATININE 1.17 MG/DL (0.60-1.30); GLOMERULAR FILTRATION RATE 64 ML/MIN (>89); GLUCOSE,RANDOM 256 MG/DL (74-106); SODIUM (NA) 141 MEQ/L (136-145)
[2017-07-28 07:15] LABS: ALT (GPT) 51 U/L (12-78)
[2017-07-28 07:17] LABS: ALKALINE PHOSPHATASE 238 U/L (45-117); TOTAL BILIRUBIN ADULT 0.5 MG/DL (0.2-1.0); TOTAL PROTEIN 7.4 GM/DL (6.4-8.2)
[2017-07-28] MEDS: INSULIN ASPART SUPPLEMENTAL SCALE SQ SCH ×4 (07:28→17:09)
[2017-07-28] MEDS: CHLORHEXIDINE 0.12% (ORAL KIT) 15 ML CUP MT SCH ×2 (08:00→21:18)
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
[2017-07-28] MEDS: SODIUM CHLORIDE FLUSH BID IV FLUSH SCH ×2 (09:00→21:18)
[2017-07-28] MEDS: METOPROLOL TARTRATE 100 MG TAB PO SCH ×2 (09:00→21:18)
[2017-07-28] MEDS: INSULIN DETEMIR 100 UNITS/ML VIAL SQ SCH ×2 (09:00→21:19)
[2017-07-28] MEDS: MAGNESIUM HYDROXIDE SUSP 30 ML CUP PO SCH ×2 (09:00→21:18)
[2017-07-28] MEDS ORDERED: Vancomycin Consult Pharmacy 1 EA OTHER SCH (09:45)
[2017-07-28] MEDS ORDERED: VANCOMYCIN 1 GM/200 ML INJ 200 ML IV SCH (09:45)
[2017-07-28] MEDS: LANSOPRAZOLE SOLUTAB 30 MG TAB NG SCH (09:59)
[2017-07-28] MEDS: ENOXAPARIN SODIUM 40 MG/0.4 ML SYRINGE SQ SCH ×2 (10:00→21:18)
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
[2017-07-28] MEDS ORDERED: FUROSEMIDE 20 MG/2 ML VIAL IV PUSH ONE (10:30)
[2017-07-28] MEDS ORDERED: VANCOMYCIN INJ 2,000 MG in SODIUM CHLORID 0.9% 500 ML INJ 500 ML IV ONE (12:00)
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
[2017-07-29] VITALS (18 sets, daily range): BP systolic 100–150; BP diastolic 55–80; PULSE 74–89; RESP 16–27; TEMP 98.8–101.5; O2SAT 94–100
[2017-07-29] MEDS: INSULIN ASPART SUPPLEMENTAL SCALE SQ SCH ×4 (00:34→17:22)
[2017-07-29] MEDS: oxyCODONE HCL ORAL CONC 5 MG/0.25 ML SYRINGE PO SCH ×5 (00:34→23:56)
[2017-07-29] MEDS ORDERED: VANCOMYCIN INJ 1,250 MG in SODIUM CHLOR 0.9% 250 ML INJ 250 ML IV SCH (02:00)
[2017-07-29] MEDS: CHLORHEXIDINE GLUCONATE 2 % 1 PACK (2 CLOTHS) TOP SCH (03:17)
[2017-07-29] MEDS: PROPOFOL 1000 MG/100 ML IV PRN ×2 (03:18→13:08)
[2017-07-29] MEDS: PIPERACIL-TAZO 3.375 GM PREMIX 50 ML IV SCH ×4 (03:53→23:56)
[2017-07-29 04:33] LABS: AUTOMATED NEUTROPHIL # 7.4 TH/MM3 (1.8-7.7); BASOPHIL # 0.1 TH/MM3 (0-0.2); EOSINOPHIL # 0.5 TH/MM3 (0-0.4); EOSINOPHIL % 4.4 % (0.0-4.0); HEMATOCRIT 29.8 % (39.0-51.0); HEMOGLOBIN 9.4 GM/DL (13.0-17.0); LYMPH % 22.1 % (9.0-44.0); LYMPHOCYTE # 2.6 TH/MM3 (1.0-4.8); MEAN CELL VOLUME 91.5 FL (80.0-100.0); MEAN CORPUSCULAR HEMOGLOBIN 28.9 PG (27.0-34.0); MEAN CORPUSCULAR HGB CONC 31.5 % (32.0-36.0); MEAN PLATELET VOLUME 9.6 FL (7.0-11.0); MONO % 9.6 % (0.0-8.0); MONOCYTE # 1.1 TH/MM3 (0-0.9); NEUT % 62.9 % (16.0-70.0); PLATELET COUNT 330 TH/MM3 (150-450); RED BLOOD COUNT 3.26 MIL/MM3 (4.50-5.90); RED CELL DISTRIBUTION WIDTH 15.9 % (11.6-17.2); WHITE BLOOD COUNT 11.8 TH/MM3 (4.0-11.0)
[2017-07-29 04:55] LABS: ALT (GPT) 40 U/L (12-78)
[2017-07-29 04:57] LABS: ALBUMIN 1.7 GM/DL (3.4-5.0); BICARBONATE 28.2 MEQ/L (21.0-32.0); BLOOD UREA NITROGEN 36 MG/DL (7-18); CALCIUM 8.2 MG/DL (8.5-10.1); CHLORIDE 110 MEQ/L (98-107); GLOMERULAR FILTRATION RATE 62 ML/MIN (>89); GLUCOSE,RANDOM 187 MG/DL (74-106); SODIUM (NA) 145 MEQ/L (136-145)
[2017-07-29 05:03] LABS: ALKALINE PHOSPHATASE 198 U/L (45-117); AST (GOT) 31 U/L (15-37); TOTAL BILIRUBIN ADULT 0.3 MG/DL (0.2-1.0); TOTAL PROTEIN 6.7 GM/DL (6.4-8.2)
[2017-07-29 05:43] LABS: BANDS 6 % (0-6); BASOPHILS 1 % (0-2); LYMPHOCYTES 16 % (9-44); METAMYELOCYTES 1 % (0-1); MONOCYTES 9 % (0-8); NEUTROPHIL # MANUAL DIFF 8.7 TH/MM3 (1.8-7.7); POLYS (SEG NEUTROPHILS) 67 % (16-70)
[2017-07-29 05:45] LABS: DOHLE BODIES PRESENT (NONE SEEN); TOXIC GRANULATION 1+ (NORMAL); TOXIC VACUOLATION PRESENT (NONE SEEN)
[2017-07-29] MEDS: AMANTADINE HCL SOLN 100 MG/10 ML UDC PO SCH ×2 (06:18→11:32)
[2017-07-29] MEDS: CHLORHEXIDINE 0.12% (ORAL KIT) 15 ML CUP MT SCH ×2 (08:00→20:00)
[2017-07-29] MEDS: ACETAMINOPHEN 325 MG TAB PO PRN ×3 (08:26→20:33)
[2017-07-29] MEDS: METOPROLOL TARTRATE 100 MG TAB PO SCH ×2 (08:27→20:34)
[2017-07-29] MEDS: ENOXAPARIN SODIUM 40 MG/0.4 ML SYRINGE SQ SCH ×2 (08:27→20:34)
[2017-07-29] MEDS: INSULIN DETEMIR 100 UNITS/ML VIAL SQ SCH ×2 (08:27→20:35)
[2017-07-29] MEDS: LANSOPRAZOLE SOLUTAB 30 MG TAB NG SCH (08:27)
[2017-07-29] MEDS: SODIUM CHLORIDE FLUSH BID IV FLUSH SCH ×2 (09:00→20:34)
[2017-07-29] MEDS: MAGNESIUM HYDROXIDE SUSP 30 ML CUP PO SCH ×2 (09:00→20:34)
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
--- NOTE | 2017-07-29 09:21 | RADRPT ---
EXAM DATE/TIME: 07/29/2017 08:59 [facility] COMPARISON: CHEST SINGLE AP, July 28, 2017, 2:42. INDICATIONS : Respiratory distress. MEDICAL HISTORY : Hypertension. Diabetes mellitus type II. SURGICAL HISTORY : Fusion, thoracic. ENCOUNTER: Subsequent ACUITY: 1 month PAIN SCORE: Non-responsive. LOCATION: Bilateral chest FINDINGS: There is improvement in aeration of the lungs since the prior exam. Residual perivascular pulmonary e nati remains mainly in the right lung. Tracheostomy tube is present in satisfactory position. The res t of the examination has not significantly changed. CONCLUSION: Overall improvement in the aeration of the lungs. Kaylene Sharp MD on July 29, 2017 at 9:18 Board Certified Radiologist. This report was verified electronically.
[2017-07-29] MEDS ORDERED: FUROSEMIDE 20 MG/2 ML VIAL IV PUSH ONE (10:00)
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
[2017-07-29] MEDS: SODIUM CHLOR 0.9% 1000 ML INJ 1,000 ML IV SCH (14:28)
[2017-07-29] MEDS: RESP: ALBUTEROL 2.5 MG/IPRATROPIUM 0.5 MG NEB (PRN) NEB (21:20)
[2017-07-30] VITALS (15 sets, daily range): BP systolic 104–151; BP diastolic 68–85; PULSE 74–83; RESP 17–27; TEMP 98.2–100.6; O2SAT 95–100
[2017-07-30] MEDS: INSULIN ASPART SUPPLEMENTAL SCALE SQ SCH ×4 (00:17→18:10)
[2017-07-30] MEDS ORDERED: PHARMACY ORDERED LAB ONE (01:45)
[2017-07-30] MEDS: SODIUM CHLOR 0.9% 1000 ML INJ 1,000 ML IV SCH (03:14)
[2017-07-30] MEDS: CHLORHEXIDINE GLUCONATE 2 % 1 PACK (2 CLOTHS) TOP SCH (04:00)
[2017-07-30] MEDS: PIPERACIL-TAZO 3.375 GM PREMIX 50 ML IV SCH ×4 (05:04→22:54)
--- NOTE | 2017-07-30 05:48 | RADRPT ---
EXAM DATE/TIME: 07/30/2017 04:35 [facility] COMPARISON: CHEST SINGLE AP, July 29, 2017, 8:59. INDICATIONS : Evaluate for pneumonia MEDICAL HISTORY : Hypertension. Diabetes mellitus type II. SURGICAL HISTORY : Fusion, thoracic. ENCOUNTER: Subsequent ACUITY: 1 month PAIN SCORE: Non-responsive. LOCATION: Bilateral chest FINDINGS: Stable tracheostomy. Minimal left lower lobe airspace disease. Mild interstitial prominence. Cardiome diastinal contours are stable. Remainder of the exam is unchanged. CONCLUSION: 1. Minimal left lower lobe airspace disease, likely atelectasis. 2. Mild positive fluid balance. 3. No significant interval change. Seven Franco MD on July 30, 2017 at 5:46 Board Certified Radiologist. This report was verified electronically.
[2017-07-30] MEDS: oxyCODONE HCL ORAL CONC 5 MG/0.25 ML SYRINGE PO SCH ×3 (05:49→18:10)
[2017-07-30 06:19] LABS: AUTOMATED NEUTROPHIL # 5.6 TH/MM3 (1.8-7.7); BASOPHIL # 0.1 TH/MM3 (0-0.2); BASOPHIL % 0.7 % (0.0-2.0); EOSINOPHIL # 0.4 TH/MM3 (0-0.4); EOSINOPHIL % 4.3 % (0.0-4.0); HEMATOCRIT 28.3 % (39.0-51.0); HEMOGLOBIN 9.1 GM/DL (13.0-17.0); LYMPHOCYTE # 1.6 TH/MM3 (1.0-4.8); MEAN CELL VOLUME 89.7 FL (80.0-100.0); MEAN CORPUSCULAR HEMOGLOBIN 28.8 PG (27.0-34.0); MEAN CORPUSCULAR HGB CONC 32.1 % (32.0-36.0); MEAN PLATELET VOLUME 9.6 FL (7.0-11.0); MONO % 8.8 % (0.0-8.0); MONOCYTE # 0.7 TH/MM3 (0-0.9); NEUT % 67.2 % (16.0-70.0); PLATELET COUNT 325 TH/MM3 (150-450); RED BLOOD COUNT 3.16 MIL/MM3 (4.50-5.90); RED CELL DISTRIBUTION WIDTH 15.8 % (11.6-17.2); WHITE BLOOD COUNT 8.3 TH/MM3 (4.0-11.0)
[2017-07-30 06:26] LABS: ALBUMIN 1.7 GM/DL (3.4-5.0); BICARBONATE 28.5 MEQ/L (21.0-32.0); BLOOD UREA NITROGEN 28 MG/DL (7-18); CALCIUM 8.6 MG/DL (8.5-10.1); CHLORIDE 108 MEQ/L (98-107); CREATININE 1.02 MG/DL (0.60-1.30); GLOMERULAR FILTRATION RATE 75 ML/MIN (>89); GLUCOSE,RANDOM 215 MG/DL (74-106); MAGNESIUM 2.4 MG/DL (1.5-2.5); SODIUM (NA) 143 MEQ/L (136-145)
[2017-07-30 06:28] LABS: ALT (GPT) 36 U/L (12-78); AST (GOT) 25 U/L (15-37)
[2017-07-30 06:31] LABS: ALKALINE PHOSPHATASE 181 U/L (45-117); TOTAL BILIRUBIN ADULT 0.3 MG/DL (0.2-1.0); TOTAL PROTEIN 7.1 GM/DL (6.4-8.2)
[2017-07-30] MEDS: ENALAPRILAT 1.25 MG/ML VIAL IV PUSH PRN (06:41)
[2017-07-30] MEDS: CHLORHEXIDINE 0.12% (ORAL KIT) 15 ML CUP MT SCH ×2 (08:00→20:00)
[2017-07-30] MEDS: MAGNESIUM HYDROXIDE SUSP 30 ML CUP PO SCH ×2 (08:01→19:50)
[2017-07-30] MEDS: ENOXAPARIN SODIUM 40 MG/0.4 ML SYRINGE SQ SCH ×2 (08:57→22:53)
[2017-07-30] MEDS: SODIUM CHLORIDE FLUSH BID IV FLUSH SCH ×2 (08:57→21:00)
[2017-07-30] MEDS: LANSOPRAZOLE SOLUTAB 30 MG TAB NG SCH (08:57)
[2017-07-30] MEDS: AMANTADINE HCL SOLN 100 MG/10 ML UDC PO SCH ×2 (08:57→13:22)
[2017-07-30] MEDS: METOPROLOL TARTRATE 100 MG TAB PO SCH ×2 (08:57→22:53)
[2017-07-30] MEDS: INSULIN DETEMIR 100 UNITS/ML VIAL SQ SCH ×2 (08:57→22:53)
[2017-07-30] MEDS ORDERED: LORazepam 2 MG/ML VIAL IV PUSH PRN (09:45)
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
[2017-07-30] MEDS: MORPHINE SULFATE 2 MG/ML INJ IV PUSH PRN ×2 (10:14→13:22)
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
[2017-07-31] VITALS (19 sets, daily range): BP systolic 112–163; BP diastolic 72–95; PULSE 70–84; RESP 17–55; TEMP 99–102; O2SAT 97–100
[2017-07-31] MEDS: oxyCODONE HCL ORAL CONC 5 MG/0.25 ML SYRINGE PO SCH ×4 (01:00→17:05)
[2017-07-31] MEDS: INSULIN ASPART SUPPLEMENTAL SCALE SQ SCH ×4 (01:18→18:48)
[2017-07-31] MEDS: ACETAMINOPHEN 325 MG TAB PO PRN ×2 (01:57→21:36)
[2017-07-31] MEDS: MORPHINE SULFATE 2 MG/ML INJ IV PUSH PRN (02:08)
[2017-07-31] MEDS: hydrALAZINE HCL 20 MG/ML VIAL IV PRN (02:42)
[2017-07-31] MEDS: CHLORHEXIDINE GLUCONATE 2 % 1 PACK (2 CLOTHS) TOP SCH ×2 (03:16→19:48)
[2017-07-31 04:41] LABS: AUTOMATED NEUTROPHIL # 5.4 TH/MM3 (1.8-7.7); BASOPHIL # 0.1 TH/MM3 (0-0.2); BASOPHIL % 0.8 % (0.0-2.0); EOSINOPHIL # 0.2 TH/MM3 (0-0.4); EOSINOPHIL % 2.9 % (0.0-4.0); HEMATOCRIT 27.5 % (39.0-51.0); HEMOGLOBIN 8.8 GM/DL (13.0-17.0); LYMPH % 19.3 % (9.0-44.0); LYMPHOCYTE # 1.5 TH/MM3 (1.0-4.8); MEAN CELL VOLUME 88.4 FL (80.0-100.0); MEAN CORPUSCULAR HEMOGLOBIN 28.4 PG (27.0-34.0); MEAN CORPUSCULAR HGB CONC 32.1 % (32.0-36.0); MEAN PLATELET VOLUME 9.3 FL (7.0-11.0); MONO % 7.2 % (0.0-8.0); MONOCYTE # 0.6 TH/MM3 (0-0.9); NEUT % 69.8 % (16.0-70.0); PLATELET COUNT 323 TH/MM3 (150-450); RED BLOOD COUNT 3.11 MIL/MM3 (4.50-5.90); RED CELL DISTRIBUTION WIDTH 15.9 % (11.6-17.2); WHITE BLOOD COUNT 7.8 TH/MM3 (4.0-11.0)
[2017-07-31 05:00] LABS: ALBUMIN 1.8 GM/DL (3.4-5.0); ALT (GPT) 39 U/L (12-78); AST (GOT) 33 U/L (15-37); BICARBONATE 28.8 MEQ/L (21.0-32.0); BLOOD UREA NITROGEN 26 MG/DL (7-18); CALCIUM 8.4 MG/DL (8.5-10.1); CHLORIDE 109 MEQ/L (98-107); CREATININE 0.95 MG/DL (0.60-1.30); GLOMERULAR FILTRATION RATE 82 ML/MIN (>89); GLUCOSE,RANDOM 209 MG/DL (74-106); MAGNESIUM 2.3 MG/DL (1.5-2.5); SODIUM (NA) 144 MEQ/L (136-145)
[2017-07-31] MEDS: PIPERACIL-TAZO 3.375 GM PREMIX 50 ML IV SCH ×3 (05:00→17:05)
[2017-07-31 05:03] LABS: ALKALINE PHOSPHATASE 182 U/L (45-117); TOTAL BILIRUBIN ADULT 0.3 MG/DL (0.2-1.0); TOTAL PROTEIN 7.1 GM/DL (6.4-8.2)
--- NOTE | 2017-07-31 05:30 | RADRPT ---
EXAM DATE/TIME: 07/31/2017 04:36 [facility] COMPARISON: CHEST SINGLE AP, July 30, 2017, 4:35. INDICATIONS : Short of breath. MEDICAL HISTORY : Hypertension. Diabetes mellitus type II. SURGICAL HISTORY : Fusion, thoracic. ENCOUNTER: Subsequent ACUITY: 1 month PAIN SCORE: 0/10 LOCATION: Bilateral chest FINDINGS: Tracheostomy in place. The lungs are symmetrically aerated. Persistent minimal patchy opacities in the left lower lung unchanged from prior. No focal areas of consolidation seen. Posterior spinal awan rdware in the thoracic region.. CONCLUSION: Mild residual patchy non-consolidative left lower lobe infiltrates. No new findings. Giacomo Watson MD on July 31, 2017 at 5:24 Board Certified Radiologist. This report was verified electronically.
[2017-07-31] MEDS: AMANTADINE HCL SOLN 100 MG/10 ML UDC PO SCH ×2 (06:25→17:05)
[2017-07-31] MEDS: CHLORHEXIDINE 0.12% (ORAL KIT) 15 ML CUP MT SCH ×2 (08:00→20:09)
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
[2017-07-31] MEDS: MAGNESIUM HYDROXIDE SUSP 30 ML CUP PO SCH ×2 (09:00→20:09)
[2017-07-31] MEDS: LANSOPRAZOLE SOLUTAB 30 MG TAB NG SCH (10:01)
[2017-07-31] MEDS: METOPROLOL TARTRATE 100 MG TAB PO SCH ×2 (10:01→20:08)
[2017-07-31] MEDS: ENOXAPARIN SODIUM 40 MG/0.4 ML SYRINGE SQ SCH ×2 (10:02→20:09)
[2017-07-31] MEDS: INSULIN DETEMIR 100 UNITS/ML VIAL SQ SCH ×2 (10:02→20:10)
[2017-07-31] MEDS: SODIUM CHLORIDE FLUSH BID IV FLUSH SCH ×2 (10:03→20:09)
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
--- NOTE | 2017-07-31 16:43 | PD.WCN.NOT ---
Wound Consult Description: Wound consult ordered by for Midline buttocks Communicated with: Jonnie WEBSTER [address] [place] [address], Recommendation: 1) Please reposition patient every 2 hours for comfort and offloading. 2) Please use only single layer of UltraSorb underpad for incontinence. 3) Encrust Denuded area to coccyx Daily or after every loose stool. ( To Encrust Apply stoma power to open area spray with skin prep repeat x3 creating artificial scab) 4) Consult wound care for deterioration of wound Additional Information: Patient was seen today by chief writer and Jonnie WEBSTER [address] [place] [address] for excoriation of coccyx.Patient requires full assistance to reposition to Right side .Patient is currently trach with O2 >95% with no distress noted.Assessment finding patient has moisture,incontinence,friction related Denuded area measuring 5.9cm x 6.2cm x 0.1cm wound margins well defined even with wound base. Scant bloody drainage noted when wound cleaned with gauze and normal saline. No odor noted , no signs and symptoms of infection. Mabry catheter intact.Jonnie WEBSTER [address] [place] [address] patient has loose stools 2-3 times daily. Encrusting performed to wound, Stoma power applied to all open areas then sprayed with skin prep and repeated x2 to create a artificial crust over wound.Jonnie WEBSTER demonstrated teaching on moisture control and encrusting and will communicate with following nurse. Hitesh Caceres [facility] Jul 31, 2017 16:43
[2017-08-01] VITALS (18 sets, daily range): BP systolic 92–171; BP diastolic 61–97; PULSE 66–86; RESP 15–29; TEMP 98.7–101.2; O2SAT 97–100
[2017-08-01] MEDS: PIPERACIL-TAZO 3.375 GM PREMIX 50 ML IV SCH ×5 (00:06→23:22)
[2017-08-01] MEDS: INSULIN ASPART SUPPLEMENTAL SCALE SQ SCH ×4 (00:06→17:43)
[2017-08-01] MEDS: hydrALAZINE HCL 20 MG/ML VIAL IV PRN (04:00)
[2017-08-01 04:43] LABS: AUTOMATED NEUTROPHIL # 5.8 TH/MM3 (1.8-7.7); BASOPHIL # 0.1 TH/MM3 (0-0.2); BASOPHIL % 0.9 % (0.0-2.0); EOSINOPHIL # 0.3 TH/MM3 (0-0.4); EOSINOPHIL % 3.3 % (0.0-4.0); HEMATOCRIT 26.2 % (39.0-51.0); HEMOGLOBIN 8.8 GM/DL (13.0-17.0); LYMPHOCYTE # 1.6 TH/MM3 (1.0-4.8); MEAN CELL VOLUME 87.9 FL (80.0-100.0); MEAN CORPUSCULAR HEMOGLOBIN 29.4 PG (27.0-34.0); MEAN CORPUSCULAR HGB CONC 33.4 % (32.0-36.0); MEAN PLATELET VOLUME 9.6 FL (7.0-11.0); MONO % 9.5 % (0.0-8.0); MONOCYTE # 0.8 TH/MM3 (0-0.9); NEUT % 67.3 % (16.0-70.0); PLATELET COUNT 295 TH/MM3 (150-450); RED BLOOD COUNT 2.98 MIL/MM3 (4.50-5.90); WHITE BLOOD COUNT 8.6 TH/MM3 (4.0-11.0)
[2017-08-01 05:10] LABS: ALBUMIN 1.8 GM/DL (3.4-5.0); AST (GOT) 36 U/L (15-37); BICARBONATE 26.3 MEQ/L (21.0-32.0); BLOOD UREA NITROGEN 25 MG/DL (7-18); CALCIUM 8.7 MG/DL (8.5-10.1); CHLORIDE 107 MEQ/L (98-107); CREATININE 0.96 MG/DL (0.60-1.30); GLOMERULAR FILTRATION RATE 81 ML/MIN (>89); GLUCOSE,RANDOM 189 MG/DL (74-106); MAGNESIUM 2.3 MG/DL (1.5-2.5); SODIUM (NA) 142 MEQ/L (136-145)
[2017-08-01 05:11] LABS: ALT (GPT) 48 U/L (12-78)
[2017-08-01 05:14] LABS: ALKALINE PHOSPHATASE 170 U/L (45-117); TOTAL BILIRUBIN ADULT 0.3 MG/DL (0.2-1.0); TOTAL PROTEIN 7.3 GM/DL (6.4-8.2)
[2017-08-01] MEDS: CHLORHEXIDINE 0.12% (ORAL KIT) 15 ML CUP MT SCH ×2 (08:00→20:00)
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
[2017-08-01] MEDS: MAGNESIUM HYDROXIDE SUSP 30 ML CUP PO SCH ×2 (09:00→20:37)
[2017-08-01] MEDS: AMANTADINE HCL SOLN 100 MG/10 ML UDC PO SCH ×2 (09:30→14:32)
[2017-08-01] MEDS: ENOXAPARIN SODIUM 40 MG/0.4 ML SYRINGE SQ SCH ×2 (09:30→20:45)
[2017-08-01] MEDS: SODIUM CHLORIDE FLUSH BID IV FLUSH SCH ×2 (09:30→20:44)
[2017-08-01] MEDS: LANSOPRAZOLE SOLUTAB 30 MG TAB NG SCH (09:31)
[2017-08-01] MEDS: METOPROLOL TARTRATE 100 MG TAB PO SCH ×2 (09:31→20:44)
[2017-08-01] MEDS: oxyCODONE HCL ORAL CONC 5 MG/0.25 ML SYRINGE PO PRN (09:31)
[2017-08-01] MEDS: INSULIN DETEMIR 100 UNITS/ML VIAL SQ SCH ×2 (09:31→20:44)
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
[2017-08-01] MEDS: ACETAMINOPHEN 325 MG TAB PO PRN (14:33)
[2017-08-01] MEDS: hydrALAZINE HCL 50 MG TAB PO SCH ×2 (14:33→20:44)
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
[2017-08-02] VITALS (18 sets, daily range): BP systolic 131–169; BP diastolic 77–95; PULSE 62–82; RESP 21–28; TEMP 98.5–99; O2SAT 94–100
[2017-08-02] MEDS: INSULIN ASPART SUPPLEMENTAL SCALE SQ SCH ×4 (00:43→18:00)
[2017-08-02] MEDS: CHLORHEXIDINE GLUCONATE 2 % 1 PACK (2 CLOTHS) TOP SCH (04:00)
[2017-08-02] MEDS: PIPERACIL-TAZO 3.375 GM PREMIX 50 ML IV SCH ×4 (04:14→22:36)
[2017-08-02] MEDS: CHLORHEXIDINE 0.12% (ORAL KIT) 15 ML CUP MT SCH ×2 (08:00→20:00)
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
[2017-08-02] MEDS: hydrALAZINE HCL 50 MG TAB PO SCH ×2 (08:50→20:51)
[2017-08-02] MEDS: LANSOPRAZOLE SOLUTAB 30 MG TAB NG SCH (08:50)
[2017-08-02] MEDS: MAGNESIUM HYDROXIDE SUSP 30 ML CUP PO SCH ×2 (08:50→20:52)
[2017-08-02] MEDS: METOPROLOL TARTRATE 100 MG TAB PO SCH ×2 (08:50→20:51)
[2017-08-02] MEDS: ENOXAPARIN SODIUM 40 MG/0.4 ML SYRINGE SQ SCH ×2 (08:51→20:51)
[2017-08-02] MEDS: INSULIN DETEMIR 100 UNITS/ML VIAL SQ SCH ×2 (08:51→20:51)
[2017-08-02] MEDS: SODIUM CHLORIDE FLUSH BID IV FLUSH SCH ×2 (11:28→20:51)
[2017-08-02] MEDS: AMANTADINE HCL SOLN 100 MG/10 ML UDC PO SCH (12:00)
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
[2017-08-03] VITALS (18 sets, daily range): BP systolic 102–150; BP diastolic 67–92; PULSE 70–82; RESP 19–26; TEMP 98.9–102; O2SAT 93–100
[2017-08-03] MEDS: CHLORHEXIDINE GLUCONATE 2 % 1 PACK (2 CLOTHS) TOP SCH (03:49)
[2017-08-03] MEDS: INSULIN ASPART SUPPLEMENTAL SCALE SQ SCH ×3 (06:00→12:00)
[2017-08-03] MEDS: PIPERACIL-TAZO 3.375 GM PREMIX 50 ML IV SCH ×4 (06:34→22:22)
[2017-08-03] MEDS: AMANTADINE HCL SOLN 100 MG/10 ML UDC PO SCH ×2 (06:57→11:58)
[2017-08-03] MEDS: CHLORHEXIDINE 0.12% (ORAL KIT) 15 ML CUP MT SCH ×2 (08:00→20:00)
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
[2017-08-03] MEDS: LANSOPRAZOLE SOLUTAB 30 MG TAB NG SCH (08:13)
[2017-08-03] MEDS: SODIUM CHLORIDE FLUSH BID IV FLUSH SCH ×2 (08:13→20:53)
[2017-08-03] MEDS: hydrALAZINE HCL 50 MG TAB PO SCH ×2 (08:13→20:52)
[2017-08-03] MEDS: INSULIN DETEMIR 100 UNITS/ML VIAL SQ SCH ×2 (08:13→22:21)
[2017-08-03] MEDS: ENOXAPARIN SODIUM 40 MG/0.4 ML SYRINGE SQ SCH ×2 (08:13→20:53)
[2017-08-03] MEDS: MAGNESIUM HYDROXIDE SUSP 30 ML CUP PO SCH ×2 (08:14→20:54)
[2017-08-03] MEDS: METOPROLOL TARTRATE 100 MG TAB PO SCH ×2 (08:14→20:52)
--- NOTE | 2017-08-03 11:40 | RADRPT ---
EXAM DATE/TIME: 08/03/2017 11:04 [facility] COMPARISON: CHEST SINGLE AP, July 31, 2017, 4:36. INDICATIONS : Increase Fio2 needs MEDICAL HISTORY : Hypertension. Diabetes mellitus type II. SURGICAL HISTORY : Fusion, thoracic. ENCOUNTER: Subsequent ACUITY: 1 month PAIN SCORE: Non-responsive. LOCATION: chest FINDINGS: Single AP view of the chest. Tracheostomy tube remains in place. New left lower lung consolidation versus atelectasis. No evidence of pleural effusion or pneumothorax . Cardiomediastinal silhouette within normal limits. Thoracic spine hardware is again seen. CONCLUSION: New left lower lung opacity indicating atelectasis versus patchy consolidation. Evangelist Horan MD on August 03, 2017 at 11:36 Board Certified Radiologist. This report was verified electronically.
[2017-08-03] MEDS: ACETAMINOPHEN 325 MG TAB PO PRN (16:28)
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
[2017-08-04] VITALS (18 sets, daily range): BP systolic 97–139; BP diastolic 63–86; PULSE 68–84; RESP 20–28; TEMP 97.7–101.1; O2SAT 95–100
[2017-08-04] MEDS: INSULIN ASPART SUPPLEMENTAL SCALE SQ SCH ×4 (00:33→17:19)
[2017-08-04] MEDS: CHLORHEXIDINE GLUCONATE 2 % 1 PACK (2 CLOTHS) TOP SCH (04:00)
[2017-08-04 04:19] LABS: AUTOMATED NEUTROPHIL # 10.6 TH/MM3 (1.8-7.7); BASOPHIL % 0.2 % (0.0-2.0); EOSINOPHIL # 0.2 TH/MM3 (0-0.4); EOSINOPHIL % 1.6 % (0.0-4.0); HEMATOCRIT 29.2 % (39.0-51.0); HEMOGLOBIN 9.4 GM/DL (13.0-17.0); LYMPH % 12.8 % (9.0-44.0); LYMPHOCYTE # 1.7 TH/MM3 (1.0-4.8); MEAN CELL VOLUME 86.8 FL (80.0-100.0); MEAN CORPUSCULAR HEMOGLOBIN 27.9 PG (27.0-34.0); MEAN CORPUSCULAR HGB CONC 32.1 % (32.0-36.0); MEAN PLATELET VOLUME 9.9 FL (7.0-11.0); MONO % 5.3 % (0.0-8.0); MONOCYTE # 0.7 TH/MM3 (0-0.9); NEUT % 80.1 % (16.0-70.0); PLATELET COUNT 310 TH/MM3 (150-450); RED BLOOD COUNT 3.36 MIL/MM3 (4.50-5.90); RED CELL DISTRIBUTION WIDTH 16.9 % (11.6-17.2); WHITE BLOOD COUNT 13.3 TH/MM3 (4.0-11.0)
[2017-08-04 05:05] LABS: ALBUMIN 1.8 GM/DL (3.4-5.0); ALKALINE PHOSPHATASE 157 U/L (45-117); ALT (GPT) 30 U/L (12-78); AST (GOT) 19 U/L (15-37); BICARBONATE 22.8 MEQ/L (21.0-32.0); BLOOD UREA NITROGEN 38 MG/DL (7-18); CALCIUM 8.1 MG/DL (8.5-10.1); CHLORIDE 112 MEQ/L (98-107); GLOMERULAR FILTRATION RATE 48 ML/MIN (>89); GLUCOSE,RANDOM 155 MG/DL (74-106); SODIUM (NA) 146 MEQ/L (136-145); TOTAL BILIRUBIN ADULT 0.4 MG/DL (0.2-1.0); TOTAL PROTEIN 7.1 GM/DL (6.4-8.2)
[2017-08-04] MEDS: PIPERACIL-TAZO 3.375 GM PREMIX 50 ML IV SCH ×4 (05:45→22:26)
[2017-08-04] MEDS: CHLORHEXIDINE 0.12% (ORAL KIT) 15 ML CUP MT SCH ×2 (08:00→20:00)
[2017-08-04] MEDS: MAGNESIUM HYDROXIDE SUSP 30 ML CUP PO SCH ×2 (08:05→20:16)
[2017-08-04] MEDS: ENOXAPARIN SODIUM 40 MG/0.4 ML SYRINGE SQ SCH ×2 (08:05→21:06)
[2017-08-04] MEDS: METOPROLOL TARTRATE 100 MG TAB PO SCH ×2 (08:05→21:05)
[2017-08-04] MEDS: hydrALAZINE HCL 50 MG TAB PO SCH ×2 (08:05→21:05)
[2017-08-04] MEDS: LANSOPRAZOLE SOLUTAB 30 MG TAB NG SCH (08:05)
[2017-08-04] MEDS: INSULIN DETEMIR 100 UNITS/ML VIAL SQ SCH ×2 (08:06→21:05)
[2017-08-04] MEDS: AMANTADINE HCL SOLN 100 MG/10 ML UDC PO SCH ×2 (08:08→12:00)
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
[2017-08-04] MEDS: SODIUM CHLORIDE FLUSH BID IV FLUSH SCH ×2 (09:00→21:04)
[2017-08-04] MEDS: BACITRACIN TOP OINT 15 GM TUBE TOPICAL SCH ×3 (09:45→22:26)
[2017-08-04] MEDS ORDERED: HALOPERIDOL LACTATE 5 MG/ML AMP IV PUSH PRN (09:45)
[2017-08-04] MEDS: FREE WATER G-TUBE SCH ×3 (12:00→20:00)
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
[2017-08-04] MEDS: ACETAMINOPHEN 325 MG TAB PO PRN (22:26)
[2017-08-05] VITALS (18 sets, daily range): BP systolic 127–164; BP diastolic 73–92; PULSE 61–81; RESP 16–33; TEMP 98.2–100.9; O2SAT 97–100
[2017-08-05] MEDS: INSULIN ASPART SUPPLEMENTAL SCALE SQ SCH ×5 (00:39→23:38)
[2017-08-05] MEDS: FREE WATER G-TUBE SCH ×7 (04:00→23:37)
[2017-08-05] MEDS: CHLORHEXIDINE GLUCONATE 2 % 1 PACK (2 CLOTHS) TOP SCH ×2 (04:00→19:12)
[2017-08-05] MEDS: RESP: ALBUTEROL 2.5 MG/IPRATROPIUM 0.5 MG NEB (PRN) NEB (04:24)
[2017-08-05] MEDS: PIPERACIL-TAZO 3.375 GM PREMIX 50 ML IV SCH ×4 (04:48→23:39)
[2017-08-05] MEDS: BACITRACIN TOP OINT 15 GM TUBE TOPICAL SCH ×3 (06:00→20:34)
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
[2017-08-05 06:51] LABS: AUTOMATED NEUTROPHIL # 8.6 TH/MM3 (1.8-7.7); BASOPHIL % 0.4 % (0.0-2.0); EOSINOPHIL # 0.4 TH/MM3 (0-0.4); EOSINOPHIL % 3.3 % (0.0-4.0); HEMATOCRIT 29.2 % (39.0-51.0); HEMOGLOBIN 9.4 GM/DL (13.0-17.0); LYMPH % 15.9 % (9.0-44.0); LYMPHOCYTE # 1.8 TH/MM3 (1.0-4.8); MEAN CELL VOLUME 88.5 FL (80.0-100.0); MEAN CORPUSCULAR HEMOGLOBIN 28.4 PG (27.0-34.0); MEAN CORPUSCULAR HGB CONC 32.1 % (32.0-36.0); MEAN PLATELET VOLUME 9.4 FL (7.0-11.0); MONO % 6.6 % (0.0-8.0); MONOCYTE # 0.8 TH/MM3 (0-0.9); NEUT % 73.8 % (16.0-70.0); PLATELET COUNT 249 TH/MM3 (150-450); RED CELL DISTRIBUTION WIDTH 16.8 % (11.6-17.2); WHITE BLOOD COUNT 11.6 TH/MM3 (4.0-11.0)
[2017-08-05 07:23] LABS: ALBUMIN 1.8 GM/DL (3.4-5.0); ALT (GPT) 31 U/L (12-78); AST (GOT) 21 U/L (15-37); BICARBONATE 23.3 MEQ/L (21.0-32.0); BLOOD UREA NITROGEN 35 MG/DL (7-18); CALCIUM 8.2 MG/DL (8.5-10.1); CHLORIDE 111 MEQ/L (98-107); CREATININE 1.14 MG/DL (0.60-1.30); GLOMERULAR FILTRATION RATE 66 ML/MIN (>89); GLUCOSE,RANDOM 195 MG/DL (74-106); SODIUM (NA) 142 MEQ/L (136-145)
[2017-08-05 07:25] LABS: ALKALINE PHOSPHATASE 146 U/L (45-117); TOTAL BILIRUBIN ADULT 0.3 MG/DL (0.2-1.0); TOTAL PROTEIN 7.1 GM/DL (6.4-8.2)
[2017-08-05] MEDS: AMANTADINE HCL SOLN 100 MG/10 ML UDC PO SCH ×2 (08:47→11:46)
[2017-08-05] MEDS: hydrALAZINE HCL 50 MG TAB PO SCH ×2 (08:47→20:33)
[2017-08-05] MEDS: MAGNESIUM HYDROXIDE SUSP 30 ML CUP PO SCH ×2 (08:47→20:33)
[2017-08-05] MEDS: LANSOPRAZOLE SOLUTAB 30 MG TAB NG SCH (08:48)
[2017-08-05] MEDS: SODIUM CHLORIDE FLUSH BID IV FLUSH SCH ×2 (08:48→20:34)
[2017-08-05] MEDS: INSULIN DETEMIR 100 UNITS/ML VIAL SQ SCH ×2 (08:48→21:21)
[2017-08-05] MEDS: METOPROLOL TARTRATE 100 MG TAB PO SCH ×2 (08:48→20:33)
[2017-08-05] MEDS: CHLORHEXIDINE 0.12% (ORAL KIT) 15 ML CUP MT SCH ×2 (08:48→20:00)
[2017-08-05] MEDS: ENOXAPARIN SODIUM 40 MG/0.4 ML SYRINGE SQ SCH ×2 (08:48→20:33)
[2017-08-05] MEDS: oxyCODONE HCL ORAL CONC 5 MG/0.25 ML SYRINGE PO PRN (09:54)
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
[2017-08-05] MEDS: ACETAMINOPHEN 325 MG TAB PO PRN (20:33)
[2017-08-06] VITALS (17 sets, daily range): BP systolic 102–162; BP diastolic 61–87; PULSE 69–87; RESP 18–40; TEMP 97.8–101.1; O2SAT 93–100
[2017-08-06] MEDS: FREE WATER G-TUBE SCH ×5 (04:00→20:00)
[2017-08-06] MEDS: PIPERACIL-TAZO 3.375 GM PREMIX 50 ML IV SCH ×2 (05:01→11:19)
[2017-08-06] MEDS: BACITRACIN TOP OINT 15 GM TUBE TOPICAL SCH ×3 (05:01→20:57)
[2017-08-06] MEDS: ACETAMINOPHEN 325 MG TAB PO PRN (05:02)
[2017-08-06] MEDS: INSULIN ASPART SUPPLEMENTAL SCALE SQ SCH ×3 (05:39→18:00)
[2017-08-06] MEDS: CHLORHEXIDINE 0.12% (ORAL KIT) 15 ML CUP MT SCH ×2 (08:01→20:57)
[2017-08-06] MEDS: METOPROLOL TARTRATE 100 MG TAB PO SCH ×2 (08:02→20:55)
[2017-08-06] MEDS: LANSOPRAZOLE SOLUTAB 30 MG TAB NG SCH (08:02)
[2017-08-06] MEDS: SODIUM CHLORIDE FLUSH BID IV FLUSH SCH ×2 (08:02→20:57)
[2017-08-06] MEDS: hydrALAZINE HCL 50 MG TAB PO SCH ×2 (08:02→20:55)
[2017-08-06] MEDS: AMANTADINE HCL SOLN 100 MG/10 ML UDC PO SCH ×2 (08:02→12:10)
[2017-08-06] MEDS: MAGNESIUM HYDROXIDE SUSP 30 ML CUP PO SCH ×2 (08:02→20:57)
[2017-08-06] MEDS: ENOXAPARIN SODIUM 40 MG/0.4 ML SYRINGE SQ SCH ×2 (08:02→20:56)
[2017-08-06] MEDS: INSULIN DETEMIR 100 UNITS/ML VIAL SQ SCH ×2 (08:03→20:56)
[2017-08-06] MEDS: RESP: ALBUTEROL 2.5 MG/IPRATROPIUM 0.5 MG NEB (PRN) NEB (08:56)
[2017-08-06] MEDS ORDERED: Vancomycin Consult Pharmacy 1 EA OTHER SCH (10:15)
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
[2017-08-06] MEDS: VANCOMYCIN INJ 2,000 MG in SODIUM CHLORID 0.9% 500 ML INJ 500 ML IV SCH (12:10)
[2017-08-06 12:19] LABS: BILIRUBIN, URINE NEG (NEG); BLOOD, URINE SMALL (NEG); GLUCOSE,URINE 70 mg/dL (NEG); KETONE, URINE NEG (NEG); MUCUS URINE FEW /lpf (OCC); NITRITE,URINE NEG (NEG); PH, URINE 6.5 (5.0-8.5); URINE COLOR YELLOW (YELLW/STRAW); URINE LEUKOCYTE ESTERASE NEG (NEG)
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
[2017-08-06] MEDS: LEVOFLOXACIN 500 MG PREMIX INJ 100 ML IV SCH (17:01)
[2017-08-07] VITALS (17 sets, daily range): BP systolic 113–143; BP diastolic 68–87; PULSE 72–90; RESP 20–26; TEMP 99.3–102.7; O2SAT 93–99
[2017-08-07] MEDS: INSULIN ASPART SUPPLEMENTAL SCALE SQ SCH ×4 (00:45→18:00)
[2017-08-07] MEDS: FREE WATER G-TUBE SCH ×6 (03:33→20:00)
[2017-08-07] MEDS: CHLORHEXIDINE GLUCONATE 2 % 1 PACK (2 CLOTHS) TOP SCH (04:00)
[2017-08-07] MEDS: BACITRACIN TOP OINT 15 GM TUBE TOPICAL SCH ×3 (06:00→21:03)
[2017-08-07] MEDS: AMANTADINE HCL SOLN 100 MG/10 ML UDC PO SCH ×2 (07:01→12:00)
[2017-08-07] MEDS: CHLORHEXIDINE 0.12% (ORAL KIT) 15 ML CUP MT SCH ×2 (08:00→20:00)
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
[2017-08-07] MEDS: SODIUM CHLORIDE FLUSH BID IV FLUSH SCH ×2 (08:58→20:56)
[2017-08-07] MEDS: ACETAMINOPHEN 325 MG TAB PO PRN (08:58)
[2017-08-07] MEDS: hydrALAZINE HCL 50 MG TAB PO SCH ×2 (08:58→20:56)
[2017-08-07] MEDS: MAGNESIUM HYDROXIDE SUSP 30 ML CUP PO SCH ×2 (08:58→20:56)
[2017-08-07] MEDS: METOPROLOL TARTRATE 100 MG TAB PO SCH ×2 (08:58→20:55)
[2017-08-07] MEDS: LANSOPRAZOLE SOLUTAB 30 MG TAB NG SCH (08:58)
[2017-08-07] MEDS: ENOXAPARIN SODIUM 40 MG/0.4 ML SYRINGE SQ SCH ×2 (08:59→21:04)
[2017-08-07] MEDS: INSULIN DETEMIR 100 UNITS/ML VIAL SQ SCH ×2 (09:00→21:07)
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
[2017-08-07] MEDS: VANCOMYCIN INJ 2,000 MG in SODIUM CHLORID 0.9% 500 ML INJ 500 ML IV SCH (12:31)
[2017-08-07] MEDS: PIPERACIL-TAZO 4.5 GM PREMIX 100 ML IV SCH ×2 (14:00→20:56)
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
[2017-08-07] MEDS: LEVOFLOXACIN 500 MG PREMIX INJ 100 ML IV SCH (16:00)
[2017-08-07] MEDS: COLLAGENASE OINT 30 GM TUBE TOPICAL SCH (17:00)
[2017-08-08] VITALS (14 sets, daily range): BP systolic 122–155; BP diastolic 77–87; PULSE 72–80; RESP 19–28; TEMP 99.9–102.3; O2SAT 95–100
[2017-08-08] MEDS: CHLORHEXIDINE GLUCONATE 2 % 1 PACK (2 CLOTHS) TOP SCH (01:36)
[2017-08-08] MEDS: PIPERACIL-TAZO 4.5 GM PREMIX 100 ML IV SCH ×2 (02:14→08:37)
[2017-08-08] MEDS: RESP: ALBUTEROL 2.5 MG/IPRATROPIUM 0.5 MG NEB (PRN) NEB ×2 (03:50→20:41)
[2017-08-08] MEDS: FREE WATER G-TUBE SCH ×6 (04:00→20:00)
[2017-08-08] MEDS: ACETAMINOPHEN 325 MG TAB PO PRN (04:40)
[2017-08-08] MEDS: BACITRACIN TOP OINT 15 GM TUBE TOPICAL SCH ×3 (05:00→21:29)
[2017-08-08] MEDS: INSULIN ASPART SUPPLEMENTAL SCALE SQ SCH ×4 (06:25→18:08)
[2017-08-08] MEDS: CHLORHEXIDINE 0.12% (ORAL KIT) 15 ML CUP MT SCH ×2 (08:00→20:00)
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
[2017-08-08] MEDS: LANSOPRAZOLE SOLUTAB 30 MG TAB NG SCH (08:37)
[2017-08-08] MEDS: ENOXAPARIN SODIUM 40 MG/0.4 ML SYRINGE SQ SCH ×2 (08:37→21:28)
[2017-08-08] MEDS: METOPROLOL TARTRATE 100 MG TAB PO SCH ×2 (08:37→21:27)
[2017-08-08] MEDS: hydrALAZINE HCL 50 MG TAB PO SCH ×2 (08:37→21:27)
[2017-08-08] MEDS: AMANTADINE HCL SOLN 100 MG/10 ML UDC PO SCH ×2 (08:37→14:44)
[2017-08-08] MEDS: SODIUM CHLORIDE FLUSH BID IV FLUSH SCH ×2 (08:37→21:29)
[2017-08-08] MEDS: COLLAGENASE OINT 30 GM TUBE TOPICAL SCH (08:38)
[2017-08-08] MEDS: MAGNESIUM HYDROXIDE SUSP 30 ML CUP PO SCH ×2 (08:38→21:00)
[2017-08-08] MEDS: INSULIN DETEMIR 100 UNITS/ML VIAL SQ SCH ×2 (08:38→21:28)
--- NOTE | 2017-08-08 10:16 | RADRPT ---
EXAM DATE/TIME: 08/08/2017 09:54 [facility] COMPARISON: CHEST SINGLE AP, August 05, 2017, 4:53. INDICATIONS : Shortness of breath. MEDICAL HISTORY : Hypertension. Diabetes mellitus type II. SURGICAL HISTORY : Fusion, thoracic. ENCOUNTER: Subsequent ACUITY: 1 day PAIN SCORE: Non-responsive. LOCATION: Bilateral chest FINDINGS: Tracheostomy remains in place with evidence of prior mid to lower thoracic spine surgery. Right lung is clear. Left lung base atelectasis or consolidation retrocardiac is unchanged. CONCLUSION: Stable chest Davi Tipton MD on August 08, 2017 at 10:12 Board Certified Radiologist. This report was verified electronically.
[2017-08-08] MEDS ORDERED: ASP: Path resistant to other antimicrobials, culture proven PRN (12:30)
[2017-08-08] MEDS ORDERED: MISCELLANEOUS PHARMACY INFORMATION XX PRN ×2 (12:30)
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
[2017-08-08] MEDS: IMIPENEM/CILASTATIN INJ 500 MG in SODIUM CHLORIDE 0.9% INJ 100 ML IV SCH ×2 (14:44→21:28)
[2017-08-08] MEDS: metroNIDAZOLE 500 MG TAB PO SCH ×2 (14:44→21:27)
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
[2017-08-09] VITALS (13 sets, daily range): BP systolic 109–161; BP diastolic 66–92; PULSE 69–78; RESP 19–28; TEMP 98.4–101.8; O2SAT 97–100
[2017-08-09] MEDS: IMIPENEM/CILASTATIN INJ 500 MG in SODIUM CHLORIDE 0.9% INJ 100 ML IV SCH ×4 (02:33→21:33)
[2017-08-09] MEDS: ACETAMINOPHEN 325 MG TAB PO PRN (03:06)
[2017-08-09 03:54] LABS: AUTOMATED NEUTROPHIL # 6.3 TH/MM3 (1.8-7.7); BASOPHIL % 0.4 % (0.0-2.0); EOSINOPHIL # 0.2 TH/MM3 (0-0.4); EOSINOPHIL % 2.3 % (0.0-4.0); HEMATOCRIT 27.7 % (39.0-51.0); LYMPH % 16.6 % (9.0-44.0); LYMPHOCYTE # 1.5 TH/MM3 (1.0-4.8); MEAN CELL VOLUME 86.2 FL (80.0-100.0); MEAN CORPUSCULAR HEMOGLOBIN 28.2 PG (27.0-34.0); MEAN CORPUSCULAR HGB CONC 32.7 % (32.0-36.0); MEAN PLATELET VOLUME 9.6 FL (7.0-11.0); MONO % 10.3 % (0.0-8.0); MONOCYTE # 0.9 TH/MM3 (0-0.9); NEUT % 70.4 % (16.0-70.0); PLATELET COUNT 276 TH/MM3 (150-450); RED BLOOD COUNT 3.21 MIL/MM3 (4.50-5.90); RED CELL DISTRIBUTION WIDTH 17.4 % (11.6-17.2); WHITE BLOOD COUNT 8.9 TH/MM3 (4.0-11.0)
[2017-08-09 03:58] LABS: BICARBONATE 24.4 MEQ/L (21.0-32.0); CALCIUM 8.4 MG/DL (8.5-10.1); CREATININE 0.82 MG/DL (0.60-1.30)
[2017-08-09] MEDS: FREE WATER G-TUBE SCH ×6 (04:00→20:00)
[2017-08-09] MEDS: CHLORHEXIDINE GLUCONATE 2 % 1 PACK (2 CLOTHS) TOP SCH (04:00)
[2017-08-09] MEDS: BACITRACIN TOP OINT 15 GM TUBE TOPICAL SCH ×3 (06:00→22:00)
[2017-08-09] MEDS: metroNIDAZOLE 500 MG TAB PO SCH (06:00)
[2017-08-09] MEDS: INSULIN ASPART SUPPLEMENTAL SCALE SQ SCH ×4 (06:00→18:00)
[2017-08-09] MEDS: AMANTADINE HCL SOLN 100 MG/10 ML UDC PO SCH ×2 (06:25→13:15)
[2017-08-09] MEDS: CHLORHEXIDINE 0.12% (ORAL KIT) 15 ML CUP MT SCH ×2 (08:00→20:00)
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
[2017-08-09] MEDS: SODIUM CHLORIDE FLUSH BID IV FLUSH SCH ×2 (09:00→20:57)
[2017-08-09] MEDS: MAGNESIUM HYDROXIDE SUSP 30 ML CUP PO SCH ×2 (09:00→20:56)
[2017-08-09] MEDS: COLLAGENASE OINT 30 GM TUBE TOPICAL SCH (09:00)
[2017-08-09] MEDS: ENOXAPARIN SODIUM 40 MG/0.4 ML SYRINGE SQ SCH ×2 (10:06→20:57)
[2017-08-09] MEDS: LANSOPRAZOLE SOLUTAB 30 MG TAB NG SCH (10:07)
[2017-08-09] MEDS: INSULIN DETEMIR 100 UNITS/ML VIAL SQ SCH ×2 (10:07→20:56)
[2017-08-09] MEDS: hydrALAZINE HCL 50 MG TAB PO SCH ×2 (10:07→20:57)
[2017-08-09] MEDS: METOPROLOL TARTRATE 100 MG TAB PO SCH ×2 (10:07→20:57)
[2017-08-09] MEDS ORDERED: PHARMACY ORDERED LAB ONE (11:45)
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
[2017-08-10] VITALS (18 sets, daily range): BP systolic 82–163; BP diastolic 57–97; PULSE 66–80; RESP 20–26; TEMP 99.9–101.3; O2SAT 94–100
[2017-08-10] MEDS: INSULIN ASPART SUPPLEMENTAL SCALE SQ SCH ×4 (00:47→18:44)
[2017-08-10] MEDS: IMIPENEM/CILASTATIN INJ 500 MG in SODIUM CHLORIDE 0.9% INJ 100 ML IV SCH ×4 (02:03→19:35)
[2017-08-10] MEDS: CHLORHEXIDINE GLUCONATE 2 % 1 PACK (2 CLOTHS) TOP SCH (03:48)
[2017-08-10] MEDS: FREE WATER G-TUBE SCH ×6 (04:00→19:35)
[2017-08-10 04:13] LABS: AUTOMATED NEUTROPHIL # 3.9 TH/MM3 (1.8-7.7); BASOPHIL # 0.1 TH/MM3 (0-0.2); BASOPHIL % 0.8 % (0.0-2.0); EOSINOPHIL # 0.2 TH/MM3 (0-0.4); EOSINOPHIL % 3.6 % (0.0-4.0); HEMATOCRIT 28.8 % (39.0-51.0); HEMOGLOBIN 9.5 GM/DL (13.0-17.0); LYMPHOCYTE # 1.6 TH/MM3 (1.0-4.8); MEAN CELL VOLUME 85.2 FL (80.0-100.0); MEAN CORPUSCULAR HGB CONC 32.9 % (32.0-36.0); MEAN PLATELET VOLUME 9.7 FL (7.0-11.0); MONO % 11.5 % (0.0-8.0); MONOCYTE # 0.8 TH/MM3 (0-0.9); NEUT % 59.1 % (16.0-70.0); PLATELET COUNT 315 TH/MM3 (150-450); RED BLOOD COUNT 3.39 MIL/MM3 (4.50-5.90); RED CELL DISTRIBUTION WIDTH 17.2 % (11.6-17.2); WHITE BLOOD COUNT 6.6 TH/MM3 (4.0-11.0)
[2017-08-10 04:42] LABS: ALBUMIN 1.8 GM/DL (3.4-5.0); ALT (GPT) 49 U/L (12-78); AST (GOT) 29 U/L (15-37); BICARBONATE 24.3 MEQ/L (21.0-32.0); BLOOD UREA NITROGEN 24 MG/DL (7-18); CALCIUM 8.4 MG/DL (8.5-10.1); CHLORIDE 106 MEQ/L (98-107); CREATININE 0.78 MG/DL (0.60-1.30); GLOMERULAR FILTRATION RATE 103 ML/MIN (>89); GLUCOSE,RANDOM 165 MG/DL (74-106); SODIUM (NA) 138 MEQ/L (136-145)
[2017-08-10 04:45] LABS: ALKALINE PHOSPHATASE 133 U/L (45-117); TOTAL BILIRUBIN ADULT 0.2 MG/DL (0.2-1.0); TOTAL PROTEIN 7.3 GM/DL (6.4-8.2)
[2017-08-10] MEDS: BACITRACIN TOP OINT 15 GM TUBE TOPICAL SCH ×3 (05:33→21:13)
[2017-08-10] MEDS: oxyCODONE HCL ORAL CONC 5 MG/0.25 ML SYRINGE PO PRN ×2 (06:32→13:05)
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
[2017-08-10] MEDS: SODIUM CHLORIDE FLUSH BID IV FLUSH SCH ×2 (08:42→21:04)
[2017-08-10] MEDS: CHLORHEXIDINE 0.12% (ORAL KIT) 15 ML CUP MT SCH ×2 (08:42→19:35)
[2017-08-10] MEDS: LANSOPRAZOLE SOLUTAB 30 MG TAB NG SCH (08:42)
[2017-08-10] MEDS: hydrALAZINE HCL 50 MG TAB PO SCH ×2 (08:42→21:00)
[2017-08-10] MEDS: AMANTADINE HCL SOLN 100 MG/10 ML UDC PO SCH ×2 (08:43→13:04)
[2017-08-10] MEDS: METOPROLOL TARTRATE 100 MG TAB PO SCH ×2 (08:43→21:00)
[2017-08-10] MEDS: INSULIN DETEMIR 100 UNITS/ML VIAL SQ SCH ×2 (08:43→21:13)
[2017-08-10] MEDS: COLLAGENASE OINT 30 GM TUBE TOPICAL SCH (08:44)
[2017-08-10] MEDS: MAGNESIUM HYDROXIDE SUSP 30 ML CUP PO SCH ×2 (08:44→21:00)
[2017-08-10] MEDS: ENOXAPARIN SODIUM 40 MG/0.4 ML SYRINGE SQ SCH ×2 (08:44→21:13)
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
[2017-08-10] MEDS ORDERED: Vancomycin Consult Pharmacy 1 EA OTHER SCH (17:15)
[2017-08-10] MEDS: VANCOMYCIN INJ 1,750 MG in SODIUM CHLORID 0.9% 500 ML INJ 500 ML IV SCH (21:17)
[2017-08-11] VITALS (20 sets, daily range): BP systolic 97–147; BP diastolic 56–85; PULSE 76–93; RESP 23–27; TEMP 99–100.4; O2SAT 98–100
[2017-08-11] MEDS: FREE WATER G-TUBE SCH ×6 (00:21→20:19)
[2017-08-11] MEDS: INSULIN ASPART SUPPLEMENTAL SCALE SQ SCH ×4 (00:21→18:00)
[2017-08-11] MEDS: IMIPENEM/CILASTATIN INJ 500 MG in SODIUM CHLORIDE 0.9% INJ 100 ML IV SCH ×4 (01:28→20:24)
[2017-08-11] MEDS: CHLORHEXIDINE GLUCONATE 2 % 1 PACK (2 CLOTHS) TOP SCH (03:58)
[2017-08-11] MEDS: BACITRACIN TOP OINT 15 GM TUBE TOPICAL SCH ×3 (05:09→21:28)
[2017-08-11] MEDS: ENOXAPARIN SODIUM 40 MG/0.4 ML SYRINGE SQ SCH ×2 (07:48→21:28)
[2017-08-11] MEDS: SODIUM CHLORIDE FLUSH BID IV FLUSH SCH ×2 (07:48→21:26)
[2017-08-11] MEDS: LANSOPRAZOLE SOLUTAB 30 MG TAB NG SCH (07:48)
[2017-08-11] MEDS: CHLORHEXIDINE 0.12% (ORAL KIT) 15 ML CUP MT SCH ×2 (07:49→20:24)
[2017-08-11] MEDS: AMANTADINE HCL SOLN 100 MG/10 ML UDC PO SCH ×2 (07:49→11:28)
[2017-08-11] MEDS: METOPROLOL TARTRATE 100 MG TAB PO SCH (07:49)
[2017-08-11] MEDS: MAGNESIUM HYDROXIDE SUSP 30 ML CUP PO SCH ×2 (07:49→21:00)
[2017-08-11] MEDS: hydrALAZINE HCL 50 MG TAB PO SCH (07:49)
[2017-08-11] MEDS: INSULIN DETEMIR 100 UNITS/ML VIAL SQ SCH ×2 (07:50→21:28)
[2017-08-11] MEDS: VANCOMYCIN INJ 1,750 MG in SODIUM CHLORID 0.9% 500 ML INJ 500 ML IV SCH ×2 (07:50→21:27)
[2017-08-11] MEDS: COLLAGENASE OINT 30 GM TUBE TOPICAL SCH (07:50)
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
[2017-08-11] MEDS: METOPROLOL TARTRATE 50 MG TAB PO SCH (21:27)
[2017-08-12] VITALS (14 sets, daily range): BP systolic 110–159; BP diastolic 65–93; PULSE 72–108; RESP 17–25; TEMP 99–102.9; O2SAT 96–100
[2017-08-12] MEDS: FREE WATER G-TUBE SCH ×6 (00:54→19:35)
[2017-08-12] MEDS: IMIPENEM/CILASTATIN INJ 500 MG in SODIUM CHLORIDE 0.9% INJ 100 ML IV SCH ×4 (02:32→21:50)
[2017-08-12] MEDS: CHLORHEXIDINE GLUCONATE 2 % 1 PACK (2 CLOTHS) TOP SCH (04:00)
[2017-08-12] MEDS: INSULIN ASPART SUPPLEMENTAL SCALE SQ SCH ×4 (05:22→18:00)
[2017-08-12] MEDS: BACITRACIN TOP OINT 15 GM TUBE TOPICAL SCH ×3 (05:23→21:52)
[2017-08-12] MEDS: AMANTADINE HCL SOLN 100 MG/10 ML UDC PO SCH ×2 (06:58→12:00)
[2017-08-12] MEDS: CHLORHEXIDINE 0.12% (ORAL KIT) 15 ML CUP MT SCH ×2 (08:00→21:51)
[2017-08-12] MEDS ORDERED: PHARMACY ORDERED LAB ONE (08:45)
[2017-08-12] MEDS: INSULIN DETEMIR 100 UNITS/ML VIAL SQ SCH ×2 (08:52→21:52)
[2017-08-12] MEDS: ENOXAPARIN SODIUM 40 MG/0.4 ML SYRINGE SQ SCH ×2 (08:52→21:50)
[2017-08-12] MEDS: MAGNESIUM HYDROXIDE SUSP 30 ML CUP PO SCH ×2 (08:52→21:00)
[2017-08-12] MEDS: SODIUM CHLORIDE FLUSH BID IV FLUSH SCH ×2 (08:52→21:51)
[2017-08-12] MEDS: METOPROLOL TARTRATE 50 MG TAB PO SCH ×2 (08:52→21:50)
[2017-08-12] MEDS: LANSOPRAZOLE SOLUTAB 30 MG TAB NG SCH (08:52)
[2017-08-12] MEDS: COLLAGENASE OINT 30 GM TUBE TOPICAL SCH (09:00)
[2017-08-12 10:30] LABS: CREATININE 0.73 MG/DL (0.60-1.30)
[2017-08-12 10:31] LABS: VANCOMYCIN TROUGH 27.8 MCG/ML (5.0-10.0)
[2017-08-12] MEDS: VANCOMYCIN INJ 1,750 MG in SODIUM CHLORID 0.9% 500 ML INJ 500 ML IV SCH (10:47)
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
[2017-08-12] MEDS: oxyCODONE HCL ORAL CONC 5 MG/0.25 ML SYRINGE PO PRN (14:00)
[2017-08-12] MEDS: RESP: ALBUTEROL 2.5 MG/IPRATROPIUM 0.5 MG NEB (PRN) NEB ×2 (16:50→20:42)
[2017-08-12] MEDS: ACETAMINOPHEN 325 MG TAB PO PRN (18:15)
[2017-08-12] MEDS: SODIUM CHLOR 0.9% 1000 ML INJ 1,000 ML IV SCH (19:34)
[2017-08-12] MEDS: ACETAMINOPHEN 1000 MG/100 ML 100 ML IV SCH (19:35)
[2017-08-13] VITALS (13 sets, daily range): BP systolic 98–138; BP diastolic 56–87; PULSE 76–126; RESP 16–33; TEMP 99.7–101.8; O2SAT 73–100
[2017-08-13] MEDS: INSULIN ASPART SUPPLEMENTAL SCALE SQ SCH ×4 (01:00→18:00)
[2017-08-13] MEDS: IMIPENEM/CILASTATIN INJ 500 MG in SODIUM CHLORIDE 0.9% INJ 100 ML IV SCH ×2 (02:14→08:03)
[2017-08-13] MEDS: ACETAMINOPHEN 1000 MG/100 ML 100 ML IV SCH ×4 (02:14→21:43)
[2017-08-13] MEDS: CHLORHEXIDINE GLUCONATE 2 % 1 PACK (2 CLOTHS) TOP SCH ×2 (04:00→20:07)
[2017-08-13] MEDS: FREE WATER G-TUBE SCH ×6 (04:00→21:44)
[2017-08-13 05:00] LABS: AUTOMATED NEUTROPHIL # 10.1 TH/MM3 (1.8-7.7); BASOPHIL # 0.1 TH/MM3 (0-0.2); BASOPHIL % 0.5 % (0.0-2.0); EOSINOPHIL # 0.1 TH/MM3 (0-0.4); EOSINOPHIL % 0.9 % (0.0-4.0); HEMATOCRIT 28.3 % (39.0-51.0); LYMPH % 13.2 % (9.0-44.0); LYMPHOCYTE # 1.7 TH/MM3 (1.0-4.8); MEAN CELL VOLUME 84.9 FL (80.0-100.0); MEAN CORPUSCULAR HGB CONC 31.8 % (32.0-36.0); MEAN PLATELET VOLUME 9.4 FL (7.0-11.0); MONO % 8.6 % (0.0-8.0); MONOCYTE # 1.1 TH/MM3 (0-0.9); NEUT % 76.8 % (16.0-70.0); PLATELET COUNT 336 TH/MM3 (150-450); RED BLOOD COUNT 3.33 MIL/MM3 (4.50-5.90); RED CELL DISTRIBUTION WIDTH 17.4 % (11.6-17.2); WHITE BLOOD COUNT 13.1 TH/MM3 (4.0-11.0)
[2017-08-13 05:30] LABS: ALBUMIN 1.7 GM/DL (3.4-5.0); ALT (GPT) 41 U/L (12-78); AST (GOT) 25 U/L (15-37); BICARBONATE 24.3 MEQ/L (21.0-32.0); BLOOD UREA NITROGEN 19 MG/DL (7-18); CALCIUM 7.7 MG/DL (8.5-10.1); CHLORIDE 106 MEQ/L (98-107); CREATININE 0.71 MG/DL (0.60-1.30); GLOMERULAR FILTRATION RATE 114 ML/MIN (>89); GLUCOSE,RANDOM 134 MG/DL (74-106); MAGNESIUM 2.1 MG/DL (1.5-2.5); PHOSPHORUS 2.2 MG/DL (2.5-4.9); SODIUM (NA) 138 MEQ/L (136-145)
[2017-08-13 05:33] LABS: ALKALINE PHOSPHATASE 138 U/L (45-117); RANDOM VANCOMYCIN 21.2 COMMENT; TOTAL BILIRUBIN ADULT 0.3 MG/DL (0.2-1.0); TOTAL PROTEIN 6.5 GM/DL (6.4-8.2)
[2017-08-13] MEDS: AMANTADINE HCL SOLN 100 MG/10 ML UDC PO SCH ×2 (06:50→14:13)
[2017-08-13] MEDS: BACITRACIN TOP OINT 15 GM TUBE TOPICAL SCH ×3 (06:50→21:46)
[2017-08-13] MEDS: SODIUM CHLOR 0.9% 1000 ML INJ 1,000 ML IV SCH ×3 (07:16→22:23)
[2017-08-13] MEDS: CHLORHEXIDINE 0.12% (ORAL KIT) 15 ML CUP MT SCH ×2 (08:00→21:44)
[2017-08-13] MEDS: oxyCODONE HCL ORAL CONC 5 MG/0.25 ML SYRINGE PO PRN (08:01)
[2017-08-13] MEDS: MAGNESIUM HYDROXIDE SUSP 30 ML CUP PO SCH ×2 (08:02→21:00)
[2017-08-13] MEDS: INSULIN DETEMIR 100 UNITS/ML VIAL SQ SCH ×2 (08:02→21:00)
[2017-08-13] MEDS: SODIUM CHLORIDE FLUSH BID IV FLUSH SCH ×2 (08:02→21:44)
[2017-08-13] MEDS: ENOXAPARIN SODIUM 40 MG/0.4 ML SYRINGE SQ SCH ×2 (08:02→21:45)
[2017-08-13] MEDS: METOPROLOL TARTRATE 50 MG TAB PO SCH ×2 (08:02→21:44)
[2017-08-13] MEDS: LANSOPRAZOLE SOLUTAB 30 MG TAB NG SCH (08:02)
[2017-08-13] MEDS: COLLAGENASE OINT 30 GM TUBE TOPICAL SCH (08:03)
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
[2017-08-13] MEDS: PIPERACIL-TAZO 4.5 GM PREMIX 100 ML IV SCH ×2 (11:25→18:39)
[2017-08-13] MEDS: MICAFUNGIN INJ 100 MG in SODIUM CHLORIDE 0.9% INJ 100 ML IV SCH (11:25)
--- NOTE | 2017-08-13 12:32 | RADRPT ---
EXAM DATE/TIME: 08/13/2017 11:49 [facility] COMPARISON: CHEST SINGLE AP, August 08, 2017, 9:54. INDICATIONS : Fever. MEDICAL HISTORY : Hypertension. Diabetes mellitus type II. SURGICAL HISTORY : Fusion, thoracic. ENCOUNTER: Subsequent ACUITY: 1 day PAIN SCORE: Non-responsive. LOCATION: Bilateral chest FINDINGS: A single view of the chest demonstrates left basilar consolidation. Heart enlarged. Tracheostomy tube unchanged. Fusion rods and screws lower thoracic spine. Osseous structures are intact. CONCLUSION: 1. Left basilar consolidation and probable small pleural effusion. Elfego Foy MD on August 13, 2017 at 12:30 Board Certified Radiologist. This report was verified electronically.
[2017-08-13] MEDS ORDERED: PROPOFOL 500 MG/50 ML INJ 50 ML ONE (13:07)
[2017-08-13] MEDS ORDERED: ROCURONIUM INJ 50 MG/5 ML VIAL ONE (13:36)
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
[2017-08-13] MEDS: PROPOFOL 1000 MG/100 ML INJ 100 ML IV PRN ×2 (14:14→18:40)
[2017-08-13] MEDS ORDERED: MIDAZOLAM HCL 5 MG/ML VIAL (1 ML) ONE (15:33)
[2017-08-13] MEDS ORDERED: MIDAZOLAM HCL 5 MG/ML VIAL (1 ML) IV ONE (16:00)
[2017-08-13] MEDS ORDERED: SODIUM CHLOR 0.9% 1000 ML INJ 2,000 ML IV ONE (16:00)
[2017-08-13] MEDS: CISATRACURIUM INJ 100 MG in SODIUM CHLOR 0.9% 250 ML INJ 250 ML IV PRN (16:13)
[2017-08-13] MEDS: MIDAZOLAM 100 MG/100 ML INJ 100 ML IV PRN (16:15)
--- NOTE | 2017-08-13 17:09 | MP ---
cc: ANTONY COPELAND MD DATE OF SURGERY 08/13/2017 PREOPERATIVE DIAGNOSES 1. Septic shock. 2. Respiratory failure. POSTOPERATIVE DIAGNOSES 1. Septic shock. 2. Respiratory failure. OPERATIVE PROCEDURE Right subclavian triple-lumen placement. SURGEON Dr. Copeland ANESTHESIA 1% Xylocaine. BLOOD LOSS Minimal. DESCRIPTION OF PROCEDURE The patient prepped and draped in usual fashion. Area filtrated with 1% Xylocaine. Needle inserted into the right subclavian vein and J-wire is guided dilator and triple-lumen placed. Triple insertion . chest x-ray obtained. Antony Copeland SJ/KK /4:31 PM /4:58 PM
[2017-08-13 17:11] LABS: BILIRUBIN, URINE NEG (NEG); BLOOD, URINE NEG (NEG); GLUCOSE,URINE NEG (NEG); KETONE, URINE TRACE mg/dL (NEG); MUCUS URINE FEW /lpf (OCC); NITRITE,URINE NEG (NEG); PH, URINE 6.5 (5.0-8.5); URINE COLOR YELLOW (YELLW/STRAW); URINE LEUKOCYTE ESTERASE NEG (NEG)
--- NOTE | 2017-08-13 18:22 | RADRPT ---
EXAM DATE/TIME: 08/13/2017 17:59 [facility] COMPARISON: CHEST SINGLE AP, August 13, 2017, 11:49. INDICATIONS : Central line placement. MEDICAL HISTORY : Hypertension. Diabetes mellitus type II. SURGICAL HISTORY : Fusion, thoracic. ENCOUNTER: Subsequent ACUITY: 1 month PAIN SCORE: 0/10 LOCATION: Bilateral chest FINDINGS: There is worsening pulmonary edema since the prior exam. Left basilar opacity is present may be due t o a combination of consolidation and or pleural effusion. Tracheostomy tube is present in satisfactor y position. Right subclavian line is present with tip overlapping the expected region of the SVC. No definite pneumothorax is seen for technique. CONCLUSION: Left basilar opacity is present may be due to a combination of consolidation and or pleural effusion and worsening pulmonary edema since the prior exam. Kaylene Sharp MD on August 13, 2017 at 18:19 Board Certified Radiologist. This report was verified electronically.
[2017-08-14] VITALS (19 sets, daily range): BP systolic 93–181; BP diastolic 55–96; PULSE 80–106; RESP 14–19; TEMP 98.4–100.8; O2SAT 92–100
[2017-08-14] MEDS: SODIUM CHLOR 0.9% 1000 ML INJ 1,000 ML IV SCH ×7 (00:08→23:23)
[2017-08-14] MEDS: PIPERACIL-TAZO 4.5 GM PREMIX 100 ML IV SCH ×4 (00:57→16:57)
[2017-08-14] MEDS: FREE WATER G-TUBE SCH ×6 (00:57→19:54)
[2017-08-14] MEDS: ACETAMINOPHEN 1000 MG/100 ML 100 ML IV SCH (02:29)
[2017-08-14] MEDS: CISATRACURIUM INJ 100 MG in SODIUM CHLOR 0.9% 250 ML INJ 250 ML IV PRN ×6 (04:09→20:33)
[2017-08-14] MEDS: INSULIN ASPART SUPPLEMENTAL SCALE SQ SCH ×4 (06:00→16:58)
[2017-08-14] MEDS: AMANTADINE HCL SOLN 100 MG/10 ML UDC PO SCH ×2 (06:27→13:47)
[2017-08-14] MEDS: BACITRACIN TOP OINT 15 GM TUBE TOPICAL SCH ×3 (06:27→21:02)
[2017-08-14] MEDS: CHLORHEXIDINE 0.12% (ORAL KIT) 15 ML CUP MT SCH ×2 (08:00→19:54)
[2017-08-14] MEDS: RESP: ALBUTEROL 2.5 MG/IPRATROPIUM 0.5 MG NEB (PRN) NEB (08:05)
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
[2017-08-14] MEDS: METOPROLOL TARTRATE 50 MG TAB PO SCH ×2 (08:24→20:12)
[2017-08-14] MEDS: ENOXAPARIN SODIUM 40 MG/0.4 ML SYRINGE SQ SCH ×2 (08:24→20:12)
[2017-08-14] MEDS: LANSOPRAZOLE SOLUTAB 30 MG TAB NG SCH (08:25)
[2017-08-14] MEDS: MAGNESIUM HYDROXIDE SUSP 30 ML CUP PO SCH ×2 (09:00→19:55)
[2017-08-14] MEDS: SODIUM CHLORIDE FLUSH BID IV FLUSH SCH ×2 (09:00→20:12)
[2017-08-14] MEDS: COLLAGENASE OINT 30 GM TUBE TOPICAL SCH (09:00)
[2017-08-14] MEDS: INSULIN DETEMIR 100 UNITS/ML VIAL SQ SCH ×2 (09:00→19:55)
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
[2017-08-14] MEDS: VANCOMYCIN INJ 1,750 MG in SODIUM CHLORID 0.9% 500 ML INJ 500 ML IV SCH (10:41)
[2017-08-14] MEDS: MIDAZOLAM 100 MG/100 ML INJ 100 ML IV PRN (10:42)
[2017-08-14] MEDS: MICAFUNGIN INJ 100 MG in SODIUM CHLORIDE 0.9% INJ 100 ML IV SCH (11:00)
--- NOTE | 2017-08-14 11:02 | RADRPT ---
EXAM DATE/TIME: 08/14/2017 10:30 [facility] COMPARISON: CHEST SINGLE AP, August 13, 2017, 17:59. INDICATIONS : Shortness of breath. MEDICAL HISTORY : Hypertension. Diabetes mellitus type II. SURGICAL HISTORY : Fusion, thoracic. ENCOUNTER: Subsequent ACUITY: 1 month PAIN SCORE: Non-responsive. LOCATION: Bilateral chest FINDINGS: The heart is enlarged. Bibasilar patchiness is noted and is slightly worse on the previ ous examination. Tracheostomy tube is noted in good position above the chung. Right subclavian centr al line is stable in the superior vena cava. Hardware is noted within thoracic spine stable. CONCLUSION: Slight worsening bibasilar patchiness consistent with pneumonia and/or pulmonary jose martin a. Cardiomegaly. Nacho Cordon MD on August 14, 2017 at 10:58 Board Certified Radiologist. This report was verified electronically.
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
[2017-08-14] MEDS: CHLORHEXIDINE GLUCONATE 2 % 1 PACK (2 CLOTHS) TOP SCH (19:28)
[2017-08-14] MEDS: PROPOFOL 1000 MG/100 ML INJ 100 ML IV PRN (20:12)
[2017-08-15] VITALS (18 sets, daily range): BP systolic 103–136; BP diastolic 60–74; PULSE 72–100; RESP 10–24; TEMP 98.1–99.9; O2SAT 97–100
[2017-08-15] MEDS: PIPERACIL-TAZO 4.5 GM PREMIX 100 ML IV SCH ×5 (00:21→23:39)
[2017-08-15] MEDS: FREE WATER G-TUBE SCH ×7 (00:21→23:40)
[2017-08-15] MEDS: SODIUM CHLOR 0.9% 1000 ML INJ 1,000 ML IV SCH ×2 (03:32→18:41)
[2017-08-15] MEDS: VANCOMYCIN INJ 1,750 MG in SODIUM CHLORID 0.9% 500 ML INJ 500 ML IV SCH ×2 (03:38→21:24)
--- NOTE | 2017-08-15 05:19 | RADRPT ---
EXAM DATE/TIME: 08/15/2017 04:34 [facility] COMPARISON: CHEST SINGLE AP, August 14, 2017, 10:30. INDICATIONS : Short of breath. MEDICAL HISTORY : Hypertension. Diabetes mellitus type II. SURGICAL HISTORY : Fusion, thoracic. ENCOUNTER: Subsequent ACUITY: 1 month PAIN SCORE: 0/10 LOCATION: Bilateral chest FINDINGS: Portable AP view of the chest demonstrates a normal-sized cardiac silhouette. Right subclavian centra l line and tracheostomy are present. There is bilateral lower lungs airspace opacity stable from the prior study. No pneumothorax is visualized. CONCLUSION: Stable chest x-ray with bibasilar airspace opacities. Kory Santana MD on August 15, 2017 at 5:17 Board Certified Radiologist. This report was verified electronically.
[2017-08-15 05:32] LABS: AUTOMATED NEUTROPHIL # 10.3 TH/MM3 (1.8-7.7); BASOPHIL % 0.1 % (0.0-2.0); EOSINOPHIL # 0.5 TH/MM3 (0-0.4); EOSINOPHIL % 4.4 % (0.0-4.0); HEMATOCRIT 24.5 % (39.0-51.0); LYMPH % 6.8 % (9.0-44.0); LYMPHOCYTE # 0.9 TH/MM3 (1.0-4.8); MEAN CELL VOLUME 85.3 FL (80.0-100.0); MEAN CORPUSCULAR HGB CONC 32.8 % (32.0-36.0); MEAN PLATELET VOLUME 9.5 FL (7.0-11.0); MONOCYTE # 0.7 TH/MM3 (0-0.9); NEUT % 82.7 % (16.0-70.0); PLATELET COUNT 304 TH/MM3 (150-450); RED BLOOD COUNT 2.87 MIL/MM3 (4.50-5.90); RED CELL DISTRIBUTION WIDTH 17.6 % (11.6-17.2); WHITE BLOOD COUNT 12.4 TH/MM3 (4.0-11.0)
[2017-08-15 05:42] LABS: ALBUMIN 1.3 GM/DL (3.4-5.0); AST (GOT) 19 U/L (15-37); BLOOD UREA NITROGEN 21 MG/DL (7-18); CALCIUM 7.9 MG/DL (8.5-10.1); CHLORIDE 110 MEQ/L (98-107); CREATININE 0.72 MG/DL (0.60-1.30); GLOMERULAR FILTRATION RATE 113 ML/MIN (>89); GLUCOSE,RANDOM 95 MG/DL (74-106); SODIUM (NA) 141 MEQ/L (136-145)
[2017-08-15 05:45] LABS: ALKALINE PHOSPHATASE 124 U/L (45-117); ALT (GPT) 25 U/L (12-78); TOTAL BILIRUBIN ADULT 0.3 MG/DL (0.2-1.0); TOTAL PROTEIN 5.9 GM/DL (6.4-8.2)
[2017-08-15] MEDS: INSULIN ASPART SUPPLEMENTAL SCALE SQ SCH ×5 (06:00→23:57)
[2017-08-15] MEDS: BACITRACIN TOP OINT 15 GM TUBE TOPICAL SCH ×3 (06:11→21:24)
[2017-08-15] MEDS: AMANTADINE HCL SOLN 100 MG/10 ML UDC PO SCH ×2 (06:11→12:43)
[2017-08-15] MEDS: CHLORHEXIDINE 0.12% (ORAL KIT) 15 ML CUP MT SCH ×2 (08:00→20:32)
[2017-08-15] MEDS: MAGNESIUM HYDROXIDE SUSP 30 ML CUP PO SCH ×2 (08:08→20:31)
[2017-08-15] MEDS: ENOXAPARIN SODIUM 40 MG/0.4 ML SYRINGE SQ SCH ×2 (08:09→21:23)
[2017-08-15] MEDS: SODIUM CHLORIDE FLUSH BID IV FLUSH SCH ×2 (08:09→21:23)
[2017-08-15] MEDS: LANSOPRAZOLE SOLUTAB 30 MG TAB NG SCH (08:09)
[2017-08-15] MEDS: COLLAGENASE OINT 30 GM TUBE TOPICAL SCH (08:10)
[2017-08-15] MEDS: INSULIN DETEMIR 100 UNITS/ML VIAL SQ SCH ×2 (08:10→20:31)
[2017-08-15] MEDS: PROPOFOL 1000 MG/100 ML INJ 100 ML IV PRN ×3 (09:05→16:48)
[2017-08-15] MEDS ORDERED: FUROSEMIDE 20 MG/2 ML VIAL IV PUSH ONE (10:00)
[2017-08-15] MEDS: MICAFUNGIN INJ 100 MG in SODIUM CHLORIDE 0.9% INJ 100 ML IV SCH (10:13)
[2017-08-15] MEDS: METOPROLOL TARTRATE 50 MG TAB PO SCH ×2 (10:46→21:23)
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
[2017-08-15] MEDS ORDERED: CISATRACURIUM INJ 100 MG in SODIUM CHLOR 0.9% 250 ML INJ 250 ML IV PRN (11:30)
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
[2017-08-15] MEDS: MIDAZOLAM 100 MG/100 ML INJ 100 ML IV PRN (12:11)
[2017-08-15] MEDS: CISATRACURIUM INJ 100 MG in SODIUM CHLOR 0.9% 250 ML INJ 240 ML IV PRN ×2 (12:12→16:48)
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
[2017-08-15] MEDS ORDERED: RASS Change Order XX ONE (16:45)
[2017-08-15] MEDS: CHLORHEXIDINE GLUCONATE 2 % 1 PACK (2 CLOTHS) TOP SCH (20:28)
[2017-08-16] VITALS (18 sets, daily range): BP systolic 107–160; BP diastolic 59–88; PULSE 1–88; RESP 5–25; TEMP 96.6–100; O2SAT 94–100
[2017-08-16] MEDS: FREE WATER G-TUBE SCH ×6 (04:01→23:12)
[2017-08-16] MEDS: PROPOFOL 1000 MG/100 ML INJ 100 ML IV PRN ×4 (04:03→18:39)
[2017-08-16] MEDS: SODIUM CHLOR 0.9% 1000 ML INJ 1,000 ML IV SCH (04:41)
[2017-08-16 05:32] LABS: AUTOMATED NEUTROPHIL # 6.3 TH/MM3 (1.8-7.7); BASOPHIL % 0.4 % (0.0-2.0); EOSINOPHIL # 0.4 TH/MM3 (0-0.4); EOSINOPHIL % 4.4 % (0.0-4.0); HEMATOCRIT 24.3 % (39.0-51.0); HEMOGLOBIN 8.1 GM/DL (13.0-17.0); LYMPH % 15.3 % (9.0-44.0); LYMPHOCYTE # 1.4 TH/MM3 (1.0-4.8); MEAN CELL VOLUME 85.4 FL (80.0-100.0); MEAN CORPUSCULAR HEMOGLOBIN 28.3 PG (27.0-34.0); MEAN CORPUSCULAR HGB CONC 33.2 % (32.0-36.0); MEAN PLATELET VOLUME 9.3 FL (7.0-11.0); MONO % 8.8 % (0.0-8.0); MONOCYTE # 0.8 TH/MM3 (0-0.9); NEUT % 71.1 % (16.0-70.0); PLATELET COUNT 291 TH/MM3 (150-450); RED BLOOD COUNT 2.84 MIL/MM3 (4.50-5.90); RED CELL DISTRIBUTION WIDTH 17.6 % (11.6-17.2); WHITE BLOOD COUNT 8.9 TH/MM3 (4.0-11.0)
[2017-08-16 05:54] LABS: ALBUMIN 1.3 GM/DL (3.4-5.0); AST (GOT) 22 U/L (15-37); BICARBONATE 25.2 MEQ/L (21.0-32.0); BLOOD UREA NITROGEN 20 MG/DL (7-18); CHLORIDE 113 MEQ/L (98-107); CREATININE 0.79 MG/DL (0.60-1.30); GLOMERULAR FILTRATION RATE 101 ML/MIN (>89); GLUCOSE,RANDOM 88 MG/DL (74-106); SODIUM (NA) 146 MEQ/L (136-145)
[2017-08-16 05:58] LABS: ALKALINE PHOSPHATASE 120 U/L (45-117); ALT (GPT) 24 U/L (12-78); TOTAL BILIRUBIN ADULT 0.3 MG/DL (0.2-1.0)
[2017-08-16] MEDS: INSULIN ASPART SUPPLEMENTAL SCALE SQ SCH ×3 (06:00→18:00)
--- NOTE | 2017-08-16 06:12 | RADRPT ---
EXAM DATE/TIME: 08/16/2017 05:13 [facility] COMPARISON: CHEST SINGLE AP, August 15, 2017, 4:34. INDICATIONS : Shortness of breath. MEDICAL HISTORY : Hypertension. Diabetes mellitus type II. SURGICAL HISTORY : Fusion, thoracic. ENCOUNTER: Subsequent ACUITY: 1 month PAIN SCORE: Non-responsive. LOCATION: Bilateral chest FINDINGS: Portable AP view of the chest demonstrates a normal-sized cardiac silhouette. Right subclavian centra l line and tracheostomy remain present. Thoracic spinal hardware is present. There is persistent biba silar opacity. No pneumothorax is visualized. CONCLUSION: Stable chest x-ray with bibasilar airspace opacities. Kory Santana MD on August 16, 2017 at 6:11 Board Certified Radiologist. This report was verified electronically.
[2017-08-16] MEDS: AMANTADINE HCL SOLN 100 MG/10 ML UDC PO SCH (06:28)
[2017-08-16] MEDS: PIPERACIL-TAZO 4.5 GM PREMIX 100 ML IV SCH ×4 (06:28→23:12)
[2017-08-16] MEDS: BACITRACIN TOP OINT 15 GM TUBE TOPICAL SCH ×3 (06:29→22:00)
[2017-08-16] MEDS: CHLORHEXIDINE 0.12% (ORAL KIT) 15 ML CUP MT SCH ×2 (08:00→20:45)
[2017-08-16] MEDS: FLUCONAZOLE 100 MG TAB PO SCH (08:28)
[2017-08-16] MEDS: MAGNESIUM HYDROXIDE SUSP 30 ML CUP PO SCH ×2 (08:28→20:45)
[2017-08-16] MEDS: LANSOPRAZOLE SOLUTAB 30 MG TAB NG SCH (08:28)
[2017-08-16] MEDS: INSULIN DETEMIR 100 UNITS/ML VIAL SQ SCH ×2 (08:29→20:46)
[2017-08-16] MEDS: SODIUM CHLORIDE FLUSH BID IV FLUSH SCH ×2 (08:29→20:45)
[2017-08-16] MEDS: ENOXAPARIN SODIUM 40 MG/0.4 ML SYRINGE SQ SCH ×2 (08:30→20:46)
[2017-08-16] MEDS: COLLAGENASE OINT 30 GM TUBE TOPICAL SCH (08:30)
[2017-08-16] MEDS: CISATRACURIUM INJ 100 MG in SODIUM CHLOR 0.9% 250 ML INJ 240 ML IV PRN ×3 (10:17→17:46)
[2017-08-16] MEDS: METOPROLOL TARTRATE 50 MG TAB PO SCH ×2 (10:18→20:45)
[2017-08-16] MEDS ORDERED: POTASSIUM CHLORIDE 25 MEQ EFFERVESCENT TAB PO ONE (11:15)
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
[2017-08-16] MEDS: MIDAZOLAM 100 MG/100 ML INJ 100 ML IV PRN (12:38)
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
[2017-08-16] MEDS ORDERED: PHARMACY ORDERED LAB ONE (15:45)
[2017-08-16] MEDS: VANCOMYCIN INJ 1,750 MG in SODIUM CHLORID 0.9% 500 ML INJ 500 ML IV SCH (18:08)
[2017-08-17] VITALS (18 sets, daily range): BP systolic 117–159; BP diastolic 76–88; PULSE 66–97; RESP 10–20; TEMP 97.9–99.5; O2SAT 9–100
[2017-08-17] MEDS: CISATRACURIUM INJ 100 MG in SODIUM CHLOR 0.9% 250 ML INJ 240 ML IV PRN ×2 (00:10→05:45)
[2017-08-17] MEDS: PROPOFOL 1000 MG/100 ML INJ 100 ML IV PRN ×3 (00:12→21:14)
[2017-08-17] MEDS: SODIUM CHLOR 0.9% 1000 ML INJ 1,000 ML IV SCH ×3 (00:41→20:41)
[2017-08-17] MEDS: CHLORHEXIDINE GLUCONATE 2 % 1 PACK (2 CLOTHS) TOP SCH (04:00)
[2017-08-17] MEDS: FREE WATER G-TUBE SCH ×5 (04:00→20:47)
[2017-08-17] MEDS: PIPERACIL-TAZO 4.5 GM PREMIX 100 ML IV SCH ×3 (05:09→18:00)
[2017-08-17] MEDS: BACITRACIN TOP OINT 15 GM TUBE TOPICAL SCH ×3 (05:09→22:00)
[2017-08-17] MEDS: INSULIN ASPART SUPPLEMENTAL SCALE SQ SCH ×4 (06:00→18:00)
[2017-08-17] MEDS: CHLORHEXIDINE 0.12% (ORAL KIT) 15 ML CUP MT SCH ×2 (08:00→20:47)
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
[2017-08-17] MEDS: COLLAGENASE OINT 30 GM TUBE TOPICAL SCH (09:00)
[2017-08-17] MEDS: SODIUM CHLORIDE FLUSH BID IV FLUSH SCH ×2 (09:00→20:48)
[2017-08-17] MEDS: FLUCONAZOLE 100 MG TAB PO SCH (09:06)
[2017-08-17] MEDS: METOPROLOL TARTRATE 50 MG TAB PO SCH ×2 (09:06→20:48)
[2017-08-17] MEDS: LANSOPRAZOLE SOLUTAB 30 MG TAB NG SCH (09:06)
[2017-08-17] MEDS: MAGNESIUM HYDROXIDE SUSP 30 ML CUP PO SCH ×2 (09:06→20:48)
[2017-08-17] MEDS: INSULIN DETEMIR 100 UNITS/ML VIAL SQ SCH ×2 (09:06→20:48)
[2017-08-17] MEDS: ENOXAPARIN SODIUM 40 MG/0.4 ML SYRINGE SQ SCH ×2 (09:08→20:49)
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
[2017-08-17] MEDS: VANCOMYCIN INJ 1,750 MG in SODIUM CHLORID 0.9% 500 ML INJ 500 ML IV SCH (10:00)
--- NOTE | 2017-08-17 10:24 | RADRPT ---
EXAM DATE/TIME: 08/17/2017 09:46 [facility] COMPARISON: CHEST SINGLE AP, August 16, 2017, 5:13. INDICATIONS : Central line placement MEDICAL HISTORY : Hypertension. Diabetes mellitus type II. SURGICAL HISTORY : Fusion, thoracic. ENCOUNTER: Initial ACUITY: 2 months PAIN SCORE: Non-responsive. LOCATION: Bilateral chest FINDINGS: A single view of the chest demonstrates interval improvement in right basilar consolidation/effusion. Left basilar consolidation/effusion persists. No pneumothorax. Right subclavian central venous mango ter stable in position. Tracheostomy tube is unchanged in position. Posterior transpedicular fixation in the mid dorsal spine. Osseous structures are otherwise intact. Heart size remains normal. CONCLUSION: 1. Marked interval improvement in the aeration in the right base with resolving consolidation/effusio n. Left basilar consolidation/effusion persists. 2. No pneumothorax. 3. Stable position of life support tubes including a right subclavian central venous catheter and tra cheostomy tube. Roverto Ortega MD on August 17, 2017 at 10:16 Board Certified Radiologist. This report was verified electronically.
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
[2017-08-17] MEDS: MIDAZOLAM 100 MG/100 ML INJ 100 ML IV PRN (15:45)
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
[2017-08-18] VITALS (18 sets, daily range): BP systolic 114–195; BP diastolic 69–98; PULSE 70–107; RESP 10–17; TEMP 97.9–99.3; O2SAT 94–100
[2017-08-18] MEDS: PIPERACIL-TAZO 4.5 GM PREMIX 100 ML IV SCH ×4 (01:19→18:00)
[2017-08-18] MEDS: CHLORHEXIDINE GLUCONATE 2 % 1 PACK (2 CLOTHS) TOP SCH (04:00)
[2017-08-18] MEDS: CISATRACURIUM INJ 100 MG in SODIUM CHLOR 0.9% 250 ML INJ 240 ML IV PRN ×6 (04:44→23:55)
[2017-08-18] MEDS: FREE WATER G-TUBE SCH ×6 (04:57→20:00)
[2017-08-18] MEDS: VANCOMYCIN INJ 1,750 MG in SODIUM CHLORID 0.9% 500 ML INJ 500 ML IV SCH (04:57)
[2017-08-18 05:03] LABS: AUTOMATED NEUTROPHIL # 5.3 TH/MM3 (1.8-7.7); BASOPHIL # 0.1 TH/MM3 (0-0.2); BASOPHIL % 0.9 % (0.0-2.0); EOSINOPHIL # 0.4 TH/MM3 (0-0.4); EOSINOPHIL % 5.2 % (0.0-4.0); HEMATOCRIT 26.1 % (39.0-51.0); HEMOGLOBIN 8.4 GM/DL (13.0-17.0); LYMPH % 17.4 % (9.0-44.0); LYMPHOCYTE # 1.4 TH/MM3 (1.0-4.8); MEAN CELL VOLUME 84.5 FL (80.0-100.0); MEAN CORPUSCULAR HEMOGLOBIN 27.4 PG (27.0-34.0); MEAN CORPUSCULAR HGB CONC 32.4 % (32.0-36.0); MEAN PLATELET VOLUME 8.6 FL (7.0-11.0); MONO % 9.9 % (0.0-8.0); MONOCYTE # 0.8 TH/MM3 (0-0.9); NEUT % 66.6 % (16.0-70.0); PLATELET COUNT 319 TH/MM3 (150-450); RED BLOOD COUNT 3.09 MIL/MM3 (4.50-5.90); RED CELL DISTRIBUTION WIDTH 17.7 % (11.6-17.2); WHITE BLOOD COUNT 7.9 TH/MM3 (4.0-11.0)
[2017-08-18 05:21] LABS: BICARBONATE 30.4 MEQ/L (21.0-32.0); CALCIUM 8.2 MG/DL (8.5-10.1); CREATININE 0.55 MG/DL (0.60-1.30)
[2017-08-18] MEDS: INSULIN ASPART SUPPLEMENTAL SCALE SQ SCH ×4 (06:00→18:00)
[2017-08-18] MEDS: BACITRACIN TOP OINT 15 GM TUBE TOPICAL SCH ×3 (06:00→22:00)
[2017-08-18] MEDS: SODIUM CHLOR 0.9% 1000 ML INJ 1,000 ML IV SCH ×2 (06:41→16:38)
[2017-08-18 07:47] LABS: BANDS 16 % (0-6); BASOPHILS 1 % (0-2); LYMPHOCYTES 14 % (9-44); METAMYELOCYTES 5 % (0-1); MONOCYTES 11 % (0-8); NEUTROPHIL # MANUAL DIFF 5.6 TH/MM3 (1.8-7.7); POLYS (SEG NEUTROPHILS) 50 % (16-70)
[2017-08-18] MEDS: CHLORHEXIDINE 0.12% (ORAL KIT) 15 ML CUP MT SCH ×2 (08:00→20:00)
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
[2017-08-18] MEDS: ENOXAPARIN SODIUM 40 MG/0.4 ML SYRINGE SQ SCH ×2 (08:51→22:10)
[2017-08-18] MEDS: hydrALAZINE HCL 20 MG/ML VIAL IV PRN ×2 (08:51→11:09)
[2017-08-18] MEDS: INSULIN DETEMIR 100 UNITS/ML VIAL SQ SCH ×2 (08:51→22:12)
[2017-08-18] MEDS: SODIUM CHLORIDE FLUSH BID IV FLUSH SCH ×2 (08:51→21:00)
[2017-08-18] MEDS: FLUCONAZOLE 100 MG TAB PO SCH (08:51)
[2017-08-18] MEDS: MAGNESIUM HYDROXIDE SUSP 30 ML CUP PO SCH ×2 (08:51→22:10)
[2017-08-18] MEDS: LANSOPRAZOLE SOLUTAB 30 MG TAB NG SCH (08:51)
[2017-08-18] MEDS: METOPROLOL TARTRATE 50 MG TAB PO SCH ×2 (08:51→22:11)
[2017-08-18] MEDS: COLLAGENASE OINT 30 GM TUBE TOPICAL SCH (08:52)
[2017-08-18] MEDS: ENALAPRILAT 1.25 MG/ML VIAL IV PUSH PRN (09:05)
[2017-08-18] MEDS: PROPOFOL 1000 MG/100 ML INJ 100 ML IV PRN ×2 (11:35→19:43)
[2017-08-18] MEDS: oxyCODONE HCL ORAL CONC 5 MG/0.25 ML SYRINGE PO PRN ×2 (11:36→17:00)
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
[2017-08-18] MEDS ORDERED: PHARMACY ORDERED LAB ONE (15:45)
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
[2017-08-18] MEDS: MIDAZOLAM 100 MG/100 ML INJ 100 ML IV PRN (18:38)
[2017-08-19] VITALS (18 sets, daily range): BP systolic 121–171; BP diastolic 71–94; PULSE 72–112; RESP 10–33; TEMP 97.2–99.7; O2SAT 93–100
[2017-08-19] MEDS: PIPERACIL-TAZO 4.5 GM PREMIX 100 ML IV SCH ×4 (00:44→18:00)
[2017-08-19] MEDS: CISATRACURIUM INJ 100 MG in SODIUM CHLOR 0.9% 250 ML INJ 240 ML IV PRN ×4 (02:00→08:30)
[2017-08-19] MEDS: SODIUM CHLOR 0.9% 1000 ML INJ 1,000 ML IV SCH (02:41)
[2017-08-19] MEDS: CHLORHEXIDINE GLUCONATE 2 % 1 PACK (2 CLOTHS) TOP SCH (04:00)
[2017-08-19] MEDS: FREE WATER G-TUBE SCH ×6 (04:39→20:00)
[2017-08-19] MEDS: INSULIN ASPART SUPPLEMENTAL SCALE SQ SCH ×4 (05:52→18:00)
[2017-08-19] MEDS: BACITRACIN TOP OINT 15 GM TUBE TOPICAL SCH ×3 (06:00→22:00)
[2017-08-19] MEDS: PROPOFOL 1000 MG/100 ML INJ 100 ML IV PRN ×2 (06:34→18:50)
[2017-08-19] MEDS: CHLORHEXIDINE 0.12% (ORAL KIT) 15 ML CUP MT SCH ×2 (08:00→20:00)
[2017-08-19] MEDS: SODIUM CHLORIDE FLUSH BID IV FLUSH SCH ×2 (09:00→21:00)
[2017-08-19] MEDS: METOPROLOL TARTRATE 50 MG TAB PO SCH ×2 (09:00→20:26)
[2017-08-19] MEDS: MAGNESIUM HYDROXIDE SUSP 30 ML CUP PO SCH ×2 (09:00→20:00)
[2017-08-19] MEDS: INSULIN DETEMIR 100 UNITS/ML VIAL SQ SCH ×2 (09:00→20:26)
[2017-08-19] MEDS: FLUCONAZOLE 100 MG TAB PO SCH (09:00)
[2017-08-19] MEDS: COLLAGENASE OINT 30 GM TUBE TOPICAL SCH (09:00)
[2017-08-19] MEDS: ENOXAPARIN SODIUM 40 MG/0.4 ML SYRINGE SQ SCH ×2 (09:00→20:25)
[2017-08-19] MEDS: LANSOPRAZOLE SOLUTAB 30 MG TAB NG SCH (09:00)
[2017-08-19] MEDS: ENALAPRILAT 1.25 MG/ML VIAL IV PUSH PRN (11:48)
[2017-08-19] MEDS: hydrALAZINE HCL 20 MG/ML VIAL IV PRN (11:54)
[2017-08-19] MEDS: oxyCODONE HCL ORAL CONC 5 MG/0.25 ML SYRINGE PO PRN ×2 (12:05→13:00)
[2017-08-19] MEDS ORDERED: FUROSEMIDE 40 MG/4 ML VIAL IV PUSH ONE (12:30)
[2017-08-19] MEDS: hydrALAZINE HCL 50 MG TAB PO SCH ×2 (14:00→20:26)
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
[2017-08-19] MEDS: fentaNYL DRIP 250 ML IV PRN (15:30)
[2017-08-20] VITALS (18 sets, daily range): BP systolic 79–166; BP diastolic 51–93; PULSE 72–104; RESP 10–25; TEMP 97.8–99.1; O2SAT 95–100
[2017-08-20] MEDS: PIPERACIL-TAZO 4.5 GM PREMIX 100 ML IV SCH ×4 (00:06→18:00)
[2017-08-20] MEDS: FREE WATER G-TUBE SCH ×6 (04:00→20:00)
[2017-08-20] MEDS: CHLORHEXIDINE GLUCONATE 2 % 1 PACK (2 CLOTHS) TOP SCH (04:00)
[2017-08-20 05:25] LABS: BASOPHIL # 0.1 TH/MM3 (0-0.2); EOSINOPHIL # 0.3 TH/MM3 (0-0.4); EOSINOPHIL % 3.2 % (0.0-4.0); HEMATOCRIT 25.1 % (39.0-51.0); HEMOGLOBIN 8.2 GM/DL (13.0-17.0); LYMPH % 27.4 % (9.0-44.0); LYMPHOCYTE # 2.4 TH/MM3 (1.0-4.8); MEAN CELL VOLUME 83.6 FL (80.0-100.0); MEAN CORPUSCULAR HEMOGLOBIN 27.3 PG (27.0-34.0); MEAN CORPUSCULAR HGB CONC 32.7 % (32.0-36.0); MEAN PLATELET VOLUME 8.6 FL (7.0-11.0); MONO % 10.7 % (0.0-8.0); MONOCYTE # 0.9 TH/MM3 (0-0.9); NEUT % 57.7 % (16.0-70.0); PLATELET COUNT 302 TH/MM3 (150-450); RED BLOOD COUNT 3.01 MIL/MM3 (4.50-5.90); RED CELL DISTRIBUTION WIDTH 19.1 % (11.6-17.2); WHITE BLOOD COUNT 8.6 TH/MM3 (4.0-11.0)
[2017-08-20 05:49] LABS: BICARBONATE 33.8 MEQ/L (21.0-32.0); CALCIUM 7.9 MG/DL (8.5-10.1); CREATININE 0.6 MG/DL (0.60-1.30)
[2017-08-20] MEDS: INSULIN ASPART SUPPLEMENTAL SCALE SQ SCH ×4 (06:00→18:00)
[2017-08-20] MEDS: BACITRACIN TOP OINT 15 GM TUBE TOPICAL SCH ×3 (06:00→22:00)
--- NOTE | 2017-08-20 06:55 | RADRPT ---
EXAM DATE/TIME: 08/20/2017 05:33 [facility] COMPARISON: CHEST SINGLE AP, August 17, 2017, 9:46. INDICATIONS : Respiratory failure. MEDICAL HISTORY : None. SURGICAL HISTORY : None. ENCOUNTER: Subsequent ACUITY: 4 - 6 days PAIN SCORE: Non-responsive. LOCATION: Bilateral chest FINDINGS: A single view of the chest demonstrates right central line in superior vena cava. Tracheostomy unchan ged right basilar airspace disease relatively stable since August 17. Mild cardiomegaly. No pneumoth orax. CONCLUSION: 1. Bilateral mostly basilar airspace disease as above. Tracheostomy and right central line unchanged. Previous spinal fixation. Billy Aponte MD on August 20, 2017 at 6:51 Board Certified Radiologist. This report was verified electronically.
[2017-08-20 07:10] LABS: BANDS 13 % (0-6); LYMPHOCYTES 11 % (9-44); METAMYELOCYTES 2 % (0-1); MONOCYTES 8 % (0-8); MYELOCYTES 3 % (0-0); NEUTROPHIL # MANUAL DIFF 6.7 TH/MM3 (1.8-7.7); POLYS (SEG NEUTROPHILS) 60 % (16-70)
[2017-08-20] MEDS: fentaNYL DRIP 250 ML IV PRN ×2 (07:30→18:45)
[2017-08-20] MEDS: CHLORHEXIDINE 0.12% (ORAL KIT) 15 ML CUP MT SCH ×2 (08:00→20:00)
[2017-08-20] MEDS: METOPROLOL TARTRATE 50 MG TAB PO SCH ×2 (09:00→21:11)
[2017-08-20] MEDS: MAGNESIUM HYDROXIDE SUSP 30 ML CUP PO SCH ×2 (09:00→21:00)
[2017-08-20] MEDS: INSULIN DETEMIR 100 UNITS/ML VIAL SQ SCH ×2 (09:00→22:40)
[2017-08-20] MEDS: ENOXAPARIN SODIUM 40 MG/0.4 ML SYRINGE SQ SCH ×2 (09:00→20:50)
[2017-08-20] MEDS: COLLAGENASE OINT 30 GM TUBE TOPICAL SCH (09:00)
[2017-08-20] MEDS: hydrALAZINE HCL 50 MG TAB PO SCH ×2 (09:00→21:11)
[2017-08-20] MEDS: FLUCONAZOLE 100 MG TAB PO SCH (09:00)
[2017-08-20] MEDS: SODIUM CHLORIDE FLUSH BID IV FLUSH SCH ×2 (09:00→21:00)
[2017-08-20] MEDS: LANSOPRAZOLE SOLUTAB 30 MG TAB NG SCH (09:00)
[2017-08-20] MEDS ORDERED: POTASSIUM CHLOR 20 MEQ PREMIX 100 ML IV PRN (10:15)
[2017-08-20] MEDS ORDERED: POTASSIUM PHOSPHATE MONOBASIC 500 MG TAB PO/TUBE PRN (10:15)
[2017-08-20] MEDS ORDERED: SODIUM PHOSPHATE INJ 30 MMOL in SODIUM CHLOR 0.9% 250 ML INJ 240 ML IV PRN (10:15)
[2017-08-20] MEDS ORDERED: POTASSIUM PHOSPHATE INJ 30 MMOL in SODIUM CHLOR 0.9% 250 ML INJ 250 ML IV PRN (10:15)
[2017-08-20] MEDS ORDERED: MAGNESIUM OXIDE 400 MG TAB PO PRN (10:15)
[2017-08-20] MEDS ORDERED: MAGNESIUM SULFATE INJ 4 GM in SODIUM CHLORIDE 0.9% INJ 92 ML IV PRN (10:15)
[2017-08-20] MEDS ORDERED: POTASSIUM CHLORIDE 25 MEQ EFFERVESCENT TAB PO PRN ×2 (10:15→10:30)
[2017-08-20] MEDS ORDERED: POTASSIUM PHOSPHATE MONOBASIC 500 MG TAB PO PRN (10:15)
[2017-08-20] MEDS ORDERED: MAGNESIUM SULFATE INJ 2 GM in SODIUM CHLORIDE 0.9% INJ 96 ML IV PRN (10:15)
[2017-08-20] MEDS ORDERED: POTASSIUM CHLOR 40 MEQ PREMIX 100 ML IV PRN ×2 (10:15)
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
[2017-08-21] VITALS (18 sets, daily range): BP systolic 88–170; BP diastolic 52–85; PULSE 82–112; RESP 11–28; TEMP 98.6–99.8; O2SAT 99–100
[2017-08-21] MEDS: PIPERACIL-TAZO 4.5 GM PREMIX 100 ML IV SCH ×4 (00:11→18:00)
[2017-08-21] MEDS: ENALAPRILAT 1.25 MG/ML VIAL IV PUSH PRN (01:17)
--- NOTE | 2017-08-21 03:33 | RADRPT ---
EXAM DATE/TIME: 08/21/2017 03:05 [facility] COMPARISON: No previous studies available for comparison. INDICATIONS : Evaluate for pneumonia-Respiratory failure MEDICAL HISTORY : None. SURGICAL HISTORY : None. ENCOUNTER: Subsequent ACUITY: 3 weeks PAIN SCORE: Non-responsive. LOCATION: Bilateral chest FINDINGS: Tracheostomy tube, cardiomegaly and dense consolidation in the left lower lobe identified with air br onchogram formation seen. There is mild infiltrate at the right base. Joshua and screw fixation of the t horacic spine right subclavian line identified. CONCLUSION: No significant change has occurred. Evans Holt MD on August 21, 2017 at 3:31 Board Certified Radiologist. This report was verified electronically.
[2017-08-21] MEDS: CHLORHEXIDINE GLUCONATE 2 % 1 PACK (2 CLOTHS) TOP SCH (03:54)
[2017-08-21] MEDS: FREE WATER G-TUBE SCH ×6 (03:54→20:00)
[2017-08-21 05:40] LABS: ALBUMIN 1.3 GM/DL (3.4-5.0); AST (GOT) 20 U/L (15-37); BICARBONATE 31.8 MEQ/L (21.0-32.0); BLOOD UREA NITROGEN 17 MG/DL (7-18); CALCIUM 8.2 MG/DL (8.5-10.1); CHLORIDE 101 MEQ/L (98-107); CREATININE 0.74 MG/DL (0.60-1.30); GLOMERULAR FILTRATION RATE 109 ML/MIN (>89); GLUCOSE,RANDOM 124 MG/DL (74-106); SODIUM (NA) 139 MEQ/L (136-145)
[2017-08-21 05:44] LABS: ALKALINE PHOSPHATASE 94 U/L (45-117); ALT (GPT) 28 U/L (12-78); TOTAL BILIRUBIN ADULT 0.2 MG/DL (0.2-1.0); TOTAL PROTEIN 6.2 GM/DL (6.4-8.2)
[2017-08-21] MEDS: BACITRACIN TOP OINT 15 GM TUBE TOPICAL SCH ×3 (06:00→22:00)
[2017-08-21] MEDS: INSULIN ASPART SUPPLEMENTAL SCALE SQ SCH ×4 (06:16→18:00)
[2017-08-21 06:52] LABS: AUTOMATED NEUTROPHIL # 6.6 TH/MM3 (1.8-7.7); BASOPHIL # 0.1 TH/MM3 (0-0.2); BASOPHIL % 1.2 % (0.0-2.0); EOSINOPHIL # 0.2 TH/MM3 (0-0.4); EOSINOPHIL % 1.5 % (0.0-4.0); HEMATOCRIT 27.1 % (39.0-51.0); HEMOGLOBIN 8.6 GM/DL (13.0-17.0); LYMPHOCYTE # 2.2 TH/MM3 (1.0-4.8); MEAN CELL VOLUME 85.3 FL (80.0-100.0); MEAN CORPUSCULAR HGB CONC 31.7 % (32.0-36.0); MEAN PLATELET VOLUME 8.7 FL (7.0-11.0); MONO % 8.9 % (0.0-8.0); MONOCYTE # 0.9 TH/MM3 (0-0.9); NEUT % 66.4 % (16.0-70.0); PLATELET COUNT 297 TH/MM3 (150-450); RED BLOOD COUNT 3.18 MIL/MM3 (4.50-5.90); RED CELL DISTRIBUTION WIDTH 18.7 % (11.6-17.2)
[2017-08-21] MEDS: fentaNYL DRIP 250 ML IV PRN ×2 (07:00→18:30)
[2017-08-21] MEDS: CHLORHEXIDINE 0.12% (ORAL KIT) 15 ML CUP MT SCH ×2 (08:00→20:00)
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
[2017-08-21] MEDS: FLUCONAZOLE 100 MG TAB PO SCH (08:35)
[2017-08-21] MEDS: hydrALAZINE HCL 50 MG TAB PO SCH ×2 (08:35→20:10)
[2017-08-21] MEDS: ENOXAPARIN SODIUM 40 MG/0.4 ML SYRINGE SQ SCH ×2 (08:35→20:10)
[2017-08-21] MEDS: LANSOPRAZOLE SOLUTAB 30 MG TAB NG SCH (08:35)
[2017-08-21] MEDS: SODIUM CHLORIDE FLUSH BID IV FLUSH SCH ×2 (08:35→20:08)
[2017-08-21] MEDS: COLLAGENASE OINT 30 GM TUBE TOPICAL SCH (08:35)
[2017-08-21] MEDS: INSULIN DETEMIR 100 UNITS/ML VIAL SQ SCH ×2 (08:35→20:28)
[2017-08-21] MEDS: MAGNESIUM HYDROXIDE SUSP 30 ML CUP PO SCH ×2 (08:35→20:08)
[2017-08-21] MEDS: METOPROLOL TARTRATE 50 MG TAB PO SCH ×2 (08:35→20:27)
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
[2017-08-22] VITALS (19 sets, daily range): BP systolic 87–141; BP diastolic 53–75; PULSE 72–97; RESP 10–27; TEMP 98.8–100.8; O2SAT 95–100
[2017-08-22] MEDS: PIPERACIL-TAZO 4.5 GM PREMIX 100 ML IV SCH ×3 (00:13→12:00)
[2017-08-22] MEDS: CHLORHEXIDINE GLUCONATE 2 % 1 PACK (2 CLOTHS) TOP SCH (03:28)
[2017-08-22] MEDS: FREE WATER G-TUBE SCH ×6 (03:28→20:00)
[2017-08-22 04:07] LABS: AUTOMATED NEUTROPHIL # 6.5 TH/MM3 (1.8-7.7); BASOPHIL # 0.1 TH/MM3 (0-0.2); BASOPHIL % 1.3 % (0.0-2.0); EOSINOPHIL # 0.2 TH/MM3 (0-0.4); HEMATOCRIT 24.7 % (39.0-51.0); HEMOGLOBIN 7.8 GM/DL (13.0-17.0); LYMPH % 20.1 % (9.0-44.0); MEAN CELL VOLUME 84.6 FL (80.0-100.0); MEAN CORPUSCULAR HEMOGLOBIN 26.8 PG (27.0-34.0); MEAN CORPUSCULAR HGB CONC 31.7 % (32.0-36.0); MEAN PLATELET VOLUME 8.7 FL (7.0-11.0); MONO % 10.7 % (0.0-8.0); NEUT % 65.9 % (16.0-70.0); PLATELET COUNT 291 TH/MM3 (150-450); RED BLOOD COUNT 2.92 MIL/MM3 (4.50-5.90); WHITE BLOOD COUNT 9.8 TH/MM3 (4.0-11.0)
[2017-08-22 04:32] LABS: ALBUMIN 1.4 GM/DL (3.4-5.0); AST (GOT) 33 U/L (15-37); BLOOD UREA NITROGEN 20 MG/DL (7-18); CALCIUM 8.2 MG/DL (8.5-10.1); CHLORIDE 102 MEQ/L (98-107); CREATININE 0.87 MG/DL (0.60-1.30); GLOMERULAR FILTRATION RATE 90 ML/MIN (>89); GLUCOSE,RANDOM 104 MG/DL (74-106); SODIUM (NA) 139 MEQ/L (136-145)
[2017-08-22 04:34] LABS: ALT (GPT) 27 U/L (12-78)
[2017-08-22 04:36] LABS: ALKALINE PHOSPHATASE 93 U/L (45-117); TOTAL BILIRUBIN ADULT 0.2 MG/DL (0.2-1.0); TOTAL PROTEIN 6.2 GM/DL (6.4-8.2)
[2017-08-22] MEDS: POTASSIUM CHLOR 20 MEQ PREMIX 100 ML IV PRN ×2 (05:29→10:12)
[2017-08-22] MEDS: INSULIN ASPART SUPPLEMENTAL SCALE SQ SCH ×4 (05:40→17:48)
[2017-08-22] MEDS: BACITRACIN TOP OINT 15 GM TUBE TOPICAL SCH ×3 (05:41→22:00)
--- NOTE | 2017-08-22 06:05 | RADRPT ---
EXAM DATE/TIME: 08/22/2017 05:31 [facility] COMPARISON: CHEST SINGLE AP, August 21, 2017, 3:05. INDICATIONS : Short of breath. MEDICAL HISTORY : None. SURGICAL HISTORY : None. ENCOUNTER: Subsequent ACUITY: 4 - 6 days PAIN SCORE: Non-responsive. LOCATION: Bilateral chest FINDINGS: Bilateral effusions and consolidation greatest in the left lower lobe. Tracheostomy tube and spinal f ixation hardware again seen. Right subclavian central venous catheter again noted. CONCLUSION: No significant change has occurred. Evans Holt MD on August 22, 2017 at 6:02 Board Certified Radiologist. This report was verified electronically.
[2017-08-22] MEDS: CHLORHEXIDINE 0.12% (ORAL KIT) 15 ML CUP MT SCH ×2 (08:00→20:46)
[2017-08-22] MEDS: METOPROLOL TARTRATE 50 MG TAB PO SCH ×2 (08:17→20:46)
[2017-08-22] MEDS: INSULIN DETEMIR 100 UNITS/ML VIAL SQ SCH ×2 (08:17→20:47)
[2017-08-22] MEDS: LANSOPRAZOLE SOLUTAB 30 MG TAB NG SCH (08:17)
[2017-08-22] MEDS: hydrALAZINE HCL 50 MG TAB PO SCH ×2 (08:17→20:46)
[2017-08-22] MEDS: COLLAGENASE OINT 30 GM TUBE TOPICAL SCH (08:18)
[2017-08-22] MEDS: ENOXAPARIN SODIUM 40 MG/0.4 ML SYRINGE SQ SCH ×2 (08:18→20:47)
[2017-08-22] MEDS: MAGNESIUM HYDROXIDE SUSP 30 ML CUP PO SCH ×2 (08:18→20:47)
[2017-08-22] MEDS: SODIUM CHLORIDE FLUSH BID IV FLUSH SCH ×2 (08:18→20:47)
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
[2017-08-22] MEDS: fentaNYL DRIP 250 ML IV PRN (12:45)
[2017-08-22] MEDS: PROPOFOL 1000 MG/100 ML INJ 100 ML IV PRN (12:48)
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
[2017-08-23] VITALS (17 sets, daily range): BP systolic 97–172; BP diastolic 57–75; PULSE 70–124; RESP 18–31; TEMP 100.4–103; O2SAT 92–100
[2017-08-23] MEDS: ACETAMINOPHEN 1000 MG/100 ML 100 ML IV PRN ×3 (03:37→21:47)
[2017-08-23] MEDS: FREE WATER G-TUBE SCH ×6 (03:37→20:00)
[2017-08-23] MEDS: CHLORHEXIDINE GLUCONATE 2 % 1 PACK (2 CLOTHS) TOP SCH (03:37)
[2017-08-23] MEDS: fentaNYL DRIP 250 ML IV PRN (05:03)
--- NOTE | 2017-08-23 05:50 | RADRPT ---
EXAM DATE/TIME: 08/23/2017 04:53 [facility] COMPARISON: CHEST SINGLE AP, August 22, 2017, 5:31. INDICATIONS : Short of breath. MEDICAL HISTORY : None. SURGICAL HISTORY : None. ENCOUNTER: Subsequent ACUITY: 1 week PAIN SCORE: 0/10 LOCATION: Bilateral chest FINDINGS: No change in appearance of the lungs. Tracheostomy tube, bilateral Usin infiltrates and consolidation in the lower lobes. Left effusion suspected. Joshua and screw fixation of the mid thoracic spine noted. Right subclavian central venous catheter again seen. CONCLUSION: No significant change has occurred. Evans Holt MD on August 23, 2017 at 5:48 Board Certified Radiologist. This report was verified electronically.
[2017-08-23] MEDS: INSULIN ASPART SUPPLEMENTAL SCALE SQ SCH ×4 (06:00→18:00)
[2017-08-23] MEDS: BACITRACIN TOP OINT 15 GM TUBE TOPICAL SCH ×3 (06:00→22:00)
[2017-08-23 06:18] LABS: AUTOMATED NEUTROPHIL # 11.9 TH/MM3 (1.8-7.7); BASOPHIL # 0.1 TH/MM3 (0-0.2); BASOPHIL % 0.4 % (0.0-2.0); EOSINOPHIL # 0.1 TH/MM3 (0-0.4); EOSINOPHIL % 0.8 % (0.0-4.0); HEMATOCRIT 24.4 % (39.0-51.0); LYMPH % 16.2 % (9.0-44.0); LYMPHOCYTE # 2.6 TH/MM3 (1.0-4.8); MEAN CELL VOLUME 83.4 FL (80.0-100.0); MEAN CORPUSCULAR HEMOGLOBIN 27.3 PG (27.0-34.0); MEAN CORPUSCULAR HGB CONC 32.7 % (32.0-36.0); MEAN PLATELET VOLUME 8.6 FL (7.0-11.0); MONO % 7.8 % (0.0-8.0); MONOCYTE # 1.2 TH/MM3 (0-0.9); NEUT % 74.8 % (16.0-70.0); PLATELET COUNT 274 TH/MM3 (150-450); RED BLOOD COUNT 2.93 MIL/MM3 (4.50-5.90); RED CELL DISTRIBUTION WIDTH 19.1 % (11.6-17.2); WHITE BLOOD COUNT 15.9 TH/MM3 (4.0-11.0)
[2017-08-23 06:42] LABS: ALBUMIN 1.4 GM/DL (3.4-5.0); AST (GOT) 32 U/L (15-37); BLOOD UREA NITROGEN 19 MG/DL (7-18); CALCIUM 7.9 MG/DL (8.5-10.1); CHLORIDE 104 MEQ/L (98-107); CREATININE 0.77 MG/DL (0.60-1.30); GLOMERULAR FILTRATION RATE 104 ML/MIN (>89); GLUCOSE,RANDOM 120 MG/DL (74-106); SODIUM (NA) 139 MEQ/L (136-145)
[2017-08-23 06:43] LABS: ALT (GPT) 22 U/L (12-78)
[2017-08-23 06:45] LABS: ALKALINE PHOSPHATASE 90 U/L (45-117); TOTAL BILIRUBIN ADULT 0.2 MG/DL (0.2-1.0); TOTAL PROTEIN 6.4 GM/DL (6.4-8.2)
[2017-08-23] MEDS: CHLORHEXIDINE 0.12% (ORAL KIT) 15 ML CUP MT SCH ×2 (08:00→20:00)
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
[2017-08-23] MEDS: SODIUM CHLORIDE FLUSH BID IV FLUSH SCH ×2 (09:00→21:36)
[2017-08-23] MEDS: COLLAGENASE OINT 30 GM TUBE TOPICAL SCH (09:00)
[2017-08-23] MEDS: MAGNESIUM HYDROXIDE SUSP 30 ML CUP PO SCH ×2 (09:00→21:35)
[2017-08-23] MEDS: LANSOPRAZOLE SOLUTAB 30 MG TAB NG SCH (09:20)
[2017-08-23] MEDS: METOPROLOL TARTRATE 50 MG TAB PO SCH ×2 (09:20→21:35)
[2017-08-23] MEDS: ENOXAPARIN SODIUM 40 MG/0.4 ML SYRINGE SQ SCH ×2 (09:22→21:36)
[2017-08-23] MEDS: INSULIN DETEMIR 100 UNITS/ML VIAL SQ SCH ×2 (09:22→21:40)
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
[2017-08-23] MEDS: PIPERACIL-TAZO 4.5 GM PREMIX 100 ML IV SCH ×2 (14:57→21:36)
[2017-08-23] MEDS: oxyCODONE HCL ORAL CONC 5 MG/0.25 ML SYRINGE PO PRN ×2 (14:57→19:02)
[2017-08-23] MEDS: hydrALAZINE HCL 25 MG TAB PO SCH (21:35)
[2017-08-24] VITALS (17 sets, daily range): BP systolic 89–124; BP diastolic 51–64; PULSE 84–106; RESP 23–25; TEMP 99.7–102.6; O2SAT 93–100
[2017-08-24] MEDS: PIPERACIL-TAZO 4.5 GM PREMIX 100 ML IV SCH ×4 (02:54→20:43)
[2017-08-24] MEDS: FREE WATER G-TUBE SCH ×6 (03:27→20:00)
[2017-08-24] MEDS: CHLORHEXIDINE GLUCONATE 2 % 1 PACK (2 CLOTHS) TOP SCH (03:27)
[2017-08-24] MEDS: ACETAMINOPHEN 1000 MG/100 ML 100 ML IV PRN (03:51)
[2017-08-24] MEDS: INSULIN ASPART SUPPLEMENTAL SCALE SQ SCH ×4 (05:20→18:00)
[2017-08-24] MEDS: BACITRACIN TOP OINT 15 GM TUBE TOPICAL SCH ×3 (05:20→21:00)
[2017-08-24 06:03] LABS: AUTOMATED NEUTROPHIL # 15.9 TH/MM3 (1.8-7.7); BASOPHIL # 0.1 TH/MM3 (0-0.2); BASOPHIL % 0.3 % (0.0-2.0); HEMATOCRIT 23.7 % (39.0-51.0); HEMOGLOBIN 7.8 GM/DL (13.0-17.0); LYMPHOCYTE # 2.7 TH/MM3 (1.0-4.8); MEAN CELL VOLUME 82.5 FL (80.0-100.0); MEAN CORPUSCULAR HGB CONC 32.8 % (32.0-36.0); MONO % 9.6 % (0.0-8.0); NEUT % 77.1 % (16.0-70.0); PLATELET COUNT 274 TH/MM3 (150-450); RED BLOOD COUNT 2.87 MIL/MM3 (4.50-5.90); RED CELL DISTRIBUTION WIDTH 19.1 % (11.6-17.2); WHITE BLOOD COUNT 20.6 TH/MM3 (4.0-11.0)
[2017-08-24 06:41] LABS: BICARBONATE 27.8 MEQ/L (21.0-32.0); CALCIUM 7.7 MG/DL (8.5-10.1); CREATININE 0.72 MG/DL (0.60-1.30)
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
[2017-08-24] MEDS: MAGNESIUM HYDROXIDE SUSP 30 ML CUP PO SCH ×2 (09:00→21:00)
[2017-08-24] MEDS: CHLORHEXIDINE 0.12% (ORAL KIT) 15 ML CUP MT SCH ×2 (09:18→20:00)
[2017-08-24] MEDS: LANSOPRAZOLE SOLUTAB 30 MG TAB NG SCH (09:18)
[2017-08-24] MEDS: SODIUM CHLORIDE FLUSH BID IV FLUSH SCH ×2 (09:18→20:45)
[2017-08-24] MEDS: hydrALAZINE HCL 25 MG TAB PO SCH ×2 (09:19→20:45)
[2017-08-24] MEDS: METOPROLOL TARTRATE 50 MG TAB PO SCH ×2 (09:19→20:44)
[2017-08-24] MEDS: INSULIN DETEMIR 100 UNITS/ML VIAL SQ SCH ×2 (09:19→20:45)
[2017-08-24] MEDS: COLLAGENASE OINT 30 GM TUBE TOPICAL SCH (09:19)
[2017-08-24] MEDS: ENOXAPARIN SODIUM 40 MG/0.4 ML SYRINGE SQ SCH ×2 (09:19→20:44)
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
[2017-08-24] MEDS ORDERED: Vancomycin Consult Pharmacy 1 EA OTHER SCH (09:45)
[2017-08-24] MEDS: VANCOMYCIN INJ 1,500 MG in SODIUM CHLORID 0.9% 500 ML INJ 500 ML IV SCH (12:52)
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
[2017-08-24 15:31] LABS: BILIRUBIN, URINE NEG (NEG); BLOOD, URINE MOD (NEG); CALCIUM OXALATE CRYSTALS,URINE RARE /hpf; GLUCOSE,URINE NEG (NEG); KETONE, URINE NEG (NEG); NITRITE,URINE NEG (NEG); URINE COLOR YELLOW (YELLW/STRAW); URINE LEUKOCYTE ESTERASE TRACE (NEG)
--- NOTE | 2017-08-24 15:35 | RADRPT ---
EXAM DATE/TIME: 08/24/2017 12:22 [facility] COMPARISON: MRI THORACIC SPINE W/O CONTRAST, July 05, 2017, 16:14. MRI THORACIC SPINE W/O CONTRAST, July 11, 2017, 11:44. INDICATIONS : Trauma follow up fractures. RADIATION DOSE: 38.14 CTDIvol (mGy) MEDICAL HISTORY : Cardiovascular disease. Hypertension. Diabetes SURGICAL HISTORY : None. ENCOUNTER: Subsequent ACUITY: 2 months PAIN SCALE: Non-responsive LOCATION: Thorasic spine TECHNIQUE: Volumetric scanning of the thoracic spine was performed. Multiplanar reconstructions in the sagittal , coronal and oblique axial planes were performed. Using automated exposure control and adjustment o f the mA and/or kV according to patient size, radiation dose was kept as low as reasonably achievable to obtain optimal diagnostic quality images. DICOM format image data is available electronically f or review and comparison. FINDINGS: Alignment: Alignment is well-maintained when compared to recent MRI. There is no evidence of listhesis. Osseous structures and facet joints: Postsurgical changes following fusion from T7-T10 are again noted. A laminectomy defect is identified at the T8-T9 level. A vertebral body cage is identified in the T8-9 disc. Bone graft is seen along t he posterior elements. Vertebral bodies are otherwise in intact. There are no destructive changes. Intervertebral disc spaces: Stable Neurologic structures: Spinal canal remains widely patent without evidence of stenosis or compression. Extensive airspace disease and bilateral effusions remain evident in the lungs. CONCLUSION: 1. Stable thoracic spinal alignment following fusion from T7-T10. 2. No evidence of bony compromise of the central spinal canal. 3. Otherwise intact thoracic spine. 4. Significant bilateral lung disease with consolidating airspace disease and bilateral effusions. Kade Lima MD on August 24, 2017 at 15:18 Board Certified Radiologist. This report was verified electronically.
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
[2017-08-25] VITALS (18 sets, daily range): BP systolic 107–133; BP diastolic 56–73; PULSE 77–116; RESP 21–28; TEMP 99.7–101.5; O2SAT 93–100
[2017-08-25] MEDS: PIPERACIL-TAZO 4.5 GM PREMIX 100 ML IV SCH ×4 (03:39→21:37)
[2017-08-25] MEDS: FREE WATER G-TUBE SCH ×6 (04:00→20:00)
[2017-08-25] MEDS: CHLORHEXIDINE GLUCONATE 2 % 1 PACK (2 CLOTHS) TOP SCH (04:00)
[2017-08-25] MEDS: ACETAMINOPHEN 1000 MG/100 ML 100 ML IV PRN ×3 (04:38→23:30)
[2017-08-25] MEDS: BACITRACIN TOP OINT 15 GM TUBE TOPICAL SCH ×3 (06:00→22:31)
[2017-08-25] MEDS: INSULIN ASPART SUPPLEMENTAL SCALE SQ SCH ×4 (06:00→17:41)
[2017-08-25] MEDS: VANCOMYCIN INJ 1,500 MG in SODIUM CHLORID 0.9% 500 ML INJ 500 ML IV SCH (06:23)
[2017-08-25] MEDS: CHLORHEXIDINE 0.12% (ORAL KIT) 15 ML CUP MT SCH ×2 (08:00→20:00)
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
[2017-08-25] MEDS: COLLAGENASE OINT 30 GM TUBE TOPICAL SCH (09:00)
[2017-08-25] MEDS: MAGNESIUM HYDROXIDE SUSP 30 ML CUP PO SCH ×2 (09:00→21:00)
[2017-08-25] MEDS: SODIUM CHLORIDE FLUSH BID IV FLUSH SCH ×2 (09:00→21:37)
[2017-08-25] MEDS: hydrALAZINE HCL 25 MG TAB PO SCH ×2 (09:50→21:37)
[2017-08-25] MEDS: LANSOPRAZOLE SOLUTAB 30 MG TAB NG SCH (09:50)
[2017-08-25] MEDS: ENOXAPARIN SODIUM 40 MG/0.4 ML SYRINGE SQ SCH ×2 (09:50→21:40)
[2017-08-25] MEDS: METOPROLOL TARTRATE 50 MG TAB PO SCH ×2 (09:50→21:00)
[2017-08-25] MEDS: INSULIN DETEMIR 100 UNITS/ML VIAL SQ SCH ×2 (09:50→21:39)
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
[2017-08-25] MEDS ORDERED: LEVOFLOXACIN 750 MG PREMIX INJ 150 ML IV ONE (13:30)
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
[2017-08-26] VITALS (18 sets, daily range): BP systolic 135–176; BP diastolic 78–97; PULSE 86–124; RESP 25–34; TEMP 99–101.8; O2SAT 90–100
[2017-08-26] MEDS: VANCOMYCIN INJ 1,500 MG in SODIUM CHLORID 0.9% 500 ML INJ 500 ML IV SCH ×2 (00:36→21:00)
[2017-08-26] MEDS: PIPERACIL-TAZO 4.5 GM PREMIX 100 ML IV SCH ×4 (03:46→21:09)
[2017-08-26] MEDS: FREE WATER G-TUBE SCH ×6 (04:00→20:00)
[2017-08-26] MEDS: CHLORHEXIDINE GLUCONATE 2 % 1 PACK (2 CLOTHS) TOP SCH (04:00)
[2017-08-26 05:03] LABS: AUTOMATED NEUTROPHIL # 10.4 TH/MM3 (1.8-7.7); BASOPHIL # 0.1 TH/MM3 (0-0.2); BASOPHIL % 0.4 % (0.0-2.0); EOSINOPHIL % 0.3 % (0.0-4.0); HEMATOCRIT 28.3 % (39.0-51.0); LYMPH % 16.2 % (9.0-44.0); LYMPHOCYTE # 2.4 TH/MM3 (1.0-4.8); MEAN CELL VOLUME 82.8 FL (80.0-100.0); MEAN CORPUSCULAR HEMOGLOBIN 26.2 PG (27.0-34.0); MEAN CORPUSCULAR HGB CONC 31.7 % (32.0-36.0); MEAN PLATELET VOLUME 9.1 FL (7.0-11.0); MONOCYTE # 1.8 TH/MM3 (0-0.9); NEUT % 71.1 % (16.0-70.0); PLATELET COUNT 325 TH/MM3 (150-450); RED BLOOD COUNT 3.41 MIL/MM3 (4.50-5.90); RED CELL DISTRIBUTION WIDTH 19.3 % (11.6-17.2); WHITE BLOOD COUNT 14.7 TH/MM3 (4.0-11.0)
[2017-08-26 05:31] LABS: BICARBONATE 26.6 MEQ/L (21.0-32.0); CREATININE 0.6 MG/DL (0.60-1.30)
[2017-08-26] MEDS: INSULIN ASPART SUPPLEMENTAL SCALE SQ SCH ×4 (06:00→18:00)
[2017-08-26] MEDS: BACITRACIN TOP OINT 15 GM TUBE TOPICAL SCH ×3 (06:00→22:00)
[2017-08-26 07:53] LABS: BANDS 23 % (0-6); BASOPHILS 1 % (0-2); LYMPHOCYTES 14 % (9-44); MONOCYTES 12 % (0-8); NEUTROPHIL # MANUAL DIFF 10.7 TH/MM3 (1.8-7.7); POLYS (SEG NEUTROPHILS) 50 % (16-70)
[2017-08-26 08:00] LABS: BURR CELLS 1+ (NORMAL)
[2017-08-26] MEDS: SODIUM CHLORIDE FLUSH BID IV FLUSH SCH ×2 (09:00→21:00)
[2017-08-26] MEDS: MAGNESIUM HYDROXIDE SUSP 30 ML CUP PO SCH ×2 (09:00→21:00)
[2017-08-26] MEDS: INSULIN DETEMIR 100 UNITS/ML VIAL SQ SCH ×2 (09:00→21:09)
[2017-08-26] MEDS: CHLORHEXIDINE 0.12% (ORAL KIT) 15 ML CUP MT SCH ×2 (09:05→21:09)
[2017-08-26] MEDS: hydrALAZINE HCL 25 MG TAB PO SCH ×2 (09:06→21:05)
[2017-08-26] MEDS: LANSOPRAZOLE SOLUTAB 30 MG TAB NG SCH (09:06)
[2017-08-26] MEDS: METOPROLOL TARTRATE 50 MG TAB PO SCH ×2 (09:06→21:05)
[2017-08-26] MEDS: ENOXAPARIN SODIUM 40 MG/0.4 ML SYRINGE SQ SCH ×2 (09:07→21:06)
[2017-08-26] MEDS: COLLAGENASE OINT 30 GM TUBE TOPICAL SCH (09:07)
[2017-08-26] MEDS: RESP: ALBUTEROL 2.5 MG/IPRATROPIUM 0.5 MG NEB (PRN) NEB (09:58)
[2017-08-26] MEDS: LEVOFLOXACIN 750 MG TAB PO SCH (12:07)
[2017-08-26] MEDS: oxyCODONE HCL ORAL CONC 5 MG/0.25 ML SYRINGE PO PRN ×2 (12:09→18:06)
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
[2017-08-26] MEDS: ACETAMINOPHEN 1000 MG/100 ML 100 ML IV PRN (16:57)
[2017-08-26] MEDS ORDERED: PHARMACY ORDERED LAB ONE (17:45)
[2017-08-27] VITALS (17 sets, daily range): BP systolic 97–162; BP diastolic 60–94; PULSE 82–111; RESP 25–30; TEMP 99.7–101.5; O2SAT 93–100
[2017-08-27] MEDS: ACETAMINOPHEN 1000 MG/100 ML 100 ML IV PRN (03:04)
[2017-08-27] MEDS: PIPERACIL-TAZO 4.5 GM PREMIX 100 ML IV SCH ×4 (03:05→21:05)
[2017-08-27] MEDS: oxyCODONE HCL ORAL CONC 5 MG/0.25 ML SYRINGE PO PRN (03:08)
[2017-08-27] MEDS: FREE WATER G-TUBE SCH ×4 (04:00→21:06)
[2017-08-27] MEDS: CHLORHEXIDINE GLUCONATE 2 % 1 PACK (2 CLOTHS) TOP SCH (04:00)
[2017-08-27 05:49] LABS: AUTOMATED NEUTROPHIL # 12.5 TH/MM3 (1.8-7.7); BASOPHIL # 0.1 TH/MM3 (0-0.2); BASOPHIL % 0.4 % (0.0-2.0); EOSINOPHIL # 0.1 TH/MM3 (0-0.4); EOSINOPHIL % 0.5 % (0.0-4.0); HEMATOCRIT 23.6 % (39.0-51.0); HEMOGLOBIN 7.5 GM/DL (13.0-17.0); LYMPH % 10.5 % (9.0-44.0); LYMPHOCYTE # 1.7 TH/MM3 (1.0-4.8); MEAN CELL VOLUME 81.3 FL (80.0-100.0); MEAN CORPUSCULAR HEMOGLOBIN 25.9 PG (27.0-34.0); MEAN CORPUSCULAR HGB CONC 31.9 % (32.0-36.0); MEAN PLATELET VOLUME 8.6 FL (7.0-11.0); MONO % 12.3 % (0.0-8.0); NEUT % 76.3 % (16.0-70.0); PLATELET COUNT 387 TH/MM3 (150-450); RED CELL DISTRIBUTION WIDTH 19.8 % (11.6-17.2); WHITE BLOOD COUNT 16.3 TH/MM3 (4.0-11.0)
[2017-08-27] MEDS: BACITRACIN TOP OINT 15 GM TUBE TOPICAL SCH ×3 (06:00→16:00)
[2017-08-27] MEDS: INSULIN ASPART SUPPLEMENTAL SCALE SQ SCH ×4 (06:12→18:00)
[2017-08-27 06:26] LABS: BICARBONATE 25.4 MEQ/L (21.0-32.0); CALCIUM 7.8 MG/DL (8.5-10.1); CREATININE 0.66 MG/DL (0.60-1.30)
[2017-08-27] MEDS: CHLORHEXIDINE 0.12% (ORAL KIT) 15 ML CUP MT SCH ×2 (08:03→20:07)
[2017-08-27] MEDS: SODIUM CHLORIDE FLUSH BID IV FLUSH SCH ×2 (08:04→21:05)
[2017-08-27] MEDS: ENOXAPARIN SODIUM 40 MG/0.4 ML SYRINGE SQ SCH (08:04)
[2017-08-27] MEDS: LANSOPRAZOLE SOLUTAB 30 MG TAB NG SCH (08:04)
[2017-08-27] MEDS: MAGNESIUM HYDROXIDE SUSP 30 ML CUP PO SCH ×2 (08:04→20:54)
[2017-08-27] MEDS: INSULIN DETEMIR 100 UNITS/ML VIAL SQ SCH ×2 (08:05→21:00)
[2017-08-27] MEDS ORDERED: INSULIN DETEMIR 100 UNITS/ML VIAL SQ SCH (09:00)
[2017-08-27] MEDS: hydrALAZINE HCL 25 MG TAB PO SCH ×2 (09:00→21:00)
[2017-08-27] MEDS: COLLAGENASE OINT 30 GM TUBE TOPICAL SCH (09:00)
[2017-08-27] MEDS: LEVOFLOXACIN 750 MG TAB PO SCH (10:26)
[2017-08-27 10:41] LABS: BANDS 12 % (0-6); LYMPHOCYTES 13 % (9-44); MONOCYTES 12 % (0-8); MYELOCYTES 1 % (0-0); NEUTROPHIL # MANUAL DIFF 12.2 TH/MM3 (1.8-7.7); POLYS (SEG NEUTROPHILS) 62 % (16-70)
[2017-08-27 10:42] LABS: TOXIC GRANULATION 1+ (NORMAL)
[2017-08-27] MEDS: METOPROLOL TARTRATE 50 MG TAB PO SCH ×2 (10:55→20:54)
[2017-08-27] MEDS ORDERED: oxyCODONE HCL ORAL CONC 5 MG/0.25 ML SYRINGE PO PRN (11:00)
[2017-08-27] MEDS: MORPHINE SULFATE 4 MG/ML INJ IV PUSH PRN (13:15)
[2017-08-27] MEDS: SODIUM CHLORIDE 1 GRAM TAB PO SCH ×2 (13:22→20:54)
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
[2017-08-27] MEDS: VANCOMYCIN INJ 1,500 MG in SODIUM CHLORID 0.9% 500 ML INJ 500 ML IV SCH (15:25)
[2017-08-27] MEDS: FUROSEMIDE 20 MG/2 ML VIAL IV PUSH SCH (16:21)
--- NOTE | 2017-08-27 19:04 | HHI.PR ---
Addendum to Inpatient Note Additional Information Seen around 1200 Full note to follow Janette Tuttle MD Aug 27, 2017 19:04
[2017-08-27] MEDS: RESP: ALBUTEROL 2.5 MG/IPRATROPIUM 0.5 MG NEB (PRN) NEB (20:36)
[2017-08-27] MEDS: ENOXAPARIN SODIUM 30 MG/0.3 ML SYRINGE SQ SCH (21:46)
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
[2017-08-28] VITALS (18 sets, daily range): BP systolic 86–136; BP diastolic 45–81; PULSE 85–130; RESP 18–36; TEMP 99–101.1; O2SAT 92–100
[2017-08-28] MEDS: MORPHINE SULFATE 4 MG/ML INJ IV PUSH PRN ×2 (01:45→13:07)
[2017-08-28] MEDS: PIPERACIL-TAZO 4.5 GM PREMIX 100 ML IV SCH ×4 (02:01→22:00)
[2017-08-28] MEDS: ACETAMINOPHEN 1000 MG/100 ML 100 ML IV PRN ×3 (02:13→21:24)
[2017-08-28] MEDS: CHLORHEXIDINE GLUCONATE 2 % 1 PACK (2 CLOTHS) TOP SCH (03:23)
[2017-08-28 06:00] LABS: AUTOMATED NEUTROPHIL # 10.2 TH/MM3 (1.8-7.7); BASOPHIL # 0.1 TH/MM3 (0-0.2); BASOPHIL % 0.6 % (0.0-2.0); EOSINOPHIL # 0.1 TH/MM3 (0-0.4); EOSINOPHIL % 0.8 % (0.0-4.0); HEMATOCRIT 22.3 % (39.0-51.0); HEMOGLOBIN 7.1 GM/DL (13.0-17.0); LYMPH % 13.8 % (9.0-44.0); MEAN CELL VOLUME 80.6 FL (80.0-100.0); MEAN CORPUSCULAR HEMOGLOBIN 25.8 PG (27.0-34.0); MEAN PLATELET VOLUME 8.7 FL (7.0-11.0); MONO % 15.9 % (0.0-8.0); MONOCYTE # 2.3 TH/MM3 (0-0.9); NEUT % 68.9 % (16.0-70.0); PLATELET COUNT 438 TH/MM3 (150-450); RED BLOOD COUNT 2.77 MIL/MM3 (4.50-5.90); RED CELL DISTRIBUTION WIDTH 19.5 % (11.6-17.2); WHITE BLOOD COUNT 14.7 TH/MM3 (4.0-11.0)
[2017-08-28] MEDS: INSULIN ASPART SUPPLEMENTAL SCALE SQ SCH ×5 (06:02→23:44)
--- NOTE | 2017-08-28 06:07 | RADRPT ---
EXAM DATE/TIME: 08/28/2017 04:50 [facility] COMPARISON: CHEST SINGLE AP, August 23, 2017, 4:53. INDICATIONS : Short of breath. MEDICAL HISTORY : None. SURGICAL HISTORY : None. ENCOUNTER: Subsequent ACUITY: 1 week PAIN SCORE: 0/10 LOCATION: Bilateral chest FINDINGS: 2 AP portable semierect views of the chest were obtained and demonstrate airspace disease in the leah hilar regions and both lung bases. This appears mildly increased in density. The heart size remains p rominent. The tracheostomy tube remains in place. The patient is now more rotated to the left. The le ft costophrenic angle remains blunted. Overlying electrocardiogram leads are present. CONCLUSION: 1. Apparent mild interval increase in bilateral airspace disease of concern for pulmonary edema. 2. The patient is mildly rotated. Joselo Ortega MD on August 28, 2017 at 6:04 Board Certified Radiologist. This report was verified electronically.
[2017-08-28] MEDS: BACITRACIN TOP OINT 15 GM TUBE TOPICAL SCH ×3 (06:16→23:22)
[2017-08-28 06:23] LABS: CALCIUM 7.9 MG/DL (8.5-10.1); CREATININE 0.66 MG/DL (0.60-1.30)
[2017-08-28] MEDS: CHLORHEXIDINE 0.12% (ORAL KIT) 15 ML CUP MT SCH ×2 (08:00→19:59)
[2017-08-28 08:20] LABS: BANDS 14 % (0-6); CORRECTED NUCLEATED RBC 3 /100 WBC (0-0); LYMPHOCYTES 9 % (9-44); MONOCYTES 10 % (0-8); NEUTROPHIL # MANUAL DIFF 11.8 TH/MM3 (1.8-7.7); NUCLEATED RED BLOOD CELL 3 (0-0); POLYS (SEG NEUTROPHILS) 66 % (16-70); TOXIC VACUOLATION PRESENT (NONE SEEN)
[2017-08-28 08:21] LABS: DOHLE BODIES PRESENT (NONE SEEN); TOXIC GRANULATION 1+ (NORMAL)
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
[2017-08-28] MEDS: INSULIN DETEMIR 100 UNITS/ML VIAL SQ SCH ×2 (08:34→21:00)
[2017-08-28] MEDS: COLLAGENASE OINT 30 GM TUBE TOPICAL SCH ×2 (08:34→15:00)
[2017-08-28] MEDS: SODIUM CHLORIDE FLUSH BID IV FLUSH SCH ×2 (08:34→21:00)
[2017-08-28] MEDS: LANSOPRAZOLE SOLUTAB 30 MG TAB NG SCH (08:35)
[2017-08-28] MEDS: SODIUM CHLORIDE 1 GRAM TAB PO SCH ×2 (08:35→23:24)
[2017-08-28] MEDS: ENOXAPARIN SODIUM 30 MG/0.3 ML SYRINGE SQ SCH ×2 (08:35→21:00)
[2017-08-28] MEDS: FUROSEMIDE 20 MG/2 ML VIAL IV PUSH SCH ×2 (08:35→17:08)
[2017-08-28] MEDS: METOPROLOL TARTRATE 50 MG TAB PO SCH ×2 (08:35→21:00)
[2017-08-28] MEDS: hydrALAZINE HCL 25 MG TAB PO SCH ×2 (08:35→21:00)
[2017-08-28] MEDS: MAGNESIUM HYDROXIDE SUSP 30 ML CUP PO SCH ×2 (08:35→21:00)
[2017-08-28] MEDS: VANCOMYCIN INJ 1,500 MG in SODIUM CHLORID 0.9% 500 ML INJ 500 ML IV SCH (08:36)
[2017-08-28] MEDS: FREE WATER G-TUBE SCH (08:36)
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
[2017-08-28] MEDS: LEVOFLOXACIN 750 MG TAB PO SCH (10:33)
[2017-08-28] MEDS ORDERED: PROPOFOL 500 MG/50 ML INJ 50 ML ONE (10:57)
--- NOTE | 2017-08-28 11:35 | RADRPT ---
EXAM DATE/TIME: 08/28/2017 11:04 [facility] COMPARISON: CHEST SINGLE AP, August 28, 2017, 4:50. INDICATIONS : Shortness of breath. MEDICAL HISTORY : None. SURGICAL HISTORY : None. ENCOUNTER: Subsequent ACUITY: 1 week PAIN SCORE: Non-responsive. LOCATION: Bilateral chest FINDINGS: A single portable frontal view the chest shows no interval change. Bilateral pleural effusions and bi basilar pulmonary infiltrates remain. The heart is enlarged. Pulmonary vascular engorgement noted. Me miguel sternotomy wires and tracheostomy tube. CONCLUSION: Unchanged pulmonary edema. Giacomo Ervin Jr., MD on August 28, 2017 at 11:32 Board Certified Radiologist. This report was verified electronically.
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
[2017-08-28] MEDS ORDERED: LORazepam 2 MG/ML VIAL ONE (12:46)
[2017-08-28] MEDS ORDERED: ROCURONIUM INJ 50 MG/5 ML VIAL ONE (12:50)
[2017-08-28] MEDS: PROPOFOL 1000 MG/100 ML IV PRN ×2 (12:55→18:29)
[2017-08-28] MEDS ORDERED: MORPHINE SULFATE 2 MG/ML INJ IV ONE (13:45)
[2017-08-28] MEDS ORDERED: ROCURONIUM INJ 50 MG/5 ML VIAL IV PRN (13:45)
[2017-08-28] MEDS ORDERED: LORazepam 2 MG/ML VIAL IV PUSH ONE (13:45)
--- NOTE | 2017-08-28 15:17 | PD.WCN.NOT ---
Wound Consult Description: Received call from DARIN smallwood [facility] for reassessment of wound sacral area Communicated with: DARIN smallwood and Ashley Rodriguez [facility] trauma for orders Recommendation: 1) Please reposition patient every 2 hours for comfort and offloading. 2) Please use only single layer of UltraSorb underpad for incontinence. 3)Please cleanse wound to sacral area with NORMAL SALINE ONLY. Apply tayo thickness of Santyl ointment to wound bed and with 4x4 gauze pad. Apply Calazime barrier cream to periwound and cover entire wound with ABD pad secured with paper tape. Please apply skin prep before applying tape to skin.Change dressing daily 4) [facility] wound care nurse for deterioration of wound Additional Information: Patient seen for follow up of wound sacral area. Wound previously noted as denuded area with partial thickness skin loss to buttock area. Patient is noted laying on [facility] low airloss bed. Patient was turned to R side with the total assistance of Xochitl smallwood [facility] and specifications writer. Removed bordered gauze dressing in place to reveal wound to sacral and bilateral inner buttock areas. Wound measures ~12cm x ~9cm x slough. Wound is noted with mixed etiology of moisture, pressure and friction. Wound bed presents with ~40% pink tissue, and ~60% loosely adherent yellow slough.Presence of 60% slough in a pressure related wound indicates unstageable pressure injury. Periwound presents with denuded intact skin with blanchable erythema.Cleansed wound with normal saline and patted dry. Applied santyl ointment tayo thick to wound bed. Sprayed skin barrier film (skin prep) to periwound and applied ABD pad secured with paper tape. Patient was then positioned off bottom for offloading of pressure from danita prominences. Tiffany Rodriguez [facility] Aug 28, 2017 15:17
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
[2017-08-28] MEDS ORDERED: SODIUM CHLOR 0.9% 1000 ML INJ 1,000 ML IV ONE ×2 (20:00→21:30)
[2017-08-28] MEDS ORDERED: ALBUMIN 5% INJ 500 ML IV ONE (20:00)
--- NOTE | 2017-08-28 22:32 | PD.PROCEDR ---
Central Line Procedure REASON FOR PROCEDURE Central venous access PROCEDURE PERFORMED Central line placement: attempted left SC,right femoral vein[ ] CONSENT: emergency procedure ANESTHESIA Local injection of 1% Lidocaine DESCRIPTION OF THE PROCEDURE The patient was placed in supine, mild Trendelenburg position. The area was exposed and cleansed with ChloraPrep, times two. Large sterile drape was used to cover the patient, with the site exposed, under sterile conditions including cap, face mask, sterile gown, and sterile gloves. On single attempt, the introducer needle was inserted with negative pressure in syringe and venous flash was obtained. The guide wire was then advanced without any restriction and the needle was removed. The dilator was used without any complications. Using Seldinger technique the [ 3 lumen] catheter was advanced over the guide wire to a depth of [ 20] centimeters. The guide wire was removed. All ports were aspirated with dark venous blood return and flushed easily with sterile saline. All ports were capped. Antibiotic disc was placed around central line at puncture site. The central line was secured to the skin with two interrupted 2.0 silk sutures. The area was bandaged with sterile see-through central line bandage. RADIOLOGICAL DATA CXR pending for attempted left SC COMPLICATIONS: No apparent complications ESTIMATED BLOOD LOSS: Less than 1 cc. Nehal Turcios MD Aug 28, 2017 22:32
--- NOTE | 2017-08-28 22:59 | RADRPT ---
EXAM DATE/TIME: 08/28/2017 22:32 [facility] COMPARISON: CHEST SINGLE AP, August 28, 2017, 11:04. INDICATIONS : Evaluate for pneumothorax, attemped left subclavian line MEDICAL HISTORY : Non-responsive. SURGICAL HISTORY : Non-responsive. ENCOUNTER: Subsequent ACUITY: 1 week PAIN SCORE: Non-responsive. LOCATION: Left chest FINDINGS: Tracheostomy is stable and satisfactory position. There is no evidence of pneumothorax. Persistent di ffuse bilateral interstitial and alveolar parenchymal opacities most confluent in the bases. Cardiac contours are grossly stable. Thoracic spine fusion hardware is noted. CONCLUSION: No pneumothorax Kory Hadley MD on August 28, 2017 at 22:57 Board Certified Radiologist. This report was verified electronically.
[2017-08-28] MEDS: fentaNYL 2,500 MCG/NS 250 ML IV PRN (23:09)
[2017-08-29] VITALS (19 sets, daily range): BP systolic 81–120; BP diastolic 54–83; PULSE 89–128; RESP 22–31; TEMP 99–100.9; O2SAT 93–100
[2017-08-29] MEDS: VANCOMYCIN INJ 1,500 MG in SODIUM CHLORID 0.9% 500 ML INJ 500 ML IV SCH ×2 (02:24→21:50)
[2017-08-29] MEDS ORDERED: PHARMACY ORDERED LAB ONE (02:45)
[2017-08-29] MEDS: CHLORHEXIDINE GLUCONATE 2 % 1 PACK (2 CLOTHS) TOP SCH (03:14)
[2017-08-29] MEDS: PIPERACIL-TAZO 4.5 GM PREMIX 100 ML IV SCH ×4 (03:17→20:08)
[2017-08-29] MEDS: NOREPINEPHRINE 4 MG/D5W 250 ML IV PRN ×2 (03:23→15:13)
[2017-08-29] MEDS: COLLAGENASE OINT 30 GM TUBE TOPICAL SCH ×2 (04:45→09:00)
[2017-08-29 05:05] LABS: AUTOMATED NEUTROPHIL # 14.1 TH/MM3 (1.8-7.7); BASOPHIL # 0.1 TH/MM3 (0-0.2); BASOPHIL % 0.6 % (0.0-2.0); EOSINOPHIL # 0.3 TH/MM3 (0-0.4); EOSINOPHIL % 1.4 % (0.0-4.0); HEMATOCRIT 21.2 % (39.0-51.0); LYMPH % 13.9 % (9.0-44.0); LYMPHOCYTE # 2.7 TH/MM3 (1.0-4.8); MEAN CELL VOLUME 83.1 FL (80.0-100.0); MEAN CORPUSCULAR HEMOGLOBIN 25.9 PG (27.0-34.0); MEAN CORPUSCULAR HGB CONC 31.2 % (32.0-36.0); MONO % 11.7 % (0.0-8.0); MONOCYTE # 2.3 TH/MM3 (0-0.9); NEUT % 72.4 % (16.0-70.0); PLATELET COUNT 470 TH/MM3 (150-450); RED BLOOD COUNT 2.55 MIL/MM3 (4.50-5.90); RED CELL DISTRIBUTION WIDTH 19.6 % (11.6-17.2); WHITE BLOOD COUNT 19.5 TH/MM3 (4.0-11.0)
[2017-08-29 05:15] LABS: ALBUMIN 1.4 GM/DL (3.4-5.0); ALT (GPT) 88 U/L (12-78); AST (GOT) 160 U/L (15-37); BICARBONATE 26.8 MEQ/L (21.0-32.0); BLOOD UREA NITROGEN 20 MG/DL (7-18); CALCIUM 7.8 MG/DL (8.5-10.1); CHLORIDE 102 MEQ/L (98-107); CREATININE 0.84 MG/DL (0.60-1.30); GLOMERULAR FILTRATION RATE 94 ML/MIN (>89); GLUCOSE,RANDOM 199 MG/DL (74-106); SODIUM (NA) 137 MEQ/L (136-145)
[2017-08-29 05:18] LABS: ALKALINE PHOSPHATASE 110 U/L (45-117); TOTAL BILIRUBIN ADULT 0.3 MG/DL (0.2-1.0); TOTAL PROTEIN 6.5 GM/DL (6.4-8.2)
[2017-08-29 05:38] LABS: HEMOGLOBIN 6.6 GM/DL (13.0-17.0)
[2017-08-29] MEDS: INSULIN ASPART SUPPLEMENTAL SCALE SQ SCH ×4 (05:50→23:59)
[2017-08-29] MEDS: BACITRACIN TOP OINT 15 GM TUBE TOPICAL SCH ×3 (05:50→22:34)
--- NOTE | 2017-08-29 06:15 | RADRPT ---
EXAM DATE/TIME: 08/29/2017 05:01 [facility] COMPARISON: CHEST SINGLE AP, August 28, 2017, 22:32. INDICATIONS : Respiratory distress. MEDICAL HISTORY : Cardiovascular disease. Hypertension. Diabetes. SURGICAL HISTORY : Back surgery. ENCOUNTER: Subsequent ACUITY: 1 week PAIN SCORE: Non-responsive. LOCATION: Bilateral chest FINDINGS: A single AP portable semierect view of the chest was obtained and again demonstrates the tracheostomy tube in place. Bilateral airspace disease remains greatest in the perihilar regions and lung bases. This is not significantly changed. Postoperative changes are present in the thoracic spine status pos t multilevel fusion. The costophrenic angles are blunted bilaterally. Overlying electrocardiogram jenny ds and oxygen tubing are present. CONCLUSION: No significant change in the bilateral airspace disease. Joselo Ortega MD on August 29, 2017 at 6:13 Board Certified Radiologist. This report was verified electronically.
[2017-08-29 07:24] LABS: BANDS 31 % (0-6); LYMPHOCYTES 10 % (9-44); METAMYELOCYTES 3 % (0-1); MONOCYTES 6 % (0-8); NEUTROPHIL # MANUAL DIFF 15.6 TH/MM3 (1.8-7.7); POLYS (SEG NEUTROPHILS) 46 % (16-70)
[2017-08-29] MEDS: CHLORHEXIDINE 0.12% (ORAL KIT) 15 ML CUP MT SCH ×2 (08:00→20:10)
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
[2017-08-29] MEDS: LANSOPRAZOLE SOLUTAB 30 MG TAB NG SCH (08:57)
[2017-08-29] MEDS: MAGNESIUM HYDROXIDE SUSP 30 ML CUP PO SCH ×2 (08:57→20:09)
[2017-08-29] MEDS: FUROSEMIDE 20 MG/2 ML VIAL IV PUSH SCH ×2 (08:57→17:53)
[2017-08-29] MEDS: INSULIN DETEMIR 100 UNITS/ML VIAL SQ SCH ×2 (08:57→20:10)
[2017-08-29] MEDS: ENOXAPARIN SODIUM 30 MG/0.3 ML SYRINGE SQ SCH ×2 (08:57→20:08)
[2017-08-29] MEDS: SODIUM CHLORIDE 1 GRAM TAB PO SCH ×2 (08:57→20:08)
[2017-08-29] MEDS: SODIUM CHLORIDE FLUSH BID IV FLUSH SCH ×2 (09:00→20:09)
[2017-08-29] MEDS: LEVOFLOXACIN 750 MG TAB PO SCH (11:12)
[2017-08-29] MEDS: fentaNYL 2,500 MCG/NS 250 ML IV PRN ×2 (11:13→23:59)
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
[2017-08-29] MEDS: PROPOFOL 1000 MG/100 ML IV PRN (15:52)
[2017-08-29] MEDS: ACETAMINOPHEN 1000 MG/100 ML 100 ML IV PRN (16:57)
[2017-08-29] MEDS ORDERED: SODIUM CHLORIDE 0.9% FLUSH 10 ML FLUSH IV FLUSH PRN (17:00)
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
[2017-08-29 17:32] LABS: HEMATOCRIT 27.7 % (39.0-51.0); HEMOGLOBIN 8.9 GM/DL (13.0-17.0)
--- NOTE | 2017-08-29 17:52 | RADRPT ---
EXAM DATE/TIME: 08/29/2017 17:05 [facility] COMPARISON: CHEST SINGLE AP, August 29, 2017, 5:01. INDICATIONS : Picc line placement. MEDICAL HISTORY : Cardiovascular disease. Hypertension. Diabetes. SURGICAL HISTORY : Fusion, thoracic. ENCOUNTER: Subsequent ACUITY: 4 - 6 days PAIN SCORE: Non-responsive. LOCATION: Bilateral chest FINDINGS: Right-sided PICC line placement with tip obscured beyond the central SVC. Stable tracheostomy. Diffus e interstitial prominence with bilateral patchy airspace disease and likely small pleural effusions. Cardiomediastinal contours are stable. Remainder of exam is unchanged. CONCLUSION: 1. Right-sided PICC line tip obscured beyond the central SVC. 2. Stable pulmonary edema pattern. Seven Franco MD on August 29, 2017 at 17:49 Board Certified Radiologist. This report was verified electronically.
[2017-08-30] VITALS (17 sets, daily range): BP systolic 89–107; BP diastolic 58–71; PULSE 70–96; RESP 21–23; TEMP 98.6–99.7; O2SAT 96–99
[2017-08-30] MEDS: PIPERACIL-TAZO 4.5 GM PREMIX 100 ML IV SCH ×4 (02:09→21:03)
[2017-08-30 03:58] LABS: AUTOMATED NEUTROPHIL # 11.4 TH/MM3 (1.8-7.7); BASOPHIL # 0.3 TH/MM3 (0-0.2); BASOPHIL % 1.7 % (0.0-2.0); EOSINOPHIL # 0.4 TH/MM3 (0-0.4); EOSINOPHIL % 2.5 % (0.0-4.0); HEMATOCRIT 25.4 % (39.0-51.0); HEMOGLOBIN 8.5 GM/DL (13.0-17.0); LYMPH % 11.1 % (9.0-44.0); LYMPHOCYTE # 1.7 TH/MM3 (1.0-4.8); MEAN CELL VOLUME 81.2 FL (80.0-100.0); MEAN CORPUSCULAR HEMOGLOBIN 27.3 PG (27.0-34.0); MEAN CORPUSCULAR HGB CONC 33.6 % (32.0-36.0); MEAN PLATELET VOLUME 8.9 FL (7.0-11.0); MONO % 9.3 % (0.0-8.0); MONOCYTE # 1.4 TH/MM3 (0-0.9); NEUT % 75.4 % (16.0-70.0); PLATELET COUNT 462 TH/MM3 (150-450); RED BLOOD COUNT 3.13 MIL/MM3 (4.50-5.90); RED CELL DISTRIBUTION WIDTH 18.6 % (11.6-17.2); WHITE BLOOD COUNT 15.2 TH/MM3 (4.0-11.0)
[2017-08-30] MEDS: PROPOFOL 1000 MG/100 ML IV PRN (03:59)
[2017-08-30] MEDS: CHLORHEXIDINE GLUCONATE 2 % 1 PACK (2 CLOTHS) TOP SCH (03:59)
[2017-08-30 04:24] LABS: ALBUMIN 1.3 GM/DL (3.4-5.0); ALT (GPT) 142 U/L (12-78); AST (GOT) 131 U/L (15-37); BICARBONATE 28.4 MEQ/L (21.0-32.0); BLOOD UREA NITROGEN 21 MG/DL (7-18); CALCIUM 7.7 MG/DL (8.5-10.1); CHLORIDE 105 MEQ/L (98-107); CREATININE 0.85 MG/DL (0.60-1.30); GLOMERULAR FILTRATION RATE 93 ML/MIN (>89); GLUCOSE,RANDOM 142 MG/DL (74-106); SODIUM (NA) 140 MEQ/L (136-145)
[2017-08-30 04:26] LABS: ALKALINE PHOSPHATASE 116 U/L (45-117); TOTAL BILIRUBIN ADULT 0.3 MG/DL (0.2-1.0); TOTAL PROTEIN 6.2 GM/DL (6.4-8.2)
[2017-08-30] MEDS: INSULIN ASPART SUPPLEMENTAL SCALE SQ SCH ×4 (05:20→23:59)
[2017-08-30] MEDS: BACITRACIN TOP OINT 15 GM TUBE TOPICAL SCH ×3 (05:23→22:00)
[2017-08-30 07:05] LABS: BANDS 12 % (0-6); LYMPHOCYTES 11 % (9-44); METAMYELOCYTES 7 % (0-1); MONOCYTES 3 % (0-8); MYELOCYTES 3 % (0-0); NEUTROPHIL # MANUAL DIFF 12.3 TH/MM3 (1.8-7.7); POLYS (SEG NEUTROPHILS) 59 % (16-70)
--- NOTE | 2017-08-30 07:10 | RADRPT ---
EXAM DATE/TIME: 08/30/2017 05:27 [facility] COMPARISON: CHEST SINGLE AP, August 29, 2017, 17:05. INDICATIONS : Shortness of breath. MEDICAL HISTORY : Cardiovascular disease. Hypertension. Diabetes. SURGICAL HISTORY : Fusion, thoracic. ENCOUNTER: Subsequent ACUITY: 4 - 6 days PAIN SCORE: Non-responsive. LOCATION: Bilateral chest FINDINGS: A single AP semierect view of the chest was obtained. The patient is rotated to the left. Bilateral a irspace disease remains right greater than left. The heart size remains moderately enlarged. Both cos tophrenic angles appear blunted. The tracheostomy tube remains in place. CONCLUSION: Rotated examination with no significant change in the bilateral airspace disease most characteristic of pulmonary edema. Joselo Ortega MD on August 30, 2017 at 7:08 Board Certified Radiologist. This report was verified electronically.
[2017-08-30] MEDS: CHLORHEXIDINE 0.12% (ORAL KIT) 15 ML CUP MT SCH ×2 (08:00→20:00)
[2017-08-30] MEDS: SODIUM CHLORIDE FLUSH BID IV FLUSH SCH ×2 (09:00→21:00)
[2017-08-30] MEDS: MAGNESIUM HYDROXIDE SUSP 30 ML CUP PO SCH ×2 (09:00→21:00)
[2017-08-30] MEDS: COLLAGENASE OINT 30 GM TUBE TOPICAL SCH ×2 (09:00)
[2017-08-30] MEDS: INSULIN DETEMIR 100 UNITS/ML VIAL SQ SCH ×2 (09:00→21:00)
[2017-08-30] MEDS: SODIUM CHLORIDE 0.9% FLUSH 10 ML FLUSH IV FLUSH SCH (09:00)
[2017-08-30] MEDS: FUROSEMIDE 20 MG/2 ML VIAL IV PUSH SCH ×2 (09:14→17:36)
[2017-08-30] MEDS: SODIUM CHLORIDE 1 GRAM TAB PO SCH ×2 (09:14→21:04)
[2017-08-30] MEDS: LANSOPRAZOLE SOLUTAB 30 MG TAB NG SCH (09:14)
[2017-08-30] MEDS: ENOXAPARIN SODIUM 30 MG/0.3 ML SYRINGE SQ SCH ×2 (09:15→21:00)
[2017-08-30] MEDS: fentaNYL 2,500 MCG/NS 250 ML IV PRN ×2 (11:19→22:19)
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
[2017-08-30] MEDS: LEVOFLOXACIN 750 MG TAB PO SCH (12:35)
[2017-08-30] MEDS: VANCOMYCIN INJ 1,500 MG in SODIUM CHLORID 0.9% 500 ML INJ 500 ML IV SCH (15:00)
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
[2017-08-31] VITALS (18 sets, daily range): BP systolic 98–114; BP diastolic 56–74; PULSE 70–100; RESP 21–30; TEMP 99.3–100.3; O2SAT 94–100
[2017-08-31] MEDS: PROPOFOL 1000 MG/100 ML IV PRN (01:47)
[2017-08-31] MEDS: CHLORHEXIDINE GLUCONATE 2 % 1 PACK (2 CLOTHS) TOP SCH (03:07)
[2017-08-31] MEDS: PIPERACIL-TAZO 4.5 GM PREMIX 100 ML IV SCH ×4 (03:07→20:24)
[2017-08-31 03:30] LABS: AUTOMATED NEUTROPHIL # 11.5 TH/MM3 (1.8-7.7); BASOPHIL # 0.1 TH/MM3 (0-0.2); BASOPHIL % 0.5 % (0.0-2.0); EOSINOPHIL # 0.5 TH/MM3 (0-0.4); EOSINOPHIL % 2.9 % (0.0-4.0); HEMATOCRIT 26.3 % (39.0-51.0); HEMOGLOBIN 8.7 GM/DL (13.0-17.0); LYMPH % 16.3 % (9.0-44.0); LYMPHOCYTE # 2.6 TH/MM3 (1.0-4.8); MEAN CELL VOLUME 80.7 FL (80.0-100.0); MEAN CORPUSCULAR HEMOGLOBIN 26.7 PG (27.0-34.0); MEAN CORPUSCULAR HGB CONC 33.1 % (32.0-36.0); MEAN PLATELET VOLUME 8.4 FL (7.0-11.0); MONO % 8.7 % (0.0-8.0); MONOCYTE # 1.4 TH/MM3 (0-0.9); NEUT % 71.6 % (16.0-70.0); PLATELET COUNT 540 TH/MM3 (150-450); RED BLOOD COUNT 3.26 MIL/MM3 (4.50-5.90); RED CELL DISTRIBUTION WIDTH 18.9 % (11.6-17.2)
[2017-08-31 03:41] LABS: ALBUMIN 1.2 GM/DL (3.4-5.0); ALT (GPT) 115 U/L (12-78); AST (GOT) 87 U/L (15-37); BICARBONATE 28.6 MEQ/L (21.0-32.0); BLOOD UREA NITROGEN 18 MG/DL (7-18); CHLORIDE 102 MEQ/L (98-107); CREATININE 0.75 MG/DL (0.60-1.30); GLOMERULAR FILTRATION RATE 107 ML/MIN (>89); GLUCOSE,RANDOM 186 MG/DL (74-106); SODIUM (NA) 137 MEQ/L (136-145)
[2017-08-31 03:43] LABS: ALKALINE PHOSPHATASE 97 U/L (45-117); TOTAL BILIRUBIN ADULT 0.3 MG/DL (0.2-1.0); TOTAL PROTEIN 6.3 GM/DL (6.4-8.2)
[2017-08-31 04:45] LABS: BANDS 19 % (0-6); CORRECTED NUCLEATED RBC 1 /100 WBC (0-0); LYMPHOCYTES 9 % (9-44); METAMYELOCYTES 12 % (0-1); MONOCYTES 3 % (0-8); MYELOCYTES 2 % (0-0); NEUTROPHIL # MANUAL DIFF 13.6 TH/MM3 (1.8-7.7); NUCLEATED RED BLOOD CELL 1 (0-0); POLYS (SEG NEUTROPHILS) 52 % (16-70); TOXIC GRANULATION 1+ (NORMAL)
[2017-08-31 04:46] LABS: TOXIC VACUOLATION PRESENT (NONE SEEN)
[2017-08-31] MEDS: BACITRACIN TOP OINT 15 GM TUBE TOPICAL SCH ×3 (06:00→22:00)
[2017-08-31] MEDS: INSULIN ASPART SUPPLEMENTAL SCALE SQ SCH ×4 (06:00→23:57)
--- NOTE | 2017-08-31 06:31 | RADRPT ---
EXAM DATE/TIME: 08/31/2017 06:07 [facility] COMPARISON: CHEST SINGLE AP, August 30, 2017, 5:27. INDICATIONS : Respiratory distress. MEDICAL HISTORY : Cardiovascular disease. Hypertension. Diabetes. SURGICAL HISTORY : Fusion, thoracic. ENCOUNTER: Subsequent ACUITY: 1 week PAIN SCORE: Non-responsive. LOCATION: Bilateral chest FINDINGS: A single AP portable semierect view of the chest was obtained. The study is less rotated than the addison or study. Bilateral airspace disease remains greatest at the lung bases. The heart size is moderately enlarged. Both costophrenic angles remain blunted. The tracheostomy tube remains in place. There is a right-sided PICC line again noted. Postoperative changes again noted status post multilevel fusion in length drastic spine. CONCLUSION: No significant change. Joselo Ortega MD on August 31, 2017 at 6:28 Board Certified Radiologist. This report was verified electronically.
[2017-08-31] MEDS: NOREPINEPHRINE 4 MG/D5W 250 ML IV PRN (07:00)
[2017-08-31] MEDS: CHLORHEXIDINE 0.12% (ORAL KIT) 15 ML CUP MT SCH ×2 (08:00→20:00)
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
[2017-08-31] MEDS: VANCOMYCIN INJ 1,500 MG in SODIUM CHLORID 0.9% 500 ML INJ 500 ML IV SCH (08:58)
[2017-08-31] MEDS: LANSOPRAZOLE SOLUTAB 30 MG TAB NG SCH (08:58)
[2017-08-31] MEDS: SODIUM CHLORIDE 1 GRAM TAB PO SCH ×2 (08:58→20:24)
[2017-08-31] MEDS: FUROSEMIDE 20 MG/2 ML VIAL IV PUSH SCH ×2 (08:59→18:00)
[2017-08-31] MEDS: SODIUM CHLORIDE FLUSH BID IV FLUSH SCH ×2 (08:59→20:24)
[2017-08-31] MEDS: SODIUM CHLORIDE 0.9% FLUSH 10 ML FLUSH IV FLUSH SCH (08:59)
[2017-08-31] MEDS: INSULIN DETEMIR 100 UNITS/ML VIAL SQ SCH ×2 (09:00→20:25)
[2017-08-31] MEDS: MAGNESIUM HYDROXIDE SUSP 30 ML CUP PO SCH ×2 (09:00→20:24)
[2017-08-31] MEDS: ENOXAPARIN SODIUM 30 MG/0.3 ML SYRINGE SQ SCH ×2 (09:00→20:25)
[2017-08-31] MEDS: COLLAGENASE OINT 30 GM TUBE TOPICAL SCH ×2 (09:00)
[2017-08-31] MEDS: LEVOFLOXACIN 750 MG TAB PO SCH (11:15)
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
[2017-09-01] VITALS (18 sets, daily range): BP systolic 111–147; BP diastolic 62–79; PULSE 74–100; RESP 22–28; TEMP 99.7–100; O2SAT 92–97
[2017-09-01] MEDS: VANCOMYCIN INJ 1,500 MG in SODIUM CHLORID 0.9% 500 ML INJ 500 ML IV SCH ×2 (02:00→23:25)
[2017-09-01] MEDS: PIPERACIL-TAZO 4.5 GM PREMIX 100 ML IV SCH ×4 (02:00→23:26)
[2017-09-01] MEDS: CHLORHEXIDINE GLUCONATE 2 % 1 PACK (2 CLOTHS) TOP SCH ×2 (04:00→23:30)
[2017-09-01] MEDS: BACITRACIN TOP OINT 15 GM TUBE TOPICAL SCH ×3 (05:44→22:00)
[2017-09-01] MEDS: INSULIN ASPART SUPPLEMENTAL SCALE SQ SCH ×3 (05:44→18:00)
[2017-09-01] MEDS: CHLORHEXIDINE 0.12% (ORAL KIT) 15 ML CUP MT SCH ×2 (08:00→20:00)
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
[2017-09-01] MEDS: COLLAGENASE OINT 30 GM TUBE TOPICAL SCH ×2 (09:00)
[2017-09-01] MEDS: MAGNESIUM HYDROXIDE SUSP 30 ML CUP PO SCH ×2 (09:00→21:00)
[2017-09-01] MEDS: SODIUM CHLORIDE 0.9% FLUSH 10 ML FLUSH IV FLUSH SCH (09:00)
[2017-09-01] MEDS: INSULIN DETEMIR 100 UNITS/ML VIAL SQ SCH ×2 (09:00→23:28)
[2017-09-01] MEDS: SODIUM CHLORIDE FLUSH BID IV FLUSH SCH ×2 (09:00→21:00)
[2017-09-01] MEDS: LANSOPRAZOLE SOLUTAB 30 MG TAB NG SCH (10:32)
[2017-09-01] MEDS: SODIUM CHLORIDE 1 GRAM TAB PO SCH ×2 (10:32→23:28)
[2017-09-01] MEDS: ENOXAPARIN SODIUM 30 MG/0.3 ML SYRINGE SQ SCH ×2 (10:33→23:29)
[2017-09-01] MEDS: FUROSEMIDE 20 MG/2 ML VIAL IV PUSH SCH ×2 (10:33→18:21)
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
[2017-09-01] MEDS: LEVOFLOXACIN 750 MG TAB PO SCH (14:15)
[2017-09-02] VITALS (17 sets, daily range): BP systolic 119–147; BP diastolic 64–76; PULSE 73–95; RESP 21–32; TEMP 99–100.5; O2SAT 89–100
[2017-09-02] MEDS: INSULIN ASPART SUPPLEMENTAL SCALE SQ SCH ×4 (01:09→17:42)
[2017-09-02] MEDS: MORPHINE SULFATE 4 MG/ML INJ IV PUSH PRN (01:09)
[2017-09-02] MEDS: PIPERACIL-TAZO 4.5 GM PREMIX 100 ML IV SCH ×4 (03:26→22:27)
[2017-09-02 05:05] LABS: CREATININE 0.84 MG/DL (0.60-1.30)
[2017-09-02] MEDS: BACITRACIN TOP OINT 15 GM TUBE TOPICAL SCH ×3 (05:36→22:57)
[2017-09-02] MEDS: CHLORHEXIDINE 0.12% (ORAL KIT) 15 ML CUP MT SCH ×2 (07:22→20:00)
[2017-09-02] MEDS: SODIUM CHLORIDE 0.9% FLUSH 10 ML FLUSH IV FLUSH SCH (08:00)
[2017-09-02] MEDS: SODIUM CHLORIDE FLUSH BID IV FLUSH SCH ×2 (08:01→21:00)
[2017-09-02] MEDS: SODIUM CHLORIDE 1 GRAM TAB PO SCH ×2 (08:15→23:01)
[2017-09-02] MEDS: ENOXAPARIN SODIUM 30 MG/0.3 ML SYRINGE SQ SCH ×2 (08:15→22:57)
[2017-09-02] MEDS: LANSOPRAZOLE SOLUTAB 30 MG TAB NG SCH (08:15)
[2017-09-02] MEDS: FUROSEMIDE 20 MG/2 ML VIAL IV PUSH SCH ×2 (08:15→17:06)
[2017-09-02] MEDS: MAGNESIUM HYDROXIDE SUSP 30 ML CUP PO SCH ×2 (08:15→22:56)
[2017-09-02] MEDS: COLLAGENASE OINT 30 GM TUBE TOPICAL SCH ×2 (08:16)
[2017-09-02] MEDS: INSULIN DETEMIR 100 UNITS/ML VIAL SQ SCH ×2 (08:16→22:28)
[2017-09-02] MEDS: LEVOFLOXACIN 750 MG TAB PO SCH (10:59)
[2017-09-02] MEDS: fentaNYL 2,500 MCG/NS 250 ML IV PRN (10:59)
[2017-09-02] MEDS: VANCOMYCIN INJ 1,500 MG in SODIUM CHLORID 0.9% 500 ML INJ 500 ML IV SCH (15:49)
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
[2017-09-02] MEDS: RESP: ALBUTEROL 2.5 MG/IPRATROPIUM 0.5 MG NEB (PRN) NEB (21:54)
[2017-09-02] MEDS: ENALAPRILAT 1.25 MG/ML VIAL IV PUSH PRN (21:56)
[2017-09-02] MEDS: ACETAMINOPHEN 1000 MG/100 ML 100 ML IV PRN (21:56)
[2017-09-03] VITALS (14 sets, daily range): BP systolic 88–188; BP diastolic 50–99; PULSE 102–134; RESP 28–34; TEMP 99–101.5; O2SAT 85–97
[2017-09-03] MEDS: PROPOFOL 1000 MG/100 ML IV PRN (00:07)
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
[2017-09-03] MEDS ORDERED: MIDAZOLAM HCL 5 MG/ML VIAL (1 ML) ONE (00:25)
[2017-09-03] MEDS ORDERED: SODIUM CHLOR 0.9% IV SCH (00:30)
[2017-09-03] MEDS ORDERED: EPOPROSTENOL IV SCH (00:30)
[2017-09-03] MEDS ORDERED: NOREPINEPHRINE 4 MG/4 ML AMP ONE (00:35)
[2017-09-03] MEDS ORDERED: FUROSEMIDE 100 MG/10 ML VIAL IV PUSH ONE (00:45)
[2017-09-03] MEDS ORDERED: MIDAZOLAM HCL 5 MG/ML VIAL (1 ML) IV ONE (00:45)
[2017-09-03] MEDS ORDERED: TERBUTALINE INJ 1 MG/ML AMP SQ PRN (00:45)
[2017-09-03] MEDS ORDERED: NOREPINEPHRINE-DEXTROSE DRIP 250 ML IV PRN (00:45)
[2017-09-03] MEDS: MIDAZOLAM 100 MG/100 ML INJ 100 ML IV PRN ×2 (00:56→07:54)
[2017-09-03] MEDS: CISATRACURIUM INJ 100 MG in SODIUM CHLOR 0.9% 250 ML INJ 250 ML IV PRN ×2 (01:00→05:54)
[2017-09-03] MEDS: PIPERACIL-TAZO 4.5 GM PREMIX 100 ML IV SCH ×3 (03:30→13:43)
[2017-09-03] MEDS: fentaNYL 2,500 MCG/NS 250 ML IV PRN ×2 (03:54→14:27)
[2017-09-03] MEDS: CHLORHEXIDINE GLUCONATE 2 % 1 PACK (2 CLOTHS) TOP SCH (04:00)
[2017-09-03] MEDS: INSULIN ASPART SUPPLEMENTAL SCALE SQ SCH ×3 (06:00→11:15)
[2017-09-03] MEDS: BACITRACIN TOP OINT 15 GM TUBE TOPICAL SCH ×2 (06:00→13:44)
[2017-09-03] MEDS: SODIUM CHLORIDE 0.9% FLUSH 10 ML FLUSH IV FLUSH SCH (07:31)
[2017-09-03] MEDS: CHLORHEXIDINE 0.12% (ORAL KIT) 15 ML CUP MT SCH (07:31)
[2017-09-03] MEDS: SODIUM CHLORIDE FLUSH BID IV FLUSH SCH (07:31)
[2017-09-03] MEDS: MAGNESIUM HYDROXIDE SUSP 30 ML CUP PO SCH (07:54)
[2017-09-03] MEDS: COLLAGENASE OINT 30 GM TUBE TOPICAL SCH ×2 (07:55→07:56)
[2017-09-03] MEDS: SODIUM CHLORIDE 1 GRAM TAB PO SCH (07:55)
[2017-09-03] MEDS: FUROSEMIDE 20 MG/2 ML VIAL IV PUSH SCH (07:55)
[2017-09-03] MEDS: LANSOPRAZOLE SOLUTAB 30 MG TAB NG SCH (07:55)
[2017-09-03] MEDS: ENOXAPARIN SODIUM 30 MG/0.3 ML SYRINGE SQ SCH (07:55)
[2017-09-03] MEDS: INSULIN DETEMIR 100 UNITS/ML VIAL SQ SCH (07:56)
[2017-09-03] MEDS: VANCOMYCIN INJ 1,500 MG in SODIUM CHLORID 0.9% 500 ML INJ 500 ML IV SCH (07:56)
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
[2017-09-03] MEDS: NOREPINEPHRINE-DEXTROSE DRIP 250 ML IV PRN ×2 (10:07→10:42)
[2017-09-03] MEDS: LEVOFLOXACIN 750 MG TAB PO SCH (11:14)
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
[2017-09-03] MEDS ORDERED: MICAFUNGIN INJ 100 MG in SODIUM CHLORIDE 0.9% INJ 100 ML IV SCH (14:00)
[2017-09-03] MEDS ORDERED: PHARMACY ORDERED LAB ONE (14:45)
[2017-09-03 14:58] LABS: AMORPHOUS SEDIMENT, URINE OCC; BACTERIA, URINE FEW /hpf; BILIRUBIN, URINE NEG (NEG); BLOOD, URINE MOD (NEG); GLUCOSE,URINE NEG (NEG); KETONE, URINE NEG (NEG); NITRITE,URINE NEG (NEG); PH, URINE 5.5 (5.0-8.5); URINE COLOR YELLOW (YELLW/STRAW); URINE LEUKOCYTE ESTERASE SMALL (NEG)
[2017-09-03] MEDS ORDERED: CHLORHEXIDINE 0.12% (ORAL KIT) 15 ML CUP MT SCH (20:00)
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
== END 2017-09-03 20:20 | disposition expired | DRG 3 ==
LOC: NEPI 09:19 → NEDA 09:35 → EDBD 09:35 → N03B 10:44 → N03A 07-27 01:17
PROVIDERS: ADMIT Surgery; ATTEND Surgery Surgical Critical Care
PROC: 009630Z Drainage of Cerebral Ventricle with Drainage Device, Percutaneous Approach (ICD-10-PCS; 2017-07-05)
PROC: 03HY32Z Insertion of Monitoring Device into Upper Artery, Percutaneous Approach (ICD-10-PCS; 2017-07-05)
PROC: 0W9930Z Drainage of Right Pleural Cavity with Drainage Device, Percutaneous Approach (ICD-10-PCS; 2017-07-05)
PROC: 02HV33Z Insertion of Infusion Device into Superior Vena Cava, Percutaneous Approach (ICD-10-PCS; 2017-07-05)
PROC: 5A1955Z Respiratory Ventilation, Greater than 96 Consecutive Hours (ICD-10-PCS; 2017-07-05)
PROC: 0RT90ZZ Resection of Thoracic Vertebral Disc, Open Approach (ICD-10-PCS; 2017-07-06)
PROC: 0PS404Z Reposition Thoracic Vertebra with Internal Fixation Device, Open Approach (ICD-10-PCS; 2017-07-06)
PROC: 0RG70AJ Fusion of 2 to 7 Thoracic Vertebral Joints with Interbody Fusion Device, Posterior Approach, Anterior Column, Open Approach (ICD-10-PCS; principal; 2017-07-06 16:15)
PROC: 00NX0ZZ Release Thoracic Spinal Cord, Open Approach (ICD-10-PCS; 2017-07-12)
PROC: 0RB90ZZ Excision of Thoracic Vertebral Disc, Open Approach (ICD-10-PCS; 2017-07-12)
PROC: 01N80ZZ Release Thoracic Nerve, Open Approach (ICD-10-PCS; 2017-07-12)
PROC: 0PU Upper Bones, Supplement (ICD-10-PCS; 2017-07-12)
PROC: 00CX0ZZ Extirpation of Matter from Thoracic Spinal Cord, Open Approach (ICD-10-PCS; 2017-07-12)
PROC: 0DH63UZ Insertion of Feeding Device into Stomach, Percutaneous Approach (ICD-10-PCS; 2017-07-13)
PROC: 0B113F4 Bypass Trachea to Cutaneous with Tracheostomy Device, Percutaneous Approach (ICD-10-PCS; 2017-07-20)
PROC: 5A1955Z Respiratory Ventilation, Greater than 96 Consecutive Hours (ICD-10-PCS; 2017-07-20)
PROC: 0B21XFZ Change Tracheostomy Device in Trachea, External Approach (ICD-10-PCS; 2017-07-20)
PROC: 0BJ08ZZ Inspection of Tracheobronchial Tree, Via Natural or Artificial Opening Endoscopic (ICD-10-PCS; 2017-07-20)
PROC: 3E1F88Z Irrigation of Respiratory Tract using Irrigating Substance, Via Natural or Artificial Opening Endoscopic (ICD-10-PCS; 2017-07-28)
PROC: 02HV33Z Insertion of Infusion Device into Superior Vena Cava, Percutaneous Approach (ICD-10-PCS; 2017-08-13)
PROC: 06HM33Z Insertion of Infusion Device into Right Femoral Vein, Percutaneous Approach (ICD-10-PCS; 2017-08-28)
DX: S24.103A Unspecified injury at T7-T10 level of thoracic spinal cord, initial encounter (principal); R65.21 Severe sepsis with septic shock; A41.9 Sepsis, unspecified organism; S27.2XXA Traumatic hemopneumothorax, initial encounter; N17.9 Acute kidney failure, unspecified; J95.851 Ventilator associated pneumonia; S36.112A Contusion of liver, initial encounter; J80 Acute respiratory distress syndrome; I95.9 Hypotension, unspecified; S32.019A Unspecified fracture of first lumbar vertebra, initial encounter for closed fracture; J98.11 Atelectasis; B37.49 Other urogenital candidiasis; J96.01 Acute respiratory failure with hypoxia; S06.6X9A Traumatic subarachnoid hemorrhage with loss of consciousness of unspecified duration, initial encounter; S32.029A Unspecified fracture of second lumbar vertebra, initial encounter for closed fracture; S32.039A Unspecified fracture of third lumbar vertebra, initial encounter for closed fracture; G82.20 Paraplegia, unspecified; S22.43XA Multiple fractures of ribs, bilateral, initial encounter for closed fracture; S27.321A Contusion of lung, unilateral, initial encounter; G97.61 Postprocedural hematoma of a nervous system organ or structure following a nervous system procedure; J95.03 Malfunction of tracheostomy stoma; S32.049A Unspecified fracture of fourth lumbar vertebra, initial encounter for closed fracture; S32.059A Unspecified fracture of fifth lumbar vertebra, initial encounter for closed fracture; F02.81 Dementia in other diseases classified elsewhere, unspecified severity, with behavioral disturbance; K52.1 Toxic gastroenteritis and colitis; E87.2 Acidosis; T81.30XA Disruption of wound, unspecified, initial encounter; S01.01XA Laceration without foreign body of scalp, initial encounter; D69.6 Thrombocytopenia, unspecified; E86.1 Hypovolemia; S22.068A Other fracture of T7-T8 thoracic vertebra, initial encounter for closed fracture; S22.078A Other fracture of T9-T10 vertebra, initial encounter for closed fracture; M48.04 Spinal stenosis, thoracic region; R40.2431 Glasgow coma scale score 3-8, in the field [EMT or ambulance]; B96.20 Unspecified Escherichia coli [E. coli] as the cause of diseases classified elsewhere; B96.5 Pseudomonas (aeruginosa) (mallei) (pseudomallei) as the cause of diseases classified elsewhere; K20.9 Esophagitis, unspecified; L89.150 Pressure ulcer of sacral region, unstageable; T36.95XA Adverse effect of unspecified systemic antibiotic, initial encounter; E11.22 Type 2 diabetes mellitus with diabetic chronic kidney disease; E11.649 Type 2 diabetes mellitus with hypoglycemia without coma; E11.65 Type 2 diabetes mellitus with hyperglycemia; E87.6 Hypokalemia; E87.70 Fluid overload, unspecified; N18.9 Chronic kidney disease, unspecified; Z16.24 Resistance to multiple antibiotics; Z51.5 Encounter for palliative care; V43.52XA Car driver injured in collision with other type car in traffic accident, initial encounter; Y92.411 Interstate highway as the place of occurrence of the external cause
CPT/HCPCS: 31500; 31600; 31624; 36430; 36556; 36569; 36600; 61210; 70450; 70486; 70496; 70498; 70551; 71010; 71045; 71260; 71275; 72070; 72125; 72128; 72129; 72132; 72141; 72146; 72170; 74177; 76000; 76937; 80048; 80053; 80076; 80202; 80307; 81001; 82435; 82565; 82805; 82947; 82948; 83605; 83735; 84100; 84132; 84295; 84520; 85007; 85014; 85018; 85025; 85027; 85379; 85610; 85730; 86850; 86900; 86901; 86920; 86922; 87040; 87070; 87077; 87086; 87185; 87186; 87205; 87493; 90471; 90715; 93005; 94002; 94003; 94640; 94664; 94770; 94799; 95819; 96374; 96375; 99291; A7521; C1713; C9113; C9290; G0390; J0131; J0360; J0690; J0692; J0743; J1120; J1325; J1580; J1644; J1650; J1815; J1940; J1953; J1956; J2060; J2248; J2250; J2270; J2370; J2543; J3010; J3370; J3480; J7030; J7040; J7050; L0200; L0484; P9016; P9045; Q9967